=== PATIENT | female | born 1960 | race American Indian/Alaskan Native ===

== ENCOUNTER 2018-03-08 21:26 | Emergency (ER) | payer SELFPAY ==
[2018-03-08 21:36] VITALS: BP 149/98
[2018-03-08 21:48] LABS: Hemoglobin 11.9 gm/dl (10.1-14.3); Mean Corpuscular HGB Conc 35 % (30-34); Mean Corpuscular Volume 106 fl (79-97); Platelet Count 182 K/mm3 (140-440); Red Blood Count 3.22 M/mm3 (3.65-5.03); Red Cell Distribution Width 15.1 % (13.2-15.2)
[2018-03-08 22:01] LABS: Bilirubin,Urine NEG (Negative); Blood,Urine NEG (Negative); Color,Urine Straw (Yellow); Protein,Urine <15 mg/dL mg/dL (Negative); Urobilinogen,Urine < 2.0 mg/dL (<2.0); WBC,Urine < 1.0 /HPF (0.0-6.0)
[2018-03-08 22:42] LABS: Alanine Aminotransferase 67 units/L (7-56); Albumin 4.1 g/dL (3.9-5); BUN/Creatinine Ratio 11; Blood Urea Nitrogen 8 mg/dL (7-17); Calcium 9.5 mg/dL (8.4-10.2); Hemolysis Index 4
[2018-03-08 23:07] LABS: Total Cells Counted 100
[2018-03-08 23:08] LABS: Anisocytosis 1+; Basophils % (Manual) 0 % (0.0-1.8); Macrocytosis 1+; Platelet Estimate Consistent w Auto
[2018-03-09] MEDS ORDERED: K-DUR PO ONE (02:28)
--- NOTE | 2018-03-09 02:32 | Emergency Department Report ---
ED General Adult HPI - General Chief complaint: Weakness Stated complaint: HBP WEIGHTLOSS Time Seen by Provider: 03/09/18 01:38 Source: patient Mode of arrival: Ambulatory Limitations: No Limitations - History of Present Illness Initial comments: 57-year-old -[place] female presents to the ER with complaint of being out of her hypertensive medicines since October. Patient reports that she was brought here by her son because her toenails on both great toes are dark. Patient reports that she's had 10-12 pound weight loss in the last 6 months. But she does admit to decreased food consumption. Patient denies any abdominal pain. 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 Patient reports that she does not eat meats. She reports that she was on a blood pressure medication that she is not sure of the name and folic acid but has not taken it since October. She reports that she was being followed by [facility] but has not followed back up with them in the last 6 months. Patient does not ever recall having an HIV test. - Related Data Allergies Allergy/AdvReac Type Severity Reaction Status Date / Time ibuprofen [From Motrin] Allergy Unknown Verified 03/08/18 21:33 ED Review of Systems ROS: Stated complaint: HBP WEIGHTLOSS Other details as noted in HPI Comment: All other systems reviewed and negative Skin: change in hair/nails ED Past Medical Hx - Past Medical History Hx Hypertension: Yes - Surgical History Past Surgical History?: No - Social History Smoking Status: Never Smoker Substance Use Type: Alcohol ED Physical Exam - General Limitations: No Limitations General appearance: alert, in no apparent distress - Head Head exam: Present: atraumatic, normocephalic - Eye Eye exam: Present: EOMI - ENT ENT exam: Present: mucous membranes moist - Respiratory Respiratory exam: Present: normal lung sounds bilaterally. Absent: respiratory distress - Cardiovascular Cardiovascular Exam: Present: regular rate, normal rhythm. Absent: systolic murmur, diastolic murmur, rubs, gallop - GI/Abdominal GI/Abdominal exam: Present: soft, normal bowel sounds. Absent: tenderness, guarding - Neurological Exam Neurological exam: Present: alert, oriented X3 - Psychiatric Psychiatric exam: Present: normal affect, normal mood - Skin Skin exam: Present: warm, dry, intact. Absent: rash - Expanded Skin Exam Expanded Distribution of rash: other (bilateral great toe nails with dark nails, no swelling nonerythematous nontender to palpate.) ED Course Vital Signs 03/08/18 03/08/18 21:31 21:33 Temperature 98.2 F 98.2 F Pulse Rate 76 81 Respiratory 18 16 Rate Blood Pressure 149/98 149/98 O2 Sat by Pulse 97 98 Oximetry ED Medical Decision Making - Lab Data Result diagrams: 03/08/18 21:39 03/08/18 21:39 - Medical Decision Making Patient has been evaluated by this provider in fast track. Constipation that her potassium was low at 3.2 we will give patient potassium 40 mEq by mouth. Discussed the patient the importance of eating calcium which foods. Discussed the patient she has a nail fungus. Discussed patient since she has abnormal LFTs because of her alcohol drinking daily that she is not a candidate for oral antifungal medications. Discussed the patient she can try using some Vicks vapor cream rub onto the top of the nail. Discussed the patient that her blood pressure is 149/98 that she needs to follow up with [facility] for them to evaluate her for blood pressure medication since patient does not know what her blood pressure location is. Also discussed the patient that her 10-12 pound weight loss in the last 6 months could be because she has a decrease in food consumption she may be replacing calories with drinking alcohol. And also that she has not had a HIV test ever that I recommend for her to at least have that done. Patient verbalizes understanding. Critical care attestation.: If time is entered above; I have spent that time in minutes in the direct care of this critically ill patient, excluding procedure time. ED Disposition Clinical Impression: Nail fungal infection, Hypokalemia, Abnormal LFTs (liver function tests), Abnormal weight loss Hypertension Qualifiers: Hypertension type: unspecified Qualified Code(s): I10 - Essential (primary) hypertension Disposition: DC-01 TO HOME OR SELFCARE Is pt being admited?: No Does the pt Need Aspirin: No Condition: Stable Instructions: Hypertension (ED), Hypokalemia (ED), Paronychia (ED), DASH Eating Plan (ED) Additional Instructions: Please decrease your alcohol consumption increase your potassium rich foods. He can try 6 vapor rub to rub on both toenails. Also recommend to change her socks and shoes so fungus does not continue to grow and feet be exposed. It is very important for you to follow up with your primary care provider and had listed one below for your convenience also I recommend getting an HIV tests. Referrals: MANUEL LOPES MD [Primary Care Provider] - 3-5 Days [facility] [Provider Group] - 3-5 Days Forms: Work/School Release Form(ED)
== END 2018-03-09 03:02 | disposition home or self-care (01) ==
LOC: ED 21:26
DX: L03.031 Cellulitis of right toe (principal); L03.032 Cellulitis of left toe; B35.1 Tinea unguium; E87.6 Hypokalemia; R63.4 Abnormal weight loss; R94.5 Abnormal results of liver function studies; I10 Essential (primary) hypertension
CPT/HCPCS: 36415; 80053; 81001; 85007; 85025; 99283

== ENCOUNTER 2018-04-09 14:45 | Emergency (ER) | payer SELFPAY ==
--- NOTE | 2018-04-09 16:08 | Emergency Department Report ---
ED General Adult HPI - General Chief complaint: Altered Mental Status Stated complaint: AMS/ETOH Time Seen by Provider: 04/09/18 16:07 Source: EMS Mode of arrival: Stretcher Limitations: Altered Mental Status - History of Present Illness Initial comments: Patient is a 57 year old female with a history of alcohol abuse presents after she came to the ER for detox. Patient states that she drinks whiskey daily. Patient denies SI or HI. Patient denies auditory hallucinations. Patient denies any recent falls. Patient states that she came here without her family because she wanted to be treated. Patient denies any chest pain, abdominal pain or shortness of breath. - Related Data Allergies Allergy/AdvReac Type Severity Reaction Status Date / Time ibuprofen [From Motrin] Allergy Unknown Verified 03/08/18 21:33 ED Review of Systems ROS: Stated complaint: AMS/ETOH Other details as noted in HPI Constitutional: denies: chills, fever Eyes: denies: eye pain, eye discharge, vision change ENT: denies: ear pain, throat pain Respiratory: denies: cough, shortness of breath, wheezing Cardiovascular: denies: chest pain, palpitations Endocrine: no symptoms reported Gastrointestinal: denies: abdominal pain, nausea, diarrhea Genitourinary: denies: urgency, dysuria, discharge Musculoskeletal: denies: back pain, joint swelling, arthralgia Skin: denies: rash, lesions Neurological: denies: headache, weakness, paresthesias Psychiatric: denies: anxiety, depression, auditory hallucinations, visual hallucinations, suicidal thoughts Hematological/Lymphatic: denies: easy bleeding, easy bruising ED Past Medical Hx - Past Medical History Previous Medical History?: Yes Hx Hypertension: Yes (not taking meds) Additional medical history: high cholestrol, not taking meds. cyprohetpad 4mg. asprin 81. folic acid. gemfibrozil 600mg - Social History Smoking Status: Unknown if ever smoked Substance Use Type: Alcohol ED Physical Exam - General Limitations: Altered Mental Status General appearance: appears intoxicated (awake; ) - Head Head exam: Present: atraumatic, normocephalic - Eye Eye exam: Present: normal appearance - ENT ENT exam: Present: mucous membranes dry - Neck Neck exam: Present: normal inspection - Respiratory Respiratory exam: Present: normal lung sounds bilaterally. Absent: respiratory distress - Cardiovascular Cardiovascular Exam: Present: regular rate, normal rhythm. Absent: systolic murmur, diastolic murmur, rubs, gallop - GI/Abdominal GI/Abdominal exam: Present: soft, normal bowel sounds - Extremities Exam Extremities exam: Present: normal inspection - Back Exam Back exam: Present: normal inspection - Neurological Exam Neurological exam: Present: alert, oriented X3. Absent: motor sensory deficit - Psychiatric Psychiatric exam: Present: depressed. Absent: homicidal ideation, suicidal ideation - Skin Skin exam: Present: warm, dry, intact, normal color. Absent: rash ED Course Vital Signs 04/09/18 04/09/18 04/09/18 15:33 16:00 16:16 Temperature 97.6 F Pulse Rate 76 Respiratory 16 Rate Blood Pressure 143/123 142/82 Blood Pressure 110/75 [Left] O2 Sat by Pulse 94 95 95 Oximetry 04/09/18 04/09/18 04/09/18 16:30 17:46 18:00 Temperature Pulse Rate Respiratory Rate Blood Pressure 112/65 129/81 115/73 Blood Pressure [Left] O2 Sat by Pulse Oximetry 04/09/18 04/09/18 04/09/18 18:31 18:49 19:00 Temperature Pulse Rate Respiratory Rate Blood Pressure 142/96 142/96 122/85 Blood Pressure [Left] O2 Sat by Pulse Oximetry ED Medical Decision Making - Lab Data Result diagrams: 04/09/18 17:07 04/09/18 17:07 - Medical Decision Making Patient noted an alcohol level of 480. Patient currently on 10/07/2012. Patient to be reassessed by behavioral health team. Patient otherwise has no other concomitant metabolic abnormalities. - Differential Diagnosis Alcohol abuse; dehydration; anemia; Critical care attestation.: If time is entered above; I have spent that time in minutes in the direct care of this critically ill patient, excluding procedure time. ED Disposition Clinical Impression: Alcohol abuse Disposition: DC-01 TO HOME OR SELFCARE Is pt being admited?: No Condition: Stable Referrals: PRIMARY CARE, [Primary Care Provider] - 3-5 Days Time of Disposition: 20:16 Print Language: BRUNEIAN
[2018-04-09] MEDS ORDERED: NACL 0.9% 1000 ML 1,000 ML IV ONE (16:55)
[2018-04-09 17:49] LABS: Basophils # (Auto) 0.2 K/mm3 (0.0-0.1); Basophils % (Auto) 2.7 % (0.0-1.8); Eosinophils # (Auto) 0.1 K/mm3 (0.0-0.4); Hemoglobin 14.5 gm/dl (10.1-14.3); Lymphocytes # (Auto) 1.7 K/mm3 (1.2-5.4); Lymphocytes % (Auto) 29.7 % (13.4-35.0); Mean Corpuscular HGB Conc 35 % (30-34); Mean Corpuscular Volume 105 fl (79-97); Monocytes # (Auto) 0.5 K/mm3 (0.0-0.8); Monocytes % (Auto) 8.4 % (0.0-7.3); Platelet Count 316 K/mm3 (140-440); Red Blood Count 4.02 M/mm3 (3.65-5.03); Red Cell Distribution Width 15.1 % (13.2-15.2)
[2018-04-09 18:00] LABS: Alanine Aminotransferase 33 units/L (7-56); Albumin 4.7 g/dL (3.9-5); BUN/Creatinine Ratio 18; Blood Urea Nitrogen 14 mg/dL (7-17); Calcium 10.5 mg/dL (8.4-10.2); Hemolysis Index 4
[2018-04-09] MEDS ORDERED: ATIVAN IV ONE (20:39)
[2018-04-09 23:34] LABS: Amphetamine Screen,Urine PRESUMPTIVE NEGATIVE; Benzodiazepines Screen,Urine PRESUMPTIVE NEGATIVE; Cannabinoid Screen,Urine PRESUMPTIVE NEGATIVE; Cocaine Screen,Urine PRESUMPTIVE NEGATIVE; Methadone Screen,Urine PRESUMPTIVE NEGATIVE; Opiate Screen,Urine PRESUMPTIVE NEGATIVE
[2018-04-10] MEDS ORDERED: K-DUR PO ONE (00:05)
[2018-04-10] MEDS ORDERED: VITAMIN B-1 100 MG, FOLVITE 1 MG, INFUVITE 10 ML in NACL 0.9% 1000 ML 1,000 ML IV ONE (02:42)
[2018-04-10] MEDS ORDERED: NACL 0.9% 1000 ML 2,000 ML IV ONE (02:42)
[2018-04-10] MEDS ORDERED: VITAMIN B-1 PO ONE (03:00)
[2018-04-10] MEDS ORDERED: FOLVITE 1 MG, INFUVITE 10 ML in NACL 0.9% 1000 ML 1,000 ML IV ONE (03:00)
[2018-04-10 22:21] LABS: Bilirubin,Urine NEG (Negative); Blood,Urine NEG (Negative); Color,Urine Straw (Yellow); Mucus,Urine FEW /HPF; Protein,Urine <15 mg/dL mg/dL (Negative); Urobilinogen,Urine < 2.0 mg/dL (<2.0)
--- NOTE | 2018-04-11 13:55 | Consultation ---
History of Present Illness - Reason for Consult Consult date: 04/11/18 Reason for consult: Mental Health Evaluation Requesting physician: DIANNA ESCALANTE - Chief Complaint Chief complaint: "I want to stop drinking" - History of Present Psychiatric Illness 57 y.o. AA female who presented to the ER for ETOH. Today the patent is calm and cooperative during the assessment. She stated that she enjoy drinking alcohol (etoh), but is aware of the medical issues it can cause. She stated that she have been consuming alcohol (etoh) for more than 30 years. She denies attending AA or any other rehab services in the past. She stated that she is willing to a attend rehabs services once discharged. She denies being depressed or having manic episodes in the past. She denies SI/HI's and AVH's. She denies erratic sleep and a poor appetite. She denies recreational drug use. Medications and Allergies Allergies Allergy/AdvReac Type Severity Reaction Status Date / Time ibuprofen [From Motrin] Allergy Unknown Verified 03/08/18 21:33 Home Medications Medication Instructions Recorded Confirmed Last Taken Type Aspirin 81 mg PO DAILY 04/10/18 04/10/18 Unknown History Cyproheptadine [Periactin] 1 tab PO DAILY 04/10/18 04/10/18 Unknown History Folic Acid 1 tab PO DAILY 04/10/18 04/10/18 Unknown History Gemfibrozil [Lopid] 1 tab PO BID 04/10/18 04/10/18 Unknown History Past psychiatric history - Past Medical History Past Medical History: No medical history Past Surgical History: No surgical history - past Psychiatric treatment and history psychiatric treatment history: Hx of Alcohol abuse. Denies a fa, psy hx. - Social History Social history: lives with family Mental Status Exam - Vital signs Last Vital Signs Temp 98.3 F 04/11/18 08:59 Pulse 87 04/11/18 08:59 Resp 18 04/11/18 08:59 BP 149/109 04/11/18 08:59 Pulse Ox 99 04/11/18 08:59 - Exam Narrative exam: MSE: Appearance: calm, cooperative Behavior: regular eye contact Speech: regular rate and tone Mood: "okay" Affect: congruent to mood Thought Process: linear Thought Content: denies SI/HI's and AVH's Motor Activity: ambulatory Cognition: A/O x3 Insight: appropriate Judgment: appropriate Results Result Diagrams: 04/09/18 17:07 04/09/18 17:07 Abnormal lab results 04/10/18 Range/Units 21:19 Urine pH 8.0 H (5.0-7.0) Urine WBC (Auto) 23.0 H (0.0-6.0) /HPF All other labs normal. Assessment and Plan Assessment and plan: Impression: Alcohol Use DO. Today the patient is calm during the assessment. DDx: R/O Bipolar DO Recommendation/Plan: Rescind 2012. Discussed the importance to abstain from alcohol consumption (etoh). Dispo: The patient can follow up with [facility] or [facility] for outpatient rehab services. Staffed with Dr Simpson.
[2018-04-11 15:55] VITALS: BP 140/82
== END 2018-04-11 16:08 | disposition home or self-care (01) ==
LOC: ED 14:45
DX: F10.239 Alcohol dependence with withdrawal, unspecified (principal); Z72.89 Other problems related to lifestyle; Z88.6 Allergy status to analgesic agent; I10 Essential (primary) hypertension; E78.00 Pure hypercholesterolemia, unspecified
CPT/HCPCS: 36415; 80053; 80307; 81001; 82140; 82962; 85025; 96361; 96365; 96366; 96375; 99284; G0480; J2060; J3411; J7030; 80320

== ENCOUNTER 2018-04-12 17:30 | Inpatient (IN) | payer SELFPAY ==
[2018-04-12] MEDS ORDERED: NACL 0.9% 1000 ML 1,000 ML IV ONE (18:08)
--- NOTE | 2018-04-12 18:13 | Emergency Department Report ---
HPI - General Chief Complaint: Syncope Time Seen by Provider: 04/12/18 18:08 - HPI HPI: 57-year-old female presents to the emergency department via EMS after she passed out while taking a shower just prior to presentation. The patient was discharged from this emergency department yesterday after spending a few days here for alcohol withdrawal and detoxification. She says she has not had a drink in 4 days but prior to that was a daily drinker. She is currently awake and alert but just complains of a mild headache. She otherwise has a past medical history of high cholesterol and hypertension. She has not taken anything for her symptoms prior to arrival today. ED Past Medical Hx - Past Medical History Hx Hypertension: Yes (not taking meds) Additional medical history: high cholestrol, not taking meds. cyprohetpad 4mg. asprin 81. folic acid. gemfibrozil 600mg - Social History Smoking Status: Unknown if ever smoked Substance Use Type: Alcohol - Medications Home Medications: Home Medications Medication Instructions Recorded Confirmed Last Taken Type Aspirin 81 mg PO DAILY 04/10/18 04/10/18 Unknown History Cyproheptadine [Periactin] 1 tab PO DAILY 04/10/18 04/10/18 Unknown History Folic Acid 1 tab PO DAILY 04/10/18 04/10/18 Unknown History Gemfibrozil [Lopid] 1 tab PO BID 04/10/18 04/10/18 Unknown History ED Review of Systems ROS: Stated complaint: SYNCOPAL EPISODE Other details as noted in HPI Comment: All other systems reviewed and negative Constitutional: denies: chills, fever Eyes: denies: eye pain, vision change ENT: denies: ear pain, throat pain Respiratory: denies: cough, shortness of breath Cardiovascular: syncope. denies: chest pain Gastrointestinal: denies: abdominal pain, vomiting Genitourinary: denies: dysuria, discharge Musculoskeletal: denies: back pain, arthralgia Skin: denies: rash, lesions Neurological: headache. denies: confusion Physical Exam - Physical Exam Physical Exam: GENERAL: The patient is well-developed well-nourished. HEENT: Normocephalic. Atraumatic. Patient has moist mucous membranes. EYES: Extraocular motions are intact. Pupils are equal and reactive to light bilaterally. No nystagmus. NECK: Supple. Trachea is midline. CHEST/LUNGS: Clear to auscultation. There is no respiratory distress noted. HEART/CARDIOVASCULAR: Regular. There is no tachycardia. There is no obvious murmur. ABDOMEN: Abdomen is soft, nontender. Patient has normal bowel sounds. There is no abdominal distention. SKIN: Skin is warm and dry. NEURO: The patient is awake, alert, and oriented. The patient is cooperative. The patient has no focal neurologic deficits. The patient has normal speech. Cranial nerves II through XII grossly intact. The patient has a mild bilateral upper extremity distal tremor. MUSCULOSKELETAL: There is no tenderness or deformity. There is no limitation range of motion. There is no evidence of acute injury. ED Medical Decision Making - Lab Data Result diagrams: 04/12/18 19:21 04/12/18 19:21 - EKG Data -: EKG Interpreted by Me EKG shows normal: sinus rhythm, axis, intervals, QRS complexes (incomplete RBBB), ST-T waves Rate: normal - Radiology Data Radiology results: report reviewed, image reviewed interpreted by me: Chest x-ray does not show any pneumothorax, pleural effusion, pneumonia or obvious focal consolidation. PROCEDURE: CT head without contrast. TECHNIQUE: Computerized tomography of the head was performed without contrast material. HISTORY: Syncope. COMPARISON: No prior studies are available for comparison. FINDINGS: The ventricles are normal in size. The tan matter and white matter appear normal. There is calcification in the globus pallidus bilaterally. There are no mass lesions. There is no intracranial hemorrhage. The calvarium appears intact. The mastoid air cells and visualized paranasal sinuses are well aerated. IMPRESSION: Normal study. Transcribed By: [facility] Dictated By: CHAPINCITO GARCES MD Electronically Authenticated By: CHAPINCITO GARCES MD Signed Date/Time: 04/12/182119 - Medical Decision Making This patient presents to the emergency department after having a syncopal episode just prior to arrival. Patient was recently in this emergency Department for multiple days as she withdrew and had detox from alcohol abuse and dependence. CT of the head did not show any bleed, shift, mass, ischemia or any other acute process. EKG did not show any signs of ST elevation NM or dysrhythmia. Patient's labs were mostly unremarkable except for a mild urinary tract infection and significant hypomagnesemia with a level of 1.1. She was started off with 2 g of magnesium sulfate and she was given some Macrobid for the urinary tract infection. There is been no further syncopal episodes. However I have concern that the patient's episode of passing out could have been either secondary to this electrolyte abnormality, or could have been an alcohol withdrawal seizure that was unwitnessed since she was in the shower. The patient will get admitted to the hospital starting off as an observational stay for further evaluation and was accepted for admission by the hospitalist, Dr. Araujo. - Differential Diagnosis vasovagal, dysrhythmia, electrolyte abnormality, alcohol withdrawal seizure Critical Care Time: No Critical care attestation.: If time is entered above; I have spent that time in minutes in the direct care of this critically ill patient, excluding procedure time. ED Disposition Clinical Impression: Hypomagnesemia Syncope Qualifiers: Syncope type: unspecified Qualified Code(s): R55 - Syncope and collapse Disposition: 09 OP ADMIT IP TO THIS HOSP Is pt being admited?: Yes Condition: Fair Instructions: Syncope (ED) Referrals: PRIMARY CARE, [Primary Care Provider] - 3-5 Days Time of Disposition: 22:17
[2018-04-12 19:37] LABS: Basophils # (Auto) 0.1 K/mm3 (0.0-0.1); Eosinophils # (Auto) 0.1 K/mm3 (0.0-0.4); Hematocrit 37.6 % (30.3-42.9); Lymphocytes # (Auto) 0.5 K/mm3 (1.2-5.4); Mean Corpuscular HGB Conc 35 % (30-34); Mean Corpuscular Volume 103 fl (79-97); Monocytes # (Auto) 0.5 K/mm3 (0.0-0.8); Monocytes % (Auto) 6.9 % (0.0-7.3); Platelet Count 213 K/mm3 (140-440); Red Blood Count 3.63 M/mm3 (3.65-5.03); Red Cell Distribution Width 14.6 % (13.2-15.2)
--- NOTE | 2018-04-12 20:03 | XRay Report ---
FINAL REPORT PROCEDURE: Chest. TECHNIQUE: Portable AP view. HISTORY: Syncope. COMPARISON: No prior studies are available for comparison. FINDINGS: The heart and mediastinum appear normal. There is calcification in the thoracic aorta. The lungs are clear and well expanded. There are no pleural effusions. The soft tissues and regional skeleton are u nremarkable. IMPRESSION: Negative portable chest.
[2018-04-12 20:11] LABS: Bacteria,Urine 1+ /HPF (Negative); Bilirubin,Urine NEG (Negative); Blood,Urine NEG (Negative); Color,Urine Yellow (Yellow); Hyaline Casts,Urine 6 /LPF; Mucus,Urine FEW /HPF
[2018-04-12 20:18] LABS: Alanine Aminotransferase 21 units/L (7-56); Albumin 3.9 g/dL (3.9-5); BUN/Creatinine Ratio 14; Blood Urea Nitrogen 13 mg/dL (7-17); Calcium 9.5 mg/dL (8.4-10.2); Hemolysis Index 7
[2018-04-12] MEDS ORDERED: MACROBID PO ONE (20:18)
[2018-04-12] MEDS ORDERED: MAGNESIUM SULFATE 2GM/50ML 2 GM/50 ML BAG IV ONE ×2 (20:29→22:50)
--- NOTE | 2018-04-12 21:20 | Cat Scan Report ---
FINAL REPORT PROCEDURE: CT head without contrast. TECHNIQUE: Computerized tomography of the head was performed without contrast material. HISTORY: Syncope. COMPARISON: No prior studies are available for comparison. FINDINGS: The ventricles are normal in size. The tan matter and white matter appear normal. There is calcifica tion in the globus pallidus bilaterally. There are no mass lesions. There is no intracranial hemorrha ge. The calvarium appears intact. The mastoid air cells and visualized paranasal sinuses are well aer ated. IMPRESSION: Normal study.
[2018-04-12] MEDS ORDERED: ATIVAN IV PRN (22:50)
[2018-04-12] MEDS ORDERED: ZOFRAN IV PRN (22:51)
[2018-04-12] MEDS ORDERED: TYLENOL PO PRN (22:51)
[2018-04-13 02:11] LABS: Creatine Kinase MB < 1.0 ng/mL (0.0-4.0)
[2018-04-13] MEDS: NACL 0.9% 1000 ML 1,000 ML IV SCH ×2 (02:41→17:39)
--- NOTE | 2018-04-13 05:56 | History and Physical Report ---
CHIEF COMPLAINT: Syncopal attack. HISTORY OF PRESENT ILLNESS: The patient is a 57-year-old female, who was recently discharged from this hospital about 24 hours prior to presentation after being treated for alcohol withdrawal and request for the detoxification. The patient states she was in the shower and passed out and was rescued by her son, who had when she fell and there was a history of dizziness before the syncopal attack and there was no history of chest pain, shortness of breath, fever, nausea or vomiting prior to the syncopal attack and the patient states she has not had any drink in 4 days, was noted that she used to drink on a daily basis. There is history of headache currently, but no history of fever or chills. PAST MEDICAL HISTORY: The patient's past medical history is pertinent for hypertension, high cholesterol. PAST SURGICAL HISTORY: Unremarkable. FAMILY HISTORY: Family history is noncontributory. SOCIAL HISTORY: The patient drinks alcohol regularly, and does not smoke cigarette, does not use illicit drugs. MEDICATIONS: The patient is on aspirin 81 mg by mouth daily, cyproheptadine 1 tablet by mouth daily, folic acid 1 tablet by mouth daily, gemfibrozil 1 tablet by mouth twice daily. ALLERGIES: THE PATIENT IS ALLERGIC TO IBUPROFEN. REVIEW OF SYSTEMS: CONSTITUTIONAL: There is no fever, no chills, no diaphoresis. HEENT: There is headache, but no sore throat. CARDIOVASCULAR SYSTEM: There is no chest pain or orthopnea. RESPIRATORY SYSTEM: There is no shortness of breath or cough. GASTROINTESTINAL SYSTEM: There is no nausea, no vomiting, no abdominal pain, diarrhea or constipation. NEUROLOGICAL SYSTEM: Dizziness is present, syncopal attack is present. No altered mental status. MUSCULOSKELETAL SYSTEM: There is no joint pain or swelling. DERMATOLOGICAL SYSTEM: There is no skin rash or itching. GENITOURINARY SYSTEM: There is no dysuria, hematuria or flank pain. Rest of system review is normal. PHYSICAL EXAMINATION: GENERAL: At the time of exam, the patient was found to be alert, oriented x 3 and not in acute distress. VITAL SIGNS: Shows a temperature of 98.1 degrees Fahrenheit, pulse of 81, respirations 18, blood pressure 124/81, O2 sat of 100% on room air. HEENT: Showed pupils to be equal, round, reactive to light and accommodation. Extraocular muscles are intact. NECK: Supple with no JVD or carotid bruit. CARDIOVASCULAR SYSTEM: Showed normal first and second heart sounds with no gallops or murmurs. RESPIRATORY SYSTEM: Show good air entry on both sides of the lungs with no abnormal breath sounds. GASTROINTESTINAL SYSTEM: Show abdomen to be full, soft, nontender with no organomegaly or rigidity. NEUROLOGIC: Shows no nonfocal deficit. MUSCULOSKELETAL SYSTEM: Show no joint swelling or tenderness. DERMATOLOGICAL SYSTEM: Show no skin rash. GENITOURINARY SYSTEM: Showing no costovertebral angle tenderness. PERTINENT LABORATORY AND IMAGING STUDIES: The patient had chest x-ray done that was unremarkable. Head CT without contrast was normal. The patient's lab results show CBC with normal white count, normal hemoglobin and normal hematocrit with CBC differential showing elevated segmented neutrophil count of 84.1. The patient's D-dimer level was unremarkable. Chemistry shows slightly decreased sodium level of 136 and low magnesium level of 1.1 with liver transaminases showing elevated AST of 57 with normal ALT of 21, consistent with alcohol abuse. The patient's urinalysis show elevated urine wbc's of 15 with moderate urine leukocyte esterase, but negative urine nitrite and 1+ bacteria. DIAGNOSES: 1. Syncopal attack. 2. Alcohol withdrawal. 3. Low magnesium levels. 4. Urinary tract infection. PLAN OF CARE: 1. The patient will be admitted to telemetry. 2. The patient will have 2D echo done this morning as well as bilateral carotid Doppler. 3. The patient will have IV ceftriaxone 1 gram daily for treatment of UTI. 4. The patient will have 2 grams of magnesium sulfate in 50 mL of normal saline given an additional to the 2 gram given in the Emergency Room already. 5. The patient will be on IV Ativan 1 mg every 4 hours as needed for anxiety and shakes of alcohol withdrawal. 6. The patient will have cardiac enzymes involving troponin, total CK and CK-MB checked serially every 6 hours x 2 more levels. 7. The patient will be on IV normal saline running at 100 mL an hour. 8. The patient's home medication will be started as shown in the medication reconciliation section. JOB# [id number] OCN/NTS
[2018-04-13 08:40] LABS: Creatine Kinase MB < 1.0 ng/mL (0.0-4.0)
--- NOTE | 2018-04-13 10:44 | Vascular Lab Report ---
FINAL REPORT EXAM: VL CAROTID DUPLEX BILAT HISTORY: SYNCOPE TECHNIQUE: Carotid ultrasound. Degree of carotid stenosis calculated by indirect methods via the pea k systolic velocities of the ICA and CCA and reference with the society of Radiologist and Ul[employer] consensus conference radiology 2003. PRIORS: None currently available. FINDINGS: RIGHT CCA, ICA, and ECA (cm/s): 97, 88, and 39. Ratio = 0.91. LEFT CCA, ICA, and ECA (cm/s): 74, 93, and 39. Ratio = 1.25. There is plaque in both carotids. Both vertebral arteries demonstrate antegrade flow. Normal spectral rhythm is identified. IMPRESSION: No hemodynamically significant (> 50%) stenosis noted based on the ratios, velocities, and color D oppler images.
[2018-04-13] MEDS: ROCEPHIN/NS 1 GM/50 ML 1 GM/50 ML BAG IV SCH (10:56)
[2018-04-13] MEDS: FOLVITE PO SCH (10:59)
[2018-04-13] MEDS: HCTZ PO SCH (10:59)
[2018-04-13] MEDS: PERIACTIN PO SCH (11:00)
[2018-04-13] MEDS: LOPID PO SCH ×2 (11:00→22:44)
[2018-04-13] MEDS: ZESTRIL PO SCH (13:09)
--- NOTE | 2018-04-13 13:18 | Progress Note ---
Assessment and Plan Assessment and plan: Syncope -Carotid Doppler US negative for significant stenosis -Echocardiogram showed EF of 55-60%, normal diastolic dysfunction Acute alcohol withdrawal -Stable on protocol -Patient requested for help for alcohol abuse, family service caseworker consulted Uncontrolled hypertension -Home meds resumed, add additional antihypertensive if needed UTI -On IV antibiotic -Urine culture pending Hypomagnesemia -Repleted, will monitor Hypercholesterolemia -cont Lopid Disposition: For discharge in a.m. if clinically stable History Interval history: Patient has no new complaints. She reports feeling better today. No agitation reported. Hospitalist Physical - Constitutional Vitals: Temp Pulse Resp BP Pulse Ox 97.8 F 66 18 160/80 100 04/13/18 05:36 04/13/18 05:36 04/13/18 05:36 04/13/18 13:09 04/13/18 05:36 General appearance: Present: no acute distress - EENT Eyes: Present: PERRL, EOM intact ENT: hearing intact, clear oral mucosa - Neck Neck: Present: supple - Respiratory Respiratory: bilateral: CTA - Cardiovascular Rhythm: regular Heart Sounds: Present: S1 & S2 - Extremities Extremities: No edema - Abdominal General gastrointestinal: soft, non-tender, non-distended, normal bowel sounds - Neurologic Neurologic: CNII-XII intact Results - Labs CBC & Chem 7: 04/12/18 19:21 04/12/18 19:21 Labs: Laboratory Last Values WBC 6.7 K/mm3 (4.5-11.0) 04/12/18 19:21 RBC 3.63 M/mm3 (3.65-5.03) L 04/12/18 19:21 Hgb 13.0 gm/dl (10.1-14.3) 04/12/18 19:21 Hct 37.6 % (30.3-42.9) 04/12/18 19:21 MCV 103 fl (79-97) H 04/12/18 19:21 MCH 36 pg (28-32) H 04/12/18 19:21 MCHC 35 % (30-34) H 04/12/18 19:21 RDW 14.6 % (13.2-15.2) 04/12/18 19:21 Plt Count 213 K/mm3 (140-440) 04/12/18 19:21 Lymph % (Auto) 7.0 % (13.4-35.0) L 04/12/18 19:21 Grainger % (Auto) 6.9 % (0.0-7.3) 04/12/18 19:21 Eos % (Auto) 1.0 % (0.0-4.3) 04/12/18 19:21 Baso % (Auto) 1.0 % (0.0-1.8) 04/12/18 19:21 Lymph # 0.5 K/mm3 (1.2-5.4) L 04/12/18 19:21 Grainger # 0.5 K/mm3 (0.0-0.8) 04/12/18 19:21 Eos # 0.1 K/mm3 (0.0-0.4) 04/12/18 19:21 Baso # 0.1 K/mm3 (0.0-0.1) 04/12/18 19:21 Seg Neutrophils % 84.1 % (40.0-70.0) H 04/12/18 19:21 Seg Neutrophils # 5.6 K/mm3 (1.8-7.7) 04/12/18 19:21 D-Dimer 228.36 ng/mlDDU (0-234) 04/12/18 19:21 Sodium 136 mmol/L (137-145) L 04/12/18 19:21 Potassium 3.7 mmol/L (3.6-5.0) 04/12/18 19:21 Chloride 95.2 mmol/L (98-107) L 04/12/18 19:21 Carbon Dioxide 28 mmol/L (22-30) 04/12/18 19:21 Anion Gap 17 mmol/L 04/12/18 19:21 BUN 13 mg/dL (7-17) 04/12/18 19:21 Creatinine 0.9 mg/dL (0.7-1.2) 04/12/18 19:21 Estimated GFR > 60 ml/min 04/12/18 19:21 BUN/Creatinine Ratio 14 % 04/12/18 19:21 Glucose 95 mg/dL (65-100) 04/12/18 19:21 Calcium 9.5 mg/dL (8.4-10.2) 04/12/18 19:21 Magnesium 3.00 mg/dL (1.7-2.3) H 04/13/18 07:11 Total Bilirubin < 0.20 mg/dL (0.1-1.2) 04/12/18 19:21 AST 57 units/L (5-40) H 04/12/18 19:21 ALT 21 units/L (7-56) 04/12/18 19:21 Alkaline Phosphatase 76 units/L (35-129) 04/12/18 19:21 Total Creatine Kinase 65 units/L (30-135) 04/13/18 07:11 CK-MB (CK-2) < 1.0 ng/mL (0.0-4.0) 04/13/18 07:11 CK-MB (CK-2) Rel Index 1.5 (0-4) 04/13/18 07:11 Troponin T < 0.010 ng/mL (0.00-0.029) 04/13/18 07:11 Total Protein 7.2 g/dL (6.3-8.2) 04/12/18 19:21 Albumin 3.9 g/dL (3.9-5) 04/12/18 19:21 Albumin/Globulin Ratio 1.2 % 04/12/18 19:21 Urine Color Yellow (Yellow) 04/12/18 19:55 Urine Turbidity Clear (Clear) 04/12/18 19:55 Urine pH 6.0 (5.0-7.0) 04/12/18 19:55 Ur Specific [place] 1.018 (1.003-1.030) 04/12/18 19:55 Urine Protein 30 mg/dl mg/dL (Negative) 04/12/18 19:55 Urine Glucose (UA) Neg mg/dL (Negative) 04/12/18 19:55 Urine Ketones Neg mg/dL (Negative) 04/12/18 19:55 Urine Blood Neg (Negative) 04/12/18 19:55 Urine Nitrite Neg (Negative) 04/12/18 19:55 Urine Bilirubin Neg (Negative) 04/12/18 19:55 Urine Urobilinogen 2.0 mg/dL (<2.0) 04/12/18 19:55 Ur Leukocyte Esterase Mod (Negative) 04/12/18 19:55 Urine WBC (Auto) 15.0 /HPF (0.0-6.0) H 04/12/18 19:55 Urine RBC (Auto) 3.0 /HPF (0.0-6.0) 04/12/18 19:55 U Epithel Cells (Auto) 1.0 /HPF (0-13.0) 04/12/18 19:55 Urine Bacteria (Auto) 1+ /HPF (Negative) 04/12/18 19:55 Hyaline Casts 6 /LPF 04/12/18 19:55 Urine Mucus Few /HPF 04/12/18 19:55 Plasma/Serum Alcohol < 0.01 % (0-0.07) 04/12/18 19:21
[2018-04-13] MEDS ORDERED: LIBRIUM PO SCH (14:00)
[2018-04-14] MEDS: NACL 0.9% 1000 ML 1,000 ML IV SCH (03:16)
[2018-04-14 07:33] LABS: BUN/Creatinine Ratio 17; Blood Urea Nitrogen 12 mg/dL (7-17); Calcium 9.7 mg/dL (8.4-10.2); Hemolysis Index 66
[2018-04-14] MEDS: PERIACTIN PO SCH (08:50)
[2018-04-14] MEDS: LOPID PO SCH (09:00)
[2018-04-14] MEDS: HCTZ PO SCH (09:00)
[2018-04-14] MEDS: FOLVITE PO SCH (09:00)
[2018-04-14] MEDS: ZESTRIL PO SCH (09:00)
[2018-04-14] MEDS: ROCEPHIN/NS 1 GM/50 ML 1 GM/50 ML BAG IV SCH (12:00)
--- NOTE | 2018-04-14 12:05 | Discharge Summary ---
Providers - Providers Date of Admission: 04/14/18 10:48 Date of discharge: 04/14/18 Attending physician: AYAZ GARICA 04/13/18 13:24 Consult to Case Management [CONS] Routine Services Needed at Discharge: Other Notified:: [email or web address] Additional Physician Instructions: alcohol use cessation Primary care physician: LENS CLEANER Hospitalization Condition: Fair Pertinent studies: Echocardiogram-normal LV function CT head-normal no lesions Carotid Doppler-than 50% stenosis Hospital course: 57-year-old female with history of hypertension and alcohol abuse admitted for Syncope. Workup so far negative. Patient is medically stable for discharge and follow-up with her primary care physician Syncope ?? Likely Vasovagal -Carotid Doppler US negative for significant stenosis -Echocardiogram showed EF of 55-60%, normal diastolic dysfunction Alcohol abuse Patient was not ordered CIWA protocol However patient is not having any withdrawal symptoms Resources for alcohol anonymous groups was provided by casework supervisor I personally discussed with casework supervisor hypertension -Home meds resumed, BP fair UTI -UA results reviewed - ? Pyuria Patient is asymptomatic -Urine culture no growth We will prescribe 3 day course of Cipro Hypomagnesemia -Repleted, will monitor Hypercholesterolemia -cont Lopid Disposition: DC-01 TO HOME OR SELFCARE Time spent for discharge: 38 min - Discharge Diagnoses (1) HTN (hypertension) Status: Acute Qualifiers: Hypertension type: essential hypertension Qualified Code(s): I10 - Essential (primary) hypertension Comment: Continue home medication (2) Hyperlipidemia Status: Chronic Qualifiers: Hyperlipidemia type: mixed hyperlipidemia Qualified Code(s): E78.2 - Mixed hyperlipidemia (3) UTI (urinary tract infection) Status: Acute Qualifiers: Urinary tract infection type: acute cystitis Hematuria presence: without hematuria Qualified Code(s): N30.00 - Acute cystitis without hematuria (4) Hypomagnesemia Status: Acute (5) Syncope Status: Acute Qualifiers: Syncope type: unspecified Qualified Code(s): R55 - Syncope and collapse Core Measure Documentation - Palliative Care Palliative Care/ Comfort Measures: Not Applicable - Core Measures Any of the following diagnoses?: none Exam - Constitutional Vitals: Temp Pulse Resp BP Pulse Ox 98.2 F 59 L 18 162/87 100 04/14/18 05:41 04/14/18 09:00 04/14/18 05:41 04/14/18 09:00 04/14/18 05:41 General appearance: Present: no acute distress - EENT Eyes: Present: PERRL, EOM intact ENT: hearing intact, clear oral mucosa - Neck Neck: Present: supple, normal ROM - Respiratory Respiratory effort: normal Respiratory: bilateral: CTA - Cardiovascular Rhythm: regular Heart Sounds: Present: S1 & S2 - Extremities Extremities: No edema Peripheral Pulses: within normal limits - Abdominal General gastrointestinal: Present: soft, non-tender. Absent: hepatomegaly, splenomegaly - Rectal Rectal Exam: deferred - Integumentary Integumentary: Present: clear - Musculoskeletal Musculoskeletal: strength equal bilaterally - Psychiatric Psychiatric: appropriate mood/affect - Neurologic Neurologic: no focal deficits Plan Activity: advance as tolerated Weight Bearing Status: Weight Bear as Tolerated Diet: regular, low fat, low salt Follow up with: PRIMARY CARE, [Primary Care Provider] - 3-5 Days Prescriptions: Ciprofloxacin HCl [Cipro] 500 mg PO BID #6 tablet Folic Acid 1 tab PO DAILY #30
[2018-04-14 12:15] VITALS: BP 126/76
== END 2018-04-14 19:00 | disposition home or self-care (01) | DRG 312 ==
LOC: ED 17:30 → INTOOBSV 21:54 → 3A 21:54 → OBSVTOIN 04-14 10:48
PROVIDERS: ADMIT Internal Medicine; ATTEND Internal Medicine
DX: R55 Syncope and collapse (principal); N30.00 Acute cystitis without hematuria; F10.239 Alcohol dependence with withdrawal, unspecified; E83.42 Hypomagnesemia; I10 Essential (primary) hypertension; E78.00 Pure hypercholesterolemia, unspecified; E78.2 Mixed hyperlipidemia; Z79.82 Long term (current) use of aspirin; Z79.899 Other long term (current) drug therapy
CPT/HCPCS: 36415; 70450; 71045; 80048; 80053; 80320; 81001; 82550; 82553; 83735; 84484; 85025; 85379; 87086; 93005; 93010; 93306; 93880; 96361; 96365; G0378; G0480; J0696; J3475; J7030

== ENCOUNTER 2018-06-10 18:53 | Emergency (ER) | payer OTHER ==
[2018-06-10 19:02] VITALS: BP 142/77
--- NOTE | 2018-06-10 19:02 | Emergency Department Report ---
Chief Complaint: Extremity Injury, Lower Stated Complaint: LEFT FOOT INJURY Time Seen by Provider: 06/10/18 18:58 - HPI History of Present Illness: no trauma no fall no hx gout can not explain the lateral foot pain ambulatory n/v intact MSE screening note: Focused history and physical exam performed. Due to findings the following was ordered: ED Disposition for MSE Condition: Stable
[2018-06-10] MEDS ORDERED: IBUPROFEN PO ONE (20:28)
--- NOTE | 2018-06-10 20:31 | XRay Report ---
PROCEDURE: XR FOOT 3+V LT TECHNIQUE: Left foot, 3 views HISTORY: l foot pain COMPARISONS: None FINDINGS: There is a fracture of the distal fourth metatarsal, without significant displacement. No joint dislo cation. No radiopaque foreign body. IMPRESSION: Fracture of the distal fourth metatarsal. This document is electronically signed by Jayne Crow MD., June 10 2018 08:29:54 PM ET
[2018-06-10] MEDS ORDERED: TYLENOL #3 PO ONE (20:45)
--- NOTE | 2018-06-10 20:46 | Emergency Department Report ---
ED Lower Extremity HPI - General Chief Complaint: Extremity Injury, Lower Stated Complaint: LEFT FOOT INJURY Time Seen by Provider: 06/10/18 18:58 Source: patient Mode of arrival: Ambulatory Limitations: No Limitations - History of Present Illness Initial Comments: PT COMES TO ER WITH LEFT FOOT PAIN. NO TRAUMA. DIFFICULTY WALKING N/V INTACT - Related Data Home Medications Medication Instructions Recorded Confirmed Last Taken Gemfibrozil [Lopid] 1 tab PO BID 04/10/18 04/12/18 04/12/18 hydroCHLOROthiazide 25 mg PO DAILY 04/12/18 04/12/18 04/12/18 [Hydrochlorothiazide] Previous Rx's Medication Instructions Recorded Last Taken Type Folic Acid 1 tab PO DAILY #30 04/14/18 Unknown Rx Lisinopril [Zestril TAB] 40 mg PO QDAY tablet 04/14/18 Unknown Rx Baclofen [Lioresal] 10 mg PO Q8H PRN #21 tab 06/25/18 Unknown Rx HYDROcodone/ACETAMINOPHEN [[place] 1 each PO Q6H PRN #10 tablet 06/28/18 Unknown Rx 5-325 Tablet] Acetaminophen [Tylenol] 500 mg PO Q6HR #30 tablet 06/30/18 Unknown Rx Amoxicillin [Amoxicillin TAB] 875 mg PO BID #14 tablet 06/30/18 Unknown Rx Nystas/Diphen/Xyl Visc/Mylanta 30 ml MM Q4H PRN #120 ml 06/30/18 Unknown Rx [Magic Mouthwash] guaiFENesin [Robitussin] 200 mg PO TID #80 ml 06/30/18 Unknown Rx Acetaminophen [Acetaminophen TAB] 1,000 mg PO Q6HR #30 tablet 07/01/18 Unknown Rx Allergies Allergy/AdvReac Type Severity Reaction Status Date / Time coconut Allergy Swelling Verified 06/30/18 22:29 ibuprofen [From Motrin] Allergy Unknown Verified 06/25/18 16:49 ED Review of Systems ROS: Stated complaint: LEFT FOOT INJURY Other details as noted in HPI Comment: All other systems reviewed and negative ED Past Medical Hx - Past Medical History Previous Medical History?: Yes Hx Hypertension: Yes Hx Congestive Heart Failure: No Hx Diabetes: No Hx Asthma: No Hx COPD: No Additional medical history: high cholestrol, not taking meds. cyprohetpad 4mg. asprin 81. folic acid. gemfibrozil 600mg - Surgical History Past Surgical History?: No - Social History Smoking Status: Never Smoker - Medications Home Medications: Home Medications Medication Instructions Recorded Confirmed Last Taken Type Gemfibrozil [Lopid] 1 tab PO BID 04/10/18 04/12/18 04/12/18 History hydroCHLOROthiazide 25 mg PO DAILY 04/12/18 04/12/18 04/12/18 History [Hydrochlorothiazide] Folic Acid 1 tab PO DAILY #30 04/14/18 Unknown Rx Lisinopril [Zestril TAB] 40 mg PO QDAY tablet 04/14/18 Unknown Rx Baclofen [Lioresal] 10 mg PO Q8H PRN #21 tab 06/25/18 Unknown Rx HYDROcodone/ACETAMINOPHEN [[place] 1 each PO Q6H PRN #10 tablet 06/28/18 Unknown Rx 5-325 Tablet] Acetaminophen [Tylenol] 500 mg PO Q6HR #30 tablet 06/30/18 Unknown Rx Amoxicillin [Amoxicillin TAB] 875 mg PO BID #14 tablet 06/30/18 Unknown Rx Nystas/Diphen/Xyl Visc/Mylanta 30 ml MM Q4H PRN #120 ml 06/30/18 Unknown Rx [Magic Mouthwash] guaiFENesin [Robitussin] 200 mg PO TID #80 ml 06/30/18 Unknown Rx Acetaminophen [Acetaminophen TAB] 1,000 mg PO Q6HR #30 tablet 07/01/18 Unknown Rx ED Physical Exam - General Limitations: No Limitations General appearance: alert - Head Head exam: Present: atraumatic, normocephalic - Eye Eye exam: Present: normal appearance, PERRL, EOMI Pupils: Present: normal accommodation - ENT ENT exam: Present: mucous membranes moist - Neck Neck exam: Present: normal inspection - Respiratory Respiratory exam: Present: normal lung sounds bilaterally - Cardiovascular Cardiovascular Exam: Present: regular rate - GI/Abdominal GI/Abdominal exam: Present: soft, normal bowel sounds - Extremities Exam Extremities exam: Present: normal inspection, full ROM - Expanded Lower Extremity Exam Left Lower Leg exam: Present: normal inspection Ankle exam: Present: normal inspection Foot/Toe exam: Present: tenderness. Absent: ecchymosis, dislocation, erythema, amputation, puncture wound, foreign body, calcaneal tenderness, tenderness at base of 5th metatarsal, nail avulsion Neuro vascular tendon exam: Present: no vascular compromise Gait: Positive: observed and limited by pain - Back Exam Back exam: Present: normal inspection - Neurological Exam Neurological exam: Present: alert, oriented X3, CN II-XII intact - Psychiatric Psychiatric exam: Present: normal affect, normal mood - Skin Skin exam: Present: warm, dry, intact ED Course Vital Signs 06/10/18 06/10/18 19:01 20:53 Temperature 98.3 F Pulse Rate 102 H Respiratory 18 15 Rate Blood Pressure 142/77 O2 Sat by Pulse 98 Oximetry ED Lower Extremity MDM - Radiology Data Radiology results: report reviewed, image reviewed - Medical Decision Making XRAY NOTED SPLINT DC HOME WITH DC PLAN OF CARE AND FOLLOW UP Vital Signs 06/10/18 06/10/18 19:01 20:53 Temperature 98.3 F Pulse Rate 102 H Respiratory 18 15 Rate Blood Pressure 142/77 O2 Sat by Pulse 98 Oximetry Critical care attestation.: If time is entered above; I have spent that time in minutes in the direct care of this critically ill patient, excluding procedure time. ED Disposition Clinical Impression: Fracture of metatarsal Disposition: DC-01 TO HOME OR SELFCARE Is pt being admited?: No Does the pt Need Aspirin: No Condition: Stable Instructions: Foot Fracture in Adults (ED) Additional Instructions: ice rest elevate motrin or tylenol for pain ortho shoe and crutches follow up this week with Dr Coronado referral below Referrals: LOGAN CORONADO MD [Staff Physician] - 3-5 Days Time of Disposition: 20:45
== END 2018-06-10 20:53 | disposition home or self-care (01) ==
LOC: ED 18:53
DX: S92.345A Nondisplaced fracture of fourth metatarsal bone, left foot, initial encounter for closed fracture (principal); I10 Essential (primary) hypertension; E78.00 Pure hypercholesterolemia, unspecified; Z88.6 Allergy status to analgesic agent; X58.XXXA Exposure to other specified factors, initial encounter; Y93.89 Activity, other specified; Y92.89 Other specified places as the place of occurrence of the external cause; Y99.8 Other external cause status
CPT/HCPCS: 99283; 99284

== ENCOUNTER 2018-06-25 16:45 | Emergency (ER) | payer OTHER ==
[2018-06-25 17:26] VITALS: BP 119/86
--- NOTE | 2018-06-25 17:29 | Emergency Department Report ---
Blank Doc - Documentation Documentation: 57 y o female presents with left foot and ankle pain that was injured 06/10/18 was seen here already states pain is worsen, thinks she may have re injured it did not f/u with ortho/ no insurance [facility] evaluate
[2018-06-25] MEDS ORDERED: FLEXERIL PO ONE (20:43)
[2018-06-25] MEDS ORDERED: TYLENOL PO ONE (20:43)
--- NOTE | 2018-06-25 21:57 | Emergency Department Report ---
ED Fall HPI - General Chief Complaint: Extremity Injury, Lower Stated Complaint: L FOOT PAIN Time Seen by Provider: 06/25/18 17:25 Source: patient Mode of arrival: Wheelchair Limitations: No Limitations - History of Present Illness Initial Comments: Patient is a 57-year-old -Italian female with a history of hypertension who presents to ED with complaint of severe left foot pain after she twisted the left foot and fell down while playing with her grandchild 2 days ago. Patient states that she had a fracture of the same foot on her toes and foot 3 weeks are in the process of healing well when this incident occurred 2 days ago. Patient states that she has not followed up with any orthopedic surgeon for the recent foot fracture that she had 3 weeks ago. Patient states that the pain is worse with any formal ambulation or activity range of motion of the left foot. Patient denies head or neck injury, back pain, hip pain, loss of consciousness, syncope, seizure or numbness and tingling of the left foot. MD Complaint: fall -: Sudden, days(s) (2) Fall From: standing, other (playing with grand child at a [place]) When Fall Occurred: # days SIDEHAND (2) Fall Witnessed: yes, by family, yes, by bystander Place Fall Occurred: other (Park) Loss of Consciousness: none Prolonged Down Time?: no Symptoms Prior to Fall: none Location: other (left foot) Location - Extremities: Left: Foot (pain) Severity: severe Severity scale (0 -10): 7 Quality: sharp, aching Context: tripped/slipped Associated Symptoms: denies: headache, neck pain, numbness, weakness, chest paint, shortness of breath, abdominal pain, hematuria, unable to walk, lightheaded, vertigo, confusion - Related Data Home Medications Medication Instructions Recorded Confirmed Last Taken Gemfibrozil [Lopid] 1 tab PO BID 04/10/18 04/12/18 04/12/18 hydroCHLOROthiazide 25 mg PO DAILY 04/12/18 04/12/18 04/12/18 [Hydrochlorothiazide] Previous Rx's Medication Instructions Recorded Last Taken Type Folic Acid 1 tab PO DAILY #30 04/14/18 Unknown Rx Lisinopril [Zestril TAB] 40 mg PO QDAY tablet 04/14/18 Unknown Rx Baclofen [Lioresal] 10 mg PO Q8H PRN #21 tab 06/25/18 Unknown Rx HYDROcodone/ACETAMINOPHEN [[place] 1 each PO Q6H PRN #12 tablet 06/25/18 Unknown Rx 5-325 Tablet] Allergies Allergy/AdvReac Type Severity Reaction Status Date / Time ibuprofen [From Motrin] Allergy Unknown Verified 06/25/18 16:49 ED Review of Systems ROS: Stated complaint: L FOOT PAIN Other details as noted in HPI Comment: All other systems reviewed and negative Constitutional: no symptoms reported, see HPI. denies: diaphoresis, fever, malaise, weakness, other Eyes: as per HPI. denies: eye pain, eye discharge, vision change ENT: as per HPI. denies: ear pain, throat pain, dental pain, hearing loss, congestion Respiratory: no symptoms reported, see HPI. denies: shortness of breath, SOB with exertion, wheezing Cardiovascular: as per HPI. denies: chest pain, palpitations, dyspnea on exertion, syncope, paroxysmal nocturnal dyspnea Endocrine: no symptoms reported, see HPI. denies: excessive sweating, flushing, intolerance to cold, intolerance to heat, increased hunger, increased thirst, increased urine, unexplained weight gain Gastrointestinal: as per HPI. denies: abdominal pain, nausea, vomiting, diarrhea, constipation, hematemesis, hematochezia Genitourinary: as per HPI. denies: urgency, dysuria, frequency, hematuria, abnormal menses, dyspareunia Musculoskeletal: as per HPI, joint swelling (left foot), arthralgia (left foot). denies: back pain Skin: as per HPI. denies: rash, lesions, change in color, change in hair/nails Neurological: as per HPI. denies: headache, weakness, paresthesias, confusion Psychiatric: as per HPI. denies: anxiety, auditory hallucinations, visual hallucinations Hematological/Lymphatic: as per HPI ED Past Medical Hx - Past Medical History Hx Hypertension: Yes Hx Congestive Heart Failure: No Hx Diabetes: No Hx Asthma: No Hx COPD: No Additional medical history: high cholestrol - Surgical History Past Surgical History?: No - Social History Smoking Status: Never Smoker Substance Use Type: None - Medications Home Medications: Home Medications Medication Instructions Recorded Confirmed Last Taken Type Gemfibrozil [Lopid] 1 tab PO BID 02/21/19 02/23/19 02/23/19 History hydroCHLOROthiazide 25 mg PO DAILY 04/12/18 04/12/18 04/12/18 History [Hydrochlorothiazide] Folic Acid 1 tab PO DAILY #30 04/14/18 Unknown Rx Lisinopril [Zestril TAB] 40 mg PO QDAY tablet 04/14/18 Unknown Rx Baclofen [Lioresal] 10 mg PO Q8H PRN #21 tab 06/25/18 Unknown Rx HYDROcodone/ACETAMINOPHEN [[place] 1 each PO Q6H PRN #12 tablet 06/25/18 Unknown Rx 5-325 Tablet] ED Physical Exam - General Limitations: No Limitations General appearance: alert, in no apparent distress - Head Head exam: Present: atraumatic, normocephalic, normal inspection - Eye Eye exam: Present: normal appearance, PERRL, EOMI. Absent: scleral icterus, conjunctival injection, nystagmus, periorbital swelling, periorbital tenderness - ENT ENT exam: Present: normal exam, normal orophraynx, mucous membranes moist, TM's normal bilaterally, normal external ear exam - Neck Neck exam: Present: normal inspection, full ROM. Absent: tenderness, lymphadenopathy - Respiratory Respiratory exam: Present: normal lung sounds bilaterally. Absent: respiratory distress, wheezes, rales, rhonchi, chest wall tenderness, accessory muscle use, decreased breath sounds - Cardiovascular Cardiovascular Exam: Present: regular rate, normal rhythm, normal heart sounds - GI/Abdominal GI/Abdominal exam: Present: soft, normal bowel sounds. Absent: distended, tenderness, guarding, hyperactive bowel sounds, hypoactive bowel sounds, organomegaly - Rectal Rectal exam: Present: deferred - Extremities Exam Extremities exam: Present: tenderness (left foot), normal capillary refill, join t swelling (left foot). Absent: full ROM (due to pain), pedal edema, calf tenderness - Back Exam Back exam: Present: normal inspection, full ROM. Absent: tenderness, CVA tenderness (R), CVA tenderness (L), muscle spasm, paraspinal tenderness, vertebral tenderness - Neurological Exam Neurological exam: Present: alert, oriented X3, CN II-XII intact, normal gait, reflexes normal - Psychiatric Psychiatric exam: Present: normal affect - Skin Skin exam: Present: warm, dry, intact, normal color ED Course Vital Signs 06/25/18 17:25 Temperature 97.8 F Pulse Rate 92 H Respiratory 16 Rate Blood Pressure 119/86 O2 Sat by Pulse 99 Oximetry - Reevaluation(s) Reevaluation #1: 06/25/18 21:58 Patient is alert and oriented 3 and is not in distress. Patient was treated for pain in the ED with Tylenol and Flexeril, and left foot x-ray also ordered. Patient advised to return to the ED immediately if symptoms get worse. 06/25/18 23:11 ED Medical Decision Making - Radiology Data Radiology results: report reviewed, image reviewed Left foot x-ray shows nondisplaced fractures of the necks of the 3rd and 4th metatarsals; also comminuted mildly displaced fractures of the base of the proximal 5th metatarsal. - Medical Decision Making Patient is alert and oriented 3 and is not in distress. Patient was treated for pain in the ED with Tylenol and Flexeril, and left foot x-ray shows nondisplaced fractures of the necks of the 3rd and 4th metatarsals; also comminuted mildly displaced fractures of the base of the proximal 5th metatarsal. Patient already had a postop shoe from the previous injury to the same foot, and/or heat to the ED. Patient's left foot was splinted with posterior short leg splint and patient discharged home on pain medications, and referred to the Orthopedic Surgeon radio station engineer, Dr. Coronado for follow-up. Patient advised to return to the ED immediately if symptoms get worse. - Differential Diagnosis Sprained left foot; muscle strain of left foot, contusion of left foot Critical care attestation.: If time is entered above; I have spent that time in minutes in the direct care of this critically ill patient, excluding procedure time. ED Disposition Clinical Impression: Sprain of left foot Qualifiers: Encounter type: subsequent encounter Qualified Code(s): S93.602D - Unspecified sprain of left foot, subsequent encounter Muscle strain of left foot Qualifiers: Encounter type: subsequent encounter Qualified Code(s): S96.912D - Strain of unspecified muscle and tendon at ankle and foot level, left foot, subsequent encounter Nondisplaced fracture of metatarsal bone of left foot Qualifiers: Encounter type: initial encounter Metatarsal bone: unspecified metatarsal Fracture type: closed Qualified Code(s): S92.302A - Fracture of unspecified metatarsal bone(s), left foot, initial encounter for closed fracture Disposition: TO HOME OR SELFCARE Is pt being admited?: No Does the pt Need Aspirin: No Condition: Stable Instructions: Muscle Strain (ED), Foot Sprain (ED), Musculoskeletal Pain (ED) Additional Instructions: Take medications with food, drink plenty of fluids and follow-up with their orthopedic surgeon radio station engineer Dr. Coronaod as advised if symptoms get worse. Return to the ED immediately if symptoms get worse Prescriptions: Baclofen [Lioresal] 10 mg PO Q8H PRN #21 tab PRN Reason: Spasms HYDROcodone/ACETAMINOPHEN [[place] 5-325 Tablet] 1 each PO Q6H PRN #12 tablet PRN Reason: Pain , Severe (7-10) Referrals: LOGAN CORONADO MD [Staff Physician] - 3-5 Days Time of Disposition: 22:02 Print Language: MALAY
--- NOTE | 2018-06-25 22:39 | XRay Report ---
PROCEDURE: XR FOOT 3+V LT TECHNIQUE: Left foot radiographs, AP, lateral, and oblique views. HISTORY: fall COMPARISONS: None . FINDINGS: Fracture (s) and/or Dislocation(s): Acute nondisplaced fracture is noted involving the necks of thir d and fourth metatarsals. . A comminuted mildly displaced fracture is noted involving the base of fif th proximal phalanx. Joint Alignment: Normal . Joint space(s): Normal . Soft tissues: Normal . Bone mineralization: Normal . Foreign bodies: None . Calcaneal spurring: None . IMPRESSION: Acute fractures involving distal ends of third and fourth metatarsals and base of fifth p roximal phalanx.. This document is electronically signed by Oswaldo Dowling MD., Jun 25 2018 10:37:28 PM ET
== END 2018-06-25 23:30 | disposition home or self-care (01) ==
LOC: ED 16:45
DX: S92.302A Fracture of unspecified metatarsal bone(s), left foot, initial encounter for closed fracture (principal); I10 Essential (primary) hypertension; E78.00 Pure hypercholesterolemia, unspecified; Z88.6 Allergy status to analgesic agent; W01.0XXA Fall on same level from slipping, tripping and stumbling without subsequent striking against object, initial encounter; Y93.89 Activity, other specified; Y92.830 Public park as the place of occurrence of the external cause; Y99.8 Other external cause status

== ENCOUNTER 2018-06-30 02:52 | Emergency (ER) | payer SELFPAY ==
[2018-06-30] MEDS ORDERED: ROBITUSSIN PO ONE (07:57)
[2018-06-30] MEDS ORDERED: DELTASONE PO ONE (07:57)
--- NOTE | 2018-06-30 08:10 | Emergency Department Report ---
ED ENT HPI - General Chief complaint: Sore Throat Stated complaint: THROAT PAIN Time Seen by Provider: 06/30/18 07:41 Source: patient Mode of arrival: Ambulatory Limitations: No Limitations - History of Present Illness Initial comments: [age]-year-old female who presents to ED complaining of sore throat and coughing for the past couple of days. Patient presents with a dry nonproductive cough. Patient also states that she isn't having pain with swallowing speaks food and liquids. Patient denies any difficulty swallowing or inability to swallow. she denies fever/chills/nausea vomiting abdominal pain MD complaint: sore throat - Related Data Home Medications Medication Instructions Recorded Confirmed Last Taken Gemfibrozil [Lopid] 1 tab PO BID 04/10/18 04/12/18 04/12/18 hydroCHLOROthiazide 25 mg PO DAILY 04/12/18 04/12/18 04/12/18 [Hydrochlorothiazide] Previous Rx's Medication Instructions Recorded Last Taken Type Folic Acid 1 tab PO DAILY #30 04/14/18 Unknown Rx Lisinopril [Zestril TAB] 40 mg PO QDAY tablet 04/14/18 Unknown Rx Baclofen [Lioresal] 10 mg PO Q8H PRN #21 tab 06/25/18 Unknown Rx HYDROcodone/ACETAMINOPHEN [[place] 1 each PO Q6H PRN #10 tablet 06/28/18 Unknown Rx 5-325 Tablet] Acetaminophen [Tylenol] 500 mg PO Q6HR #30 tablet 06/30/18 Unknown Rx Amoxicillin [Amoxicillin TAB] 875 mg PO BID #14 tablet 06/30/18 Unknown Rx Nystas/Diphen/Xyl Visc/Mylanta 30 ml MM Q4H PRN #120 ml 06/30/18 Unknown Rx [Magic Mouthwash] guaiFENesin [Robitussin] 200 mg PO TID #80 ml 06/30/18 Unknown Rx Allergies Allergy/AdvReac Type Severity Reaction Status Date / Time ibuprofen [From Motrin] Allergy Unknown Verified 06/25/18 16:49 ED Dental HPI - General Chief complaint: Sore Throat Stated complaint: THROAT PAIN Time Seen by Provider: 06/30/18 07:41 Source: patient Mode of arrival: Ambulatory Limitations: No Limitations - Related Data Home Medications Medication Instructions Recorded Confirmed Last Taken Gemfibrozil [Lopid] 1 tab PO BID 04/10/18 04/12/18 04/12/18 hydroCHLOROthiazide 25 mg PO DAILY 04/12/18 04/12/18 04/12/18 [Hydrochlorothiazide] Previous Rx's Medication Instructions Recorded Last Taken Type Folic Acid 1 tab PO DAILY #30 04/14/18 Unknown Rx Lisinopril [Zestril TAB] 40 mg PO QDAY tablet 04/14/18 Unknown Rx Baclofen [Lioresal] 10 mg PO Q8H PRN #21 tab 06/25/18 Unknown Rx HYDROcodone/ACETAMINOPHEN [[place] 1 each PO Q6H PRN #10 tablet 06/28/18 Unknown Rx 5-325 Tablet] Acetaminophen [Tylenol] 500 mg PO Q6HR #30 tablet 06/30/18 Unknown Rx Amoxicillin [Amoxicillin TAB] 875 mg PO BID #14 tablet 06/30/18 Unknown Rx Nystas/Diphen/Xyl Visc/Mylanta 30 ml MM Q4H PRN #120 ml 06/30/18 Unknown Rx [Magic Mouthwash] guaiFENesin [Robitussin] 200 mg PO TID #80 ml 06/30/18 Unknown Rx Allergies Allergy/AdvReac Type Severity Reaction Status Date / Time ibuprofen [From Motrin] Allergy Unknown Verified 06/25/18 16:49 ED Review of Systems ROS: Stated complaint: THROAT PAIN Other details as noted in HPI Comment: All other systems reviewed and negative ED Past Medical Hx - Past Medical History Previous Medical History?: Yes Hx Hypertension: Yes Hx Congestive Heart Failure: No Hx Diabetes: No Hx Asthma: No Hx COPD: No Additional medical history: high cholestrol - Surgical History Past Surgical History?: No - Social History Smoking Status: Never Smoker Substance Use Type: Alcohol - Medications Home Medications: Home Medications Medication Instructions Recorded Confirmed Last Taken Type Gemfibrozil [Lopid] 1 tab PO BID 04/10/18 04/12/18 04/12/18 History hydroCHLOROthiazide 25 mg PO DAILY 04/12/18 04/12/18 04/12/18 History [Hydrochlorothiazide] Folic Acid 1 tab PO DAILY #30 04/14/18 Unknown Rx Lisinopril [Zestril TAB] 40 mg PO QDAY tablet 04/14/18 Unknown Rx Baclofen [Lioresal] 10 mg PO Q8H PRN #21 tab 06/25/18 Unknown Rx HYDROcodone/ACETAMINOPHEN [[place] 1 each PO Q6H PRN #10 tablet 06/28/18 Unknown Rx 5-325 Tablet] Acetaminophen [Tylenol] 500 mg PO Q6HR #30 tablet 06/30/18 Unknown Rx Amoxicillin [Amoxicillin TAB] 875 mg PO BID #14 tablet 06/30/18 Unknown Rx Nystas/Diphen/Xyl Visc/Mylanta 30 ml MM Q4H PRN #120 ml 06/30/18 Unknown Rx [Magic Mouthwash] guaiFENesin [Robitussin] 200 mg PO TID #80 ml 06/30/18 Unknown Rx ED Physical Exam - General Limitations: No Limitations General appearance: alert, in no apparent distress - Head Head exam: Present: atraumatic, normocephalic - Eye Eye exam: Present: normal appearance - ENT ENT exam: Present: mucous membranes moist - Neck Neck exam: Present: normal inspection - Respiratory Respiratory exam: Present: normal lung sounds bilaterally. Absent: respiratory distress - Cardiovascular Cardiovascular Exam: Present: regular rate, normal rhythm. Absent: systolic murmur, diastolic murmur, rubs, gallop - GI/Abdominal GI/Abdominal exam: Present: soft, normal bowel sounds - Extremities Exam Extremities exam: Present: normal inspection - Back Exam Back exam: Present: normal inspection - Neurological Exam Neurological exam: Present: alert, oriented X3 - Psychiatric Psychiatric exam: Present: normal affect, normal mood - Skin Skin exam: Present: warm, dry, intact, normal color. Absent: rash ED Course Vital Signs 06/30/18 06/30/18 06/30/18 02:53 02:56 09:08 Temperature 98 F 98.0 F Pulse Rate 106 H 104 H 94 H Respiratory 18 18 20 Rate Blood Pressure 163/103 163/103 Blood Pressure 150/96 [Right] O2 Sat by Pulse 100 100 98 Oximetry ED Medical Decision Making - Medical Decision Making 57-year-old female presented upper respiratory infection. Vital signs are normal patient is in no acute distress. She is brought pressure was mildly elevated in the ED patient does have a chronic history of hypertension and takes medications. Patient states she has not taken her medication today which explains her elevated blood pressure. Patient is asymptomatic in the ED and will follow-up with her primary care doctor. Conversation to take her medication upon returning home. Patient understands this instructions and states she'll follow-up. Critical care attestation.: If time is entered above; I have spent that time in minutes in the direct care of this critically ill patient, excluding procedure time. ED Disposition Clinical Impression: Pharyngitis, Upper respiratory infection Disposition: - TO HOME OR SELFCARE Is pt being admited?: No Does the pt Need Aspirin: No Condition: Stable Instructions: Pharyngitis (ED), Upper Respiratory Infection (ED) Additional Instructions: Make sure to follow up with the primary care physician as discussed. Take all your medications as you've been prescribed. If you have any worsening symptoms or develop new symptoms please return to ED immediately. Prescriptions: Acetaminophen [Tylenol] 500 mg PO Q6HR #30 tablet Amoxicillin [Amoxicillin TAB] 875 mg PO BID #14 tablet Nystas/Diphen/Xyl Visc/Mylanta [Magic Mouthwash] 30 ml MM Q4H PRN #120 ml PRN Reason: Sore Throat guaiFENesin [Robitussin] 200 mg PO TID #80 ml Referrals: BUCKY MENDEZ MD [Primary Care Provider] - 3-5 Days Forms: Work/School Release Form(ED) Time of Disposition: 08:15
[2018-06-30 09:10] VITALS: BP 150/96
== END 2018-06-30 09:08 | disposition home or self-care (01) ==
LOC: ED 02:52
DX: J02.9 Acute pharyngitis, unspecified (principal); I10 Essential (primary) hypertension; E78.00 Pure hypercholesterolemia, unspecified; Z91.018 Allergy to other foods; Z88.6 Allergy status to analgesic agent
CPT/HCPCS: 99282; J7512

== ENCOUNTER 2018-06-30 22:20 | Emergency (ER) | payer OTHER ==
[2018-07-01] MEDS ORDERED: ULTRAM PO ONE (03:34)
--- NOTE | 2018-07-01 04:08 | Emergency Department Report ---
ED Lower Extremity HPI - General Chief Complaint: Extremity Injury, Lower Stated Complaint: LEFT FOOT PAIN Time Seen by Provider: 07/01/18 03:34 Source: patient Mode of arrival: Wheelchair Limitations: No Limitations - History of Present Illness Initial Comments: Ms. Duncan is a 57-year-old female who presents for left ankle pain, treated on 10 of June for foot fracture, posterior splint intact, patient is unable to see orthopedic surgery she has no funds, there has been no new fall injury or trauma, pt is ambulatory via crutches, pt pain is 4/10 aching constant, symptoms relieved by rest , symptoms exacerbated by prolong bearing and standing. MD Complaint: ankle injury (left side is) Onset/Timin -: week(s) Injury: Ankle: Right, Foot: Right Type of Injury: other (aching ) Place: home Severity: moderate Severity scale (0 -10): 5 Improves With: nothing Worsens With: nothing Context: fall, direct blow, running Associated Symptoms: swelling (the), ambulatory. denies: numbness, tingling - Related Data Home Medications Medication Instructions Recorded Confirmed Last Taken Gemfibrozil [Lopid] 1 tab PO BID 04/10/18 04/12/18 04/12/18 hydroCHLOROthiazide 25 mg PO DAILY 04/12/18 04/12/18 04/12/18 [Hydrochlorothiazide] Previous Rx's Medication Instructions Recorded Last Taken Type Folic Acid 1 tab PO DAILY #30 04/14/18 Unknown Rx Lisinopril [Zestril TAB] 40 mg PO QDAY tablet 04/14/18 Unknown Rx Baclofen [Lioresal] 10 mg PO Q8H PRN #21 tab 06/25/18 Unknown Rx HYDROcodone/ACETAMINOPHEN [[place] 1 each PO Q6H PRN #10 tablet 06/28/18 Unknown Rx 5-325 Tablet] Acetaminophen [Tylenol] 500 mg PO Q6HR #30 tablet 06/30/18 Unknown Rx Amoxicillin [Amoxicillin TAB] 875 mg PO BID #14 tablet 06/30/18 Unknown Rx Nystas/Diphen/Xyl Visc/Mylanta 30 ml MM Q4H PRN #120 ml 06/30/18 Unknown Rx [Magic Mouthwash] guaiFENesin [Robitussin] 200 mg PO TID #80 ml 06/30/18 Unknown Rx Acetaminophen [Acetaminophen TAB] 1,000 mg PO Q6HR #30 tablet 07/01/18 Unknown Rx Allergies Allergy/AdvReac Type Severity Reaction Status Date / Time coconut Allergy Swelling Verified 06/30/18 22:29 ibuprofen [From Motrin] Allergy Unknown Verified 06/25/18 16:49 ED Review of Systems ROS: Stated complaint: LEFT FOOT PAIN Other details as noted in HPI Constitutional: denies: chills, fever Eyes: denies: eye pain, eye discharge, vision change ENT: denies: ear pain, throat pain Respiratory: denies: cough, shortness of breath, wheezing Cardiovascular: denies: chest pain, palpitations Endocrine: no symptoms reported Gastrointestinal: denies: abdominal pain, nausea, diarrhea Genitourinary: denies: urgency, dysuria, discharge Musculoskeletal: arthralgia, myalgia, other (left foot akle pain ) Skin: denies: rash, lesions Neurological: denies: headache, weakness, numbness, paresthesias, confusion, vertigo Psychiatric: denies: as per HPI, anxiety, depression ED Past Medical Hx - Past Medical History Previous Medical History?: Yes Hx Hypertension: Yes Hx Congestive Heart Failure: No Hx Diabetes: No Hx Asthma: No Hx COPD: No Additional medical history: high cholestrol. anemia - Surgical History Past Surgical History?: No - Social History Smoking Status: Never Smoker Substance Use Type: None - Medications Home Medications: Home Medications Medication Instructions Recorded Confirmed Last Taken Type Gemfibrozil [Lopid] 1 tab PO BID 04/10/18 04/12/18 04/12/18 History hydroCHLOROthiazide 25 mg PO DAILY 04/12/18 04/12/18 04/12/18 History [Hydrochlorothiazide] Folic Acid 1 tab PO DAILY #30 04/14/18 Unknown Rx Lisinopril [Zestril TAB] 40 mg PO QDAY tablet 04/14/18 Unknown Rx Baclofen [Lioresal] 10 mg PO Q8H PRN #21 tab 06/25/18 Unknown Rx HYDROcodone/ACETAMINOPHEN [[place] 1 each PO Q6H PRN #10 tablet 06/28/18 Unknown Rx 5-325 Tablet] Acetaminophen [Tylenol] 500 mg PO Q6HR #30 tablet 06/30/18 Unknown Rx Amoxicillin [Amoxicillin TAB] 875 mg PO BID #14 tablet 06/30/18 Unknown Rx Nystas/Diphen/Xyl Visc/Mylanta 30 ml MM Q4H PRN #120 ml 06/30/18 Unknown Rx [Magic Mouthwash] guaiFENesin [Robitussin] 200 mg PO TID #80 ml 06/30/18 Unknown Rx Acetaminophen [Acetaminophen TAB] 1,000 mg PO Q6HR #30 tablet 07/01/18 Unknown Rx ED Physical Exam - General Limitations: No Limitations General appearance: alert, in no apparent distress - Head Head exam: Present: atraumatic, normocephalic - Eye Eye exam: Present: normal appearance, PERRL, EOMI Pupils: Present: normal accommodation - ENT ENT exam: Present: mucous membranes moist - Neck Neck exam: Present: normal inspection, full ROM. Absent: tenderness - Respiratory Respiratory exam: Present: normal lung sounds bilaterally, chest wall tenderness. Absent: respiratory distress, wheezes, stridor - Cardiovascular Cardiovascular Exam: Present: regular rate, normal rhythm, normal heart sounds. Absent: systolic murmur, diastolic murmur, rubs, gallop - GI/Abdominal GI/Abdominal exam: Present: soft, normal bowel sounds. Absent: distended, tenderness, bruit, hernia - Rectal Rectal exam: Present: deferred - Extremities Exam Extremities exam: Present: normal inspection, full ROM, tenderness (left dorsal foot tenderenss no deformity no ecchymosis no rom restricted by pain distal pulses intact access spec < 3 sec bilat ), normal capillary refill, joint swelling. Absent: pedal edema, calf tenderness - Expanded Lower Extremity Exam Left Foot/Toe exam: Present: full ROM, tenderness, swelling. Absent: abrasion, laceration, ecchymosis, deformity, crepidus, dislocation, erythema, amputation, puncture wound, calcaneal tenderness, tenderness at base of 5th metatarsal, nail avulsion, subungual hematoma Neuro vascular tendon exam: Absent: pulse deficit, motor deficit, sensory deficit, tendon deficit Gait: Positive: observed and limited by pain - Back Exam Back exam: Present: normal inspection, full ROM. Absent: tenderness, CVA tenderness (R), CVA tenderness (L), muscle spasm, paraspinal tenderness, vertebral tenderness, rash noted - Neurological Exam Neurological exam: Present: alert, oriented X3, CN II-XII intact, reflexes normal. Absent: motor sensory deficit - Psychiatric Psychiatric exam: Present: normal affect, normal mood - Skin Skin exam: Present: warm, dry, intact, normal color. Absent: rash ED Course Vital Signs 06/30/18 06/30/18 07/01/18 22:27 22:30 04:02 Temperature 97.9 F 97.9 F Pulse Rate 109 H 111 H Respiratory 18 18 15 Rate Blood Pressure 189/104 189/104 O2 Sat by Pulse 99 100 Oximetry ED Lower Extremity MDM - Medical Decision Making pt will follow up with ortho as directed , use crutches as directed, return to ed if symptoms worsen. splint check completed , spacing is appropriate via two finger insertion, distal pulses intact. pain is reduced to 2/10 at this time pt for dc to home. Critical care attestation.: If time is entered above; I have spent that time in minutes in the direct care of this critically ill patient, excluding procedure time. ED Disposition Clinical Impression: Foot pain, left Disposition: DC-01 TO HOME OR SELFCARE Is pt being admited?: No Does the pt Need Aspirin: No Condition: Stable Prescriptions: Acetaminophen [Acetaminophen TAB] 1,000 mg PO Q6HR #30 tablet Referrals: LOGAN GUSTAFSON MD [Staff Physician] - 3-5 Days [facility] [Outside] - 3-5 Days Forms: Work/School Release Form(ED) Time of Disposition: 04:47
[2018-07-01 05:44] VITALS: BP 159/92
== END 2018-07-01 05:05 | disposition home or self-care (01) ==
LOC: ED 22:20
DX: M25.572 Pain in left ankle and joints of left foot (principal); I10 Essential (primary) hypertension; E78.00 Pure hypercholesterolemia, unspecified; D64.9 Anemia, unspecified; Z91.018 Allergy to other foods; Z88.6 Allergy status to analgesic agent

== ENCOUNTER 2018-07-02 18:36 | Emergency (ER) | payer SELFPAY ==
[2018-07-02 18:39] VITALS: BP 113/75
--- NOTE | 2018-07-02 18:40 | Emergency Department Report ---
Blank Doc - Documentation Documentation: This is a 57-year-old female that presents with left ankle pain. Patient has history of fracture with splint placed. Denies f/u with orthopedic. This initial assessment/diagnostic orders/clinical plan/treatment(s) is/are subject to change based on patient's health status, clinical progression and re- assessment by fellow clinical providers in the ED. Further treatment and workup at subsequent clinical providers discretion. Patient/guardians urged not to elope from the ED as their condition may be serious if not clinically assessed and managed. Initial orders include: 1- Patient sent to [facility] for further evaluation and treatment
--- NOTE | 2018-07-02 22:37 | Emergency Department Report ---
ED General Adult HPI - General Chief complaint: Extremity Injury, Lower Stated complaint: L FOOT PAIN Time Seen by Provider: 07/02/18 18:38 Source: patient Mode of arrival: Ambulatory Limitations: No Limitations - History of Present Illness -: Gradual Location: lower extremity Radiation: non-radiation Quality: dull Consistency: constant Improves with: none Worsens with: none Associated Symptoms: denies: confusion, chest pain, cough, diaphoresis, fever/chills, headaches, loss of appetite, malaise, nausea/vomiting, rash, shortness of breath, syncope, weakness Treatments Prior to Arrival: none - Related Data Home Medications Medication Instructions Recorded Confirmed Last Taken Gemfibrozil [Lopid] 1 tab PO BID 04/10/18 04/12/18 04/12/18 hydroCHLOROthiazide 25 mg PO DAILY 04/12/18 04/12/18 04/12/18 [Hydrochlorothiazide] Previous Rx's Medication Instructions Recorded Last Taken Type Folic Acid 1 tab PO DAILY #30 04/14/18 Unknown Rx Lisinopril [Zestril TAB] 40 mg PO QDAY tablet 04/14/18 Unknown Rx Baclofen [Lioresal] 10 mg PO Q8H PRN #21 tab 06/25/18 Unknown Rx HYDROcodone/ACETAMINOPHEN [[place] 1 each PO Q6H PRN #10 tablet 06/28/18 Unknown Rx 5-325 Tablet] Acetaminophen [Tylenol] 500 mg PO Q6HR #30 tablet 06/30/18 Unknown Rx Amoxicillin [Amoxicillin TAB] 875 mg PO BID #14 tablet 06/30/18 Unknown Rx Nystas/Diphen/Xyl Visc/Mylanta 30 ml MM Q4H PRN #120 ml 06/30/18 Unknown Rx [Magic Mouthwash] guaiFENesin [Robitussin] 200 mg PO TID #80 ml 06/30/18 Unknown Rx Acetaminophen [Acetaminophen TAB] 1,000 mg PO Q6HR #30 tablet 07/01/18 Unknown Rx Allergies Allergy/AdvReac Type Severity Reaction Status Date / Time coconut Allergy Swelling Verified 06/30/18 22:29 ibuprofen [From Motrin] Allergy Unknown Verified 06/25/18 16:49 ED Review of Systems ROS: Stated complaint: L FOOT PAIN Other details as noted in HPI Constitutional: denies: chills, fever Eyes: denies: eye pain, eye discharge, vision change ENT: denies: ear pain, throat pain Respiratory: denies: cough, shortness of breath, wheezing Cardiovascular: denies: chest pain, palpitations Endocrine: no symptoms reported Gastrointestinal: denies: abdominal pain, nausea, diarrhea Genitourinary: denies: urgency, dysuria, discharge Musculoskeletal: arthralgia. denies: back pain, joint swelling Skin: denies: rash, lesions Neurological: denies: headache, weakness, paresthesias Psychiatric: denies: anxiety, depression Hematological/Lymphatic: denies: easy bleeding, easy bruising ED Past Medical Hx - Past Medical History Previous Medical History?: Yes Hx Hypertension: Yes Hx Congestive Heart Failure: No Hx Diabetes: No Hx Asthma: No Hx COPD: No Additional medical history: high cholestrol. anemia - Social History Smoking Status: Never Smoker Substance Use Type: None - Medications Home Medications: Home Medications Medication Instructions Recorded Confirmed Last Taken Type Gemfibrozil [Lopid] 1 tab PO BID 04/10/18 04/12/18 04/12/18 History hydroCHLOROthiazide 25 mg PO DAILY 04/12/18 04/12/18 04/12/18 History [Hydrochlorothiazide] Folic Acid 1 tab PO DAILY #30 04/14/18 Unknown Rx Lisinopril [Zestril TAB] 40 mg PO QDAY tablet 04/14/18 Unknown Rx Baclofen [Lioresal] 10 mg PO Q8H PRN #21 tab 06/25/18 Unknown Rx HYDROcodone/ACETAMINOPHEN [[place] 1 each PO Q6H PRN #10 tablet 06/28/18 Unknown Rx 5-325 Tablet] Acetaminophen [Tylenol] 500 mg PO Q6HR #30 tablet 06/30/18 Unknown Rx Amoxicillin [Amoxicillin TAB] 875 mg PO BID #14 tablet 06/30/18 Unknown Rx Nystas/Diphen/Xyl Visc/Mylanta 30 ml MM Q4H PRN #120 ml 06/30/18 Unknown Rx [Magic Mouthwash] guaiFENesin [Robitussin] 200 mg PO TID #80 ml 06/30/18 Unknown Rx Acetaminophen [Acetaminophen TAB] 1,000 mg PO Q6HR #30 tablet 07/01/18 Unknown Rx ED Physical Exam - General Limitations: No Limitations General appearance: alert, in no apparent distress - Head Head exam: Present: atraumatic, normocephalic - Eye Eye exam: Present: normal appearance - ENT ENT exam: Present: mucous membranes moist - Neck Neck exam: Present: normal inspection - Respiratory Respiratory exam: Present: normal lung sounds bilaterally. Absent: respiratory distress - Cardiovascular Cardiovascular Exam: Present: regular rate, normal rhythm. Absent: systolic murmur, diastolic murmur, rubs, gallop - GI/Abdominal GI/Abdominal exam: Present: soft, normal bowel sounds - Extremities Exam Extremities exam: Present: normal inspection, other (splint in place of the left ankle. Capillary refills are brisk, warm, no pallor, no tenting. No cyanosis noted. Splint was on the posterior fashion to the left ankle.) - Back Exam Back exam: Present: normal inspection - Neurological Exam Neurological exam: Present: alert, oriented X3 - Psychiatric Psychiatric exam: Present: normal affect, normal mood - Skin Skin exam: Present: warm, dry, intact, normal color. Absent: rash ED Course Vital Signs 07/02/18 18:38 Temperature 97.5 F L Pulse Rate 102 H Respiratory 20 Rate Blood Pressure 113/75 O2 Sat by Pulse 100 Oximetry ED Medical Decision Making - Medical Decision Making Assessment complaining about a filling on the left ankle. Plan is to remove the splint if she is also been walking on this plan and it has lost some of its support. We'll placed a new a new posterior short-leg splint on to that region. Discussed with her diabetes she'll need to follow-up with orthopedic doctor for definitive management. Critical care attestation.: If time is entered above; I have spent that time in minutes in the direct care of this critically ill patient, excluding procedure time. ED Disposition Clinical Impression: Ankle fracture, Chronic ankle pain, Non-compliance with treatment Disposition: DC-01 TO HOME OR SELFCARE Is pt being admited?: No Does the pt Need Aspirin: No Condition: Stable Instructions: Ankle Fracture (ED), Crutch Instructions (ED), Splint Care (ED) Additional Instructions: With orthopedic or [facility] for definitive management of your ankle fracture. Please, do not attempt to walk on the splint. Splint is not to be utilized for prolonged immobilization. He needed to be evaluated for a cast only walking boot with orthopedic as we discussed in great detail today Referrals: [facility] [Provider Group] - 3-5 Days [facility] [Provider Group] - 3-5 Days LOGAN GUSTAFSON MD [Staff Physician] - 3-5 Days MANSFIELD BUCKY LO MD [Primary Care Provider] - 3-5 Days
== END 2018-07-02 23:10 | disposition home or self-care (01) ==
LOC: ED 18:36
DX: S82.892A Other fracture of left lower leg, initial encounter for closed fracture (principal); G89.29 Other chronic pain; I10 Essential (primary) hypertension; E78.00 Pure hypercholesterolemia, unspecified; D64.9 Anemia, unspecified; Z91.19 Patient's noncompliance with other medical treatment and regimen; Z91.018 Allergy to other foods; Z88.6 Allergy status to analgesic agent; X58.XXXA Exposure to other specified factors, initial encounter; Y93.89 Activity, other specified; Y92.89 Other specified places as the place of occurrence of the external cause; Y99.8 Other external cause status

== ENCOUNTER 2018-07-03 17:45 | Inpatient (IN) | payer SELFPAY ==
--- NOTE | 2018-07-03 18:07 | Emergency Department Report ---
Chief Complaint: Chest Pain Stated Complaint: HEAD/CHEST/NECK PAIN Time Seen by Provider: 07/03/18 18:06 - HPI History of Present Illness: cp while walking daily now headache and neck pain pmh htn hpld no mi/ no mi psh none pcp none etoh no cig/ drugs vss mom dec ca dad dec ckd mse completed - Exam Vital Signs: Vital Signs 07/03/18 17:56 Temperature 97.9 F Pulse Rate 109 H Respiratory 20 Rate Blood Pressure 100/66 O2 Sat by Pulse 99 Oximetry MSE screening note: Focused history and physical exam performed. Due to findings the following was ordered: ED Disposition for MSE Condition: Stable
[2018-07-03 18:49] LABS: Basophils # (Auto) 0.1 K/mm3 (0.0-0.1); Eosinophils # (Auto) 0.1 K/mm3 (0.0-0.4); Eosinophils % (Auto) 1.5 % (0.0-4.3); Hematocrit 34.4 % (30.3-42.9); Hemoglobin 11.8 gm/dl (10.1-14.3); Lymphocytes # (Auto) 1.7 K/mm3 (1.2-5.4); Mean Corpuscular HGB Conc 34 % (30-34); Mean Corpuscular Volume 98 fl (79-97); Monocytes # (Auto) 0.5 K/mm3 (0.0-0.8); Monocytes % (Auto) 6.5 % (0.0-7.3); Platelet Count 241 K/mm3 (140-440); Red Blood Count 3.51 M/mm3 (3.65-5.03); Red Cell Distribution Width 13.6 % (13.2-15.2)
[2018-07-03 19:06] LABS: Alanine Aminotransferase 11 units/L (7-56); Albumin 3.9 g/dL (3.9-5); BUN/Creatinine Ratio 18; Blood Urea Nitrogen 21 mg/dL (7-17); Calcium 9.6 mg/dL (8.4-10.2); Hemolysis Index 10
[2018-07-03] MEDS ORDERED: MORPHINE IV ONE (19:22)
[2018-07-03] MEDS ORDERED: ASPIRIN PO ONE (19:22)
[2018-07-03] MEDS ORDERED: NACL 0.9% 1000 ML 1,000 ML IV ONE (19:23)
--- NOTE | 2018-07-03 19:24 | Emergency Department Report ---
ED Chest Pain HPI - General Chief Complaint: Chest Pain Stated Complaint: HEAD/CHEST/NECK PAIN Time Seen by Provider: 07/03/18 18:06 Source: patient Mode of arrival: Ambulatory Limitations: No Limitations - History of Present Illness Initial Comments: Patient is a 57-year-old female that presents emergency room with complaints of chest pain. Patient states her chest pain started at 3:30 PM. Patient states her chest pain is in the center of her chest and radiates to her left neck and head. Patient states the chest pain as a 9 out of 10. Patient states the chest pain is worsening. Patient states the pain is better with rest and worse with exertion. Patient states she had shortness of breath initially but it has resolved. She denies fever chills. Patient denies diaphoresis. Patient takes a daily aspirin. MD Complaint: chest pain -: Sudden Onset: during rest Pain Location: substernal, left chest Pain Radiation: neck Severity: severe Severity scale (0 -10): 9 Quality: sharp Consistency: constant Improves With: rest Worsens With: exertion re: dyspnea. denies: nausea, vomting, diaphoresis, sense of impending doom Other Symptoms: denies: cough, fever, syncope, rash, acid taste in mouth, leg swelling, palpitations, burping Treatments Prior to Arrival: none Aspirin use within the Past 7 Days: (1) Yes - Related Data On Oral Contraceptives: No Home Medications Medication Instructions Recorded Confirmed Last Taken Gemfibrozil [Lopid] 1 tab PO BID 04/10/18 04/12/18 04/12/18 hydroCHLOROthiazide 25 mg PO DAILY 04/12/18 04/12/18 04/12/18 [Hydrochlorothiazide] Previous Rx's Medication Instructions Recorded Last Taken Type Folic Acid 1 tab PO DAILY #30 04/14/18 Unknown Rx Lisinopril [Zestril TAB] 40 mg PO QDAY tablet 04/14/18 Unknown Rx Baclofen [Lioresal] 10 mg PO Q8H PRN #21 tab 06/25/18 Unknown Rx HYDROcodone/ACETAMINOPHEN [[place] 1 each PO Q6H PRN #10 tablet 06/28/18 Unknown Rx 5-325 Tablet] Acetaminophen [Tylenol] 500 mg PO Q6HR #30 tablet 06/30/18 Unknown Rx Amoxicillin [Amoxicillin TAB] 875 mg PO BID #14 tablet 06/30/18 Unknown Rx Nystas/Diphen/Xyl Visc/Mylanta 30 ml MM Q4H PRN #120 ml 06/30/18 Unknown Rx [Magic Mouthwash] guaiFENesin [Robitussin] 200 mg PO TID #80 ml 06/30/18 Unknown Rx Acetaminophen [Acetaminophen TAB] 1,000 mg PO Q6HR #30 tablet 07/01/18 Unknown Rx Allergies Allergy/AdvReac Type Severity Reaction Status Date / Time coconut Allergy Swelling Verified 07/03/18 17:50 ibuprofen [From Motrin] Allergy Unknown Verified 07/03/18 19:40 Heart Score - HEART Score History: Slightly suspicious EKG: Normal Age: 45-65 Risk factors: No known risk factors Troponin: < normal limit HEART Score: 1 ED Review of Systems ROS: Stated complaint: HEAD/CHEST/NECK PAIN Other details as noted in HPI Constitutional: denies: chills, fever Eyes: denies: eye pain, eye discharge, vision change ENT: denies: ear pain, throat pain Respiratory: shortness of breath. denies: cough, wheezing Cardiovascular: chest pain. denies: palpitations Endocrine: no symptoms reported Gastrointestinal: denies: abdominal pain, nausea, diarrhea Genitourinary: denies: urgency, dysuria, discharge Musculoskeletal: denies: back pain, joint swelling, arthralgia Skin: denies: rash, lesions Neurological: denies: headache, weakness, paresthesias Psychiatric: denies: anxiety, depression Hematological/Lymphatic: denies: easy bleeding, easy bruising ED Past Medical Hx - Past Medical History Previous Medical History?: Yes Hx Hypertension: Yes Hx Congestive Heart Failure: No Hx Diabetes: No Hx Asthma: No Hx COPD: No Additional medical history: high cholestrol. anemia - Surgical History Past Surgical History?: No - Family History Family history: hypertension - Social History Smoking Status: Never Smoker Substance Use Type: None - Medications Home Medications: Home Medications Medication Instructions Recorded Confirmed Last Taken Type Gemfibrozil [Lopid] 1 tab PO BID 04/10/18 04/12/18 04/12/18 History hydroCHLOROthiazide 25 mg PO DAILY 04/12/18 04/12/18 04/12/18 History [Hydrochlorothiazide] Folic Acid 1 tab PO DAILY #30 04/14/18 Unknown Rx Lisinopril [Zestril TAB] 40 mg PO QDAY tablet 04/14/18 Unknown Rx Baclofen [Lioresal] 10 mg PO Q8H PRN #21 tab 06/25/18 Unknown Rx HYDROcodone/ACETAMINOPHEN [[place] 1 each PO Q6H PRN #10 tablet 06/28/18 Unknown Rx 5-325 Tablet] Acetaminophen [Tylenol] 500 mg PO Q6HR #30 tablet 06/30/18 Unknown Rx Amoxicillin [Amoxicillin TAB] 875 mg PO BID #14 tablet 06/30/18 Unknown Rx Nystas/Diphen/Xyl Visc/Mylanta 30 ml MM Q4H PRN #120 ml 06/30/18 Unknown Rx [Magic Mouthwash] guaiFENesin [Robitussin] 200 mg PO TID #80 ml 06/30/18 Unknown Rx Acetaminophen [Acetaminophen TAB] 1,000 mg PO Q6HR #30 tablet 07/01/18 Unknown Rx ED Physical Exam - General Limitations: No Limitations General appearance: alert, in no apparent distress - Head Head exam: Present: atraumatic, normocephalic - Eye Eye exam: Present: normal appearance - ENT ENT exam: Present: mucous membranes moist - Neck Neck exam: Present: normal inspection - Respiratory Respiratory exam: Present: normal lung sounds bilaterally. Absent: respiratory distress, chest wall tenderness - Cardiovascular Cardiovascular Exam: Present: regular rate, normal rhythm. Absent: systolic murmur, diastolic murmur, rubs, gallop - GI/Abdominal GI/Abdominal exam: Present: soft, normal bowel sounds - Extremities Exam Extremities exam: Present: normal inspection - Back Exam Back exam: Present: normal inspection - Neurological Exam Neurological exam: Present: alert, oriented X3 - Psychiatric Psychiatric exam: Present: normal affect, normal mood - Skin Skin exam: Present: warm, dry, intact, normal color. Absent: rash ED Course Vital Signs 07/03/18 07/03/18 07/03/18 17:56 19:20 19:23 Temperature 97.9 F Pulse Rate 109 H 90 98 H Respiratory 20 19 Rate Respiratory Rate [Chest] Blood Pressure 100/66 Blood Pressure 103/66 [Left] O2 Sat by Pulse 99 96 Oximetry 07/03/18 07/03/18 07/04/18 19:38 20:13 00:01 Temperature 98.0 F Pulse Rate 98 H 90 Respiratory 19 21 18 Rate Respiratory Rate [Chest] Blood Pressure 144/120 Blood Pressure 126/79 [Left] O2 Sat by Pulse 96 98 100 Oximetry 07/04/18 07/04/18 07/04/18 00:03 00:18 00:22 Temperature 98 F Pulse Rate 68 Respiratory 20 Rate Respiratory 18 Rate [Chest] Blood Pressure Blood Pressure 144/89 [Left] O2 Sat by Pulse Oximetry - Reevaluation(s) Reevaluation #1: Discussed all results with patient. Patient still having chest pain. Patient was given aspirin and morphine. Patient will be admitted to the hospitalist service. Patient agrees to plan of care. 07/03/18 19:24 \ 07/03/18 21:28 - Consultations Consultation #1: Hospitalist consultation for admission. Hospitalist to admit patient. Hospitalist to assume care patient. 07/03/18 21:41 QUANG score - Quang Score Age > 65: (0) No Aspirin use within the Past 7 Days: (1) Yes 3 or more CAD Risk Factors: (0) No 2 or more Angina events in past 24 hrs: (0) No Known CAD with more than 50% Stenosis: (0) No Elevated Cardiac Markers: (0) No ST Deviation Greater than 0.5mm: (0) No QUANG Score: 1 ED Medical Decision Making - Lab Data Result diagrams: 07/03/18 18:34 07/03/18 18:34 - EKG Data -: EKG Interpreted by Me EKG shows normal: sinus rhythm, axis, intervals, ST-T waves Rate: normal - EKG Data When compared to previous EKG there are: no significant change Interpretation: no acute changes, other (RBBB) - Radiology Data Radiology results: report reviewed, image reviewed interpreted by me: Chest x-ray negative - Medical Decision Making Patient is 57-year-old female that presents emergency room with complaints of chest pain radiating to her neck and head. Patient will be admitted to the hospitalist service. Patient will need ACS rule out. Patient had a CTA of the chest and neck due to her presentation. Patient(CT positive for multiple suspicious nodules and lymphadenopathy. Discussed all results with patient. Patient agrees with plan of care and admission. Patient's cardiac workup is negative. Patient will need further evaluation for her chest pain and pulmonary nodules. Patient found to have relative hypotension and patient was given fluids. Patient's blood pressure improved. - Differential Diagnosis chest pain. ACS. Shortness of breath. Critical Care Time: Yes Critical care attestation.: If time is entered above; I have spent that time in minutes in the direct care of this critically ill patient, excluding procedure time. Critical Care Time: 35 minutes ED Disposition Clinical Impression: SOB (shortness of breath), Pulmonary nodule HTN (hypertension) Qualifiers: Hypertension type: essential hypertension Qualified Code(s): I10 - Essential (primary) hypertension Chest pain Qualifiers: Chest pain type: unspecified Qualified Code(s): R07.9 - Chest pain, unspecified Hypotension Qualifiers: Hypotension type: unspecified hypotension type Qualified Code(s): I95.9 - Hypotension, unspecified Disposition: DC-09 OP ADMIT IP TO THIS HOSP Is pt being admited?: Yes Does the pt Need Aspirin: No Condition: Critical Time of Disposition: 21:47
--- NOTE | 2018-07-03 19:51 | XRay Report ---
PROCEDURE: Chest. TECHNIQUE: PA and lateral chest radiographs were obtained. HISTORY: Chest pain. COMPARISONS: Chest 04/12/2018. Dictation not available. FINDINGS: The heart and mediastinum appear normal. The lungs are clear and well expanded. There is faint calcif ication in the aortic arch. There are no pleural effusions. The soft tissues and regional skeleton ar e unremarkable. IMPRESSION: No evidence of acute disease. This document is electronically signed by Claudy Chew MD., Jul 03 2018 07:49:00 PM ET
[2018-07-03 20:21] LABS: Bacteria,Urine 1+ /HPF (Negative); Bilirubin,Urine NEG (Negative); Blood,Urine NEG (Negative); Color,Urine Straw (Yellow); Protein,Urine <15 mg/dL mg/dL (Negative); Urobilinogen,Urine < 2.0 mg/dL (<2.0)
--- NOTE | 2018-07-03 20:56 | Cat Scan Report ---
PROCEDURE: CT ANGIO NECK TECHNIQUE: Computerized tomographic angiography of the neck was performed after the IV injection of iodinated nonionic contrast including image processing. The image data was postprocessed using 2-dime nsional multiplanar reformatted (MPR) and 3-dimensional (MIP and/or volume rendered) techniques. CT DOSE LENGTH PRODUCT: 533.6 mGycm HISTORY: sob. cp radiating to neck COMPARISONS: None . Note: Assessment of carotid artery stenosis is based on measurement of the distal internal carotid a rtery diameter as the denominator for stenosis calculations and the [place] Symptomatic Caroti d Endarterectomy Trial (NASCET) stenosis criteria. FINDINGS: Sinuses: Normal . Non vascular cervical structures: No significant abnormality . Aortic arch: Normal . Right carotid artery: Normal . Left carotid artery: Normal . Vertebral arteries: There is a dominant left vertebral artery. The right vertebral artery is diminut patti throughout its course, likely a developmental finding . Mediastinal adenopathy is noted. IMPRESSION: No arterial occlusion or stenosis. Dominant left vertebral artery. This document is electronically signed by Jayne Crow MD., Jul 03 2018 08:54:24 PM ET
--- NOTE | 2018-07-03 21:14 | Cat Scan Report ---
PROCEDURE: CT ANGIO CHEST TECHNIQUE: Computerized tomographic angiography of the chest was performed after the IV injection of iodinated nonionic contrast including image processing. The image data was postprocessed using 2-di mensional multiplanar reformatted (MPR) and 3-dimensional (MIP and/or volume rendered) techniques. Au tomated exposure control, adjustment of mA and/or kV according to patient size, or iterative reconstr uction dose optimization techniques were utilized. CT DOSE LENGTH PRODUCT: 313 mGycm HISTORY: sob. cp radiating to neck COMPARISONS: None . FINDINGS: Heart and pericardium: No pericardial effusion or thickening. Thoracic aorta: No aneurysm or dissection. Pulmonary vasculature: Normal. Lymph nodes: Extensive bilateral mediastinal and hilar adenopathy. Hilar nodes measure up to 12 mm s hort axis. There are bilateral enlarged paratracheal lymph nodes, measuring up to 1 cm short axis. Ao rticopulmonary and subcarinal enlarged nodes are also present Lungs: There are numerous bilateral pulmonary nodules, mostly throughout the right lung, measuring u p to 4 mm. Pleural space: No effusion, thickening, or pneumothorax. Musculoskeletal structures: No significant abnormality. Upper abdominal structures: No significant abnormality. IMPRESSION: Extensive bilateral mediastinal and hilar adenopathy and numerous bilateral pulmonary nodules, concer mary for metastatic/malignant process . This document is electronically signed by Jayne Crow MD., Jul 03 2018 09:11:11 PM ET
--- NOTE | 2018-07-03 21:55 | History and Physical Report ---
History of Present Illness Date of examination: 07/03/18 History of present illness: 57-year-old woman with a history of hypertension comes emergency room with complaints of chest pain located in the left substernal area described as sharp, intermittent for 5 minutes, intensity 5/10, no radiation, cannot identify exacer bating or relieving factors. Admits to shortness breath, palpitation, no nausea vomiting, diaphoresis. Has a left tibial fracture, sedentary lifestyle Review of systems Constitutional: no weight loss, chills, fever Ears, eyes, nose, mouth and throat: no nasal congestion, no nasal discharge, no sinus pressure, no vision change, no red eye. Neck: No neck pain or rigidity. Cardiovascular: + palpitations, chest pain Respiratory: no cough, +shortness of breath Gastrointestinal: no hematochezia, abdominal pain Genitourinary : no frequency , no hematuria Musculoskeletal: no joint swelling or muscle ache Integumentary: no rash, no pruritis Neurological: no parathesias, no focal weakness Endocrine: no cold or heat intolerance, no polyuria or polydipsia Hematologic/Lymphatic: no easy bruising, no easy bleeding, no gland swelling Allergic/Immunologic: no urticaria, no angioedema. PAST MEDICAL HISTORY:hypertension PAST SURGICAL HISTORY: None SOCIAL HISTORY: + alcohol, Denies drugs, tobacco FAMILY HISTORY: Hypertension Medications and Allergies Allergies Allergy/AdvReac Type Severity Reaction Status Date / Time coconut Allergy Swelling Verified 07/03/18 17:50 ibuprofen [From Motrin] Allergy Unknown Verified 07/03/18 19:40 Home Medications Medication Instructions Recorded Confirmed Last Taken Type Acetaminophen [Acetaminophen TAB] 325 mg PO Q4H PRN #15 tablet 07/10/18 Unknown Rx Aspirin [Adult Aspirin] 81 mg PO DAILY #30 07/10/18 07/04/18 Unknown Rx Folic Acid [Folvite] 1 mg PO QDAY #30 07/10/18 07/04/18 Unknown Rx Lisinopril [Zestril TAB] 20 mg PO QDAY #30 tablet 07/10/18 Unknown Rx Exam - Physical Exam Narrative exam: General Apperance: The patient lying in bed, breathing comfortable HEENT: Normocephalic, atraumatic. Pupils equally round and reactive to light, EOMI, no sclericterus or JVD or thyromegaly or nodule. , no carotid bruit, muc ous membranes moist, no exudate or erythema Heart: S1-S2, regular is rhythm Lungs: Clear to auscultation bilaterally, breathing comfortable Abdomen: Positive bowel sounds, soft, nontender, nondistended, no organomegaly Extremities: No edema cyanosis clubbing Skin: no rash, nodule, warm and dry Neuro: cranial nerves 2-12 intact, speech is fluent, motor/sensory intact - Constitutional Vitals: Temp Pulse Resp BP Pulse Ox 97.9 F 98 H 21 126/79 98 07/03/18 17:56 07/03/18 20:13 07/03/18 20:13 07/03/18 20:13 07/03/18 20:13 Results - Labs CBC & Chem 7: 07/09/18 06:25 07/09/18 06:25 Labs: Abnormal lab results 07/03/18 07/03/18 Range/Units 18:34 18:34 RBC 3.51 L (3.65-5.03) M/mm3 MCV 98 H (79-97) fl MCH 34 H (28-32) pg Sodium 133 L (137-145) mmol/L Potassium 3.3 L (3.6-5.0) mmol/L Chloride 89.9 L (98-107) mmol/L BUN 21 H (7-17) mg/dL Glucose 124 H (65-100) mg/dL - Imaging and Cardiology EKG: image reviewed Chest x-ray: image reviewed Assessment and Plan Assessment Lung nodules concerning for malignancy Chest pain mostly secondary to the above Hypertension Plan Admit to medicine Consult oncology, check cardiac enzymes Continue appropiate outpatient medications IV morphine, DVT prophylaxis
[2018-07-03] MEDS ORDERED: ZOFRAN IV PRN (21:57)
[2018-07-03] MEDS ORDERED: SODIUM CHLORIDE FLUSH SYRINGE 10 ML IV PRN (21:57)
[2018-07-03] MEDS ORDERED: TYLENOL PO PRN (21:57)
[2018-07-04] MEDS: SODIUM CHLORIDE FLUSH SYRINGE 10 ML IV SCH ×3 (01:20→21:24)
[2018-07-04] MEDS: NACL 0.9% 1000 ML 1,000 ML IV SCH (04:55)
[2018-07-04 05:59] LABS: Basophils # (Auto) 0.1 K/mm3 (0.0-0.1); Eosinophils # (Auto) 0.2 K/mm3 (0.0-0.4); Eosinophils % (Auto) 2.7 % (0.0-4.3); Hematocrit 33.1 % (30.3-42.9); Hemoglobin 11.7 gm/dl (10.1-14.3); Lymphocytes # (Auto) 1.2 K/mm3 (1.2-5.4); Lymphocytes % (Auto) 17.4 % (13.4-35.0); Mean Corpuscular HGB Conc 35 % (30-34); Mean Corpuscular Volume 97 fl (79-97); Monocytes # (Auto) 0.5 K/mm3 (0.0-0.8); Monocytes % (Auto) 7.9 % (0.0-7.3); Platelet Count 185 K/mm3 (140-440); Red Blood Count 3.41 M/mm3 (3.65-5.03); Red Cell Distribution Width 13.7 % (13.2-15.2)
[2018-07-04 06:18] LABS: Calcium 9.2 mg/dL (8.4-10.2)
[2018-07-04] MEDS: LOVENOX SUB-Q SCH (09:55)
--- NOTE | 2018-07-04 10:29 | Consultation ---
History of Present Illness - Reason for Consult Consult date: 07/04/18 mediastinal and hilar lymphadenopathy - History of Present Illness Patient with a history of chest pain 1 day that she describes as left deep chest pain. Her chest pain is resolved. CT of the chest was performed which de monstrates mediastinal and hilar lymphadenopathy. Medications and Allergies Allergies Allergy/AdvReac Type Severity Reaction Status Date / Time coconut Allergy Swelling Verified 07/03/18 17:50 ibuprofen [From Motrin] Allergy Unknown Verified 07/03/18 19:40 Home Medications Medication Instructions Recorded Confirmed Last Taken Type Gemfibrozil [Lopid] 1 tab PO BID 04/10/18 04/12/18 04/12/18 History hydroCHLOROthiazide 25 mg PO DAILY 04/12/18 04/12/18 04/12/18 History [Hydrochlorothiazide] Folic Acid 1 tab PO DAILY #30 04/14/18 Unknown Rx Lisinopril [Zestril TAB] 40 mg PO QDAY tablet 04/14/18 Unknown Rx Baclofen [Lioresal] 10 mg PO Q8H PRN #21 tab 06/25/18 Unknown Rx HYDROcodone/ACETAMINOPHEN [[place] 1 each PO Q6H PRN #10 tablet 06/28/18 Unknown Rx 5-325 Tablet] Acetaminophen [Tylenol] 500 mg PO Q6HR #30 tablet 06/30/18 Unknown Rx Amoxicillin [Amoxicillin TAB] 875 mg PO BID #14 tablet 06/30/18 Unknown Rx Nystas/Diphen/Xyl Visc/Mylanta 30 ml MM Q4H PRN #120 ml 06/30/18 Unknown Rx [Magic Mouthwash] guaiFENesin [Robitussin] 200 mg PO TID #80 ml 06/30/18 Unknown Rx Acetaminophen [Acetaminophen TAB] 1,000 mg PO Q6HR #30 tablet 07/01/18 Unknown Rx Active Meds: Active Medications Acetaminophen (Tylenol) 650 mg PO Q4H PRN PRN Reason: Pain MILD(1-3)/Fever >100.5/TOBAR Enoxaparin Sodium (Lovenox) 40 mg SUB-Q QDAY SOPHIA Last Admin: 07/04/18 09:55 Dose: 40 mg Documented by: Sodium Chloride (Nacl 0.9% 1000 Ml) 1,000 mls @ 75 mls/hr IV DIRECT SOPHIA Last Admin: 07/04/18 04:55 Dose: 75 mls/hr Documented by: Morphine Sulfate (Morphine) 2 mg IV Q4H PRN PRN Reason: Pain, Moderate (4-6) Ondansetron HCl (Zofran) 4 mg IV Q8H PRN PRN Reason: Nausea And Vomiting Sodium Chloride (Sodium Chloride Flush Syringe 10 Ml) 10 ml IV BID SOPHIA Last Admin: 07/04/18 09:55 Dose: 10 ml Documented by: Sodium Chloride (Sodium Chloride Flush Syringe 10 Ml) 10 ml IV PRN PRN PRN Reason: LINE FLUSH Review of Systems All systems: negative Exam - Constitutional Vitals: Temp Pulse Resp BP Pulse Ox 98.4 F 90 18 129/76 100 07/04/18 07:19 07/04/18 04:00 07/04/18 07:19 07/04/18 07:19 07/04/18 08:05 General appearance: Present: no acute distress - EENT Eyes: Present: PERRL, EOM intact ENT: hearing intact - Neck Neck: Present: supple, normal ROM - Respiratory Respiratory effort: normal - Abdominal General gastrointestinal: Present: deferred Female genitourinary: Present: deferred - Rectal Rectal Exam: deferred - Psychiatric Psychiatric: appropriate mood/affect, cooperative Results - Labs CBC & Chem 7: 07/04/18 05:22 07/04/18 05:22 Labs: Abnormal lab results 07/03/18 07/03/18 07/03/18 Range/Units 18:34 18:34 21:57 RBC 3.51 L (3.65-5.03) M/mm3 MCV 98 H (79-97) fl MCH 34 H (28-32) pg MCHC (30-34) % [place] % (Auto) (0.0-7.3) % Seg Neutrophils % (40.0-70.0) % D-Dimer 546.52 H (0-234) ng/mlDDU Sodium 133 L (137-145) mmol/L Potassium 3.3 L (3.6-5.0) mmol/L Chloride 89.9 L (98-107) mmol/L BUN 21 H (7-17) mg/dL Glucose 124 H (65-100) mg/dL 07/04/18 07/04/18 Range/Units 05:22 05:22 RBC 3.41 L (3.65-5.03) M/mm3 MCV (79-97) fl MCH 34 H (28-32) pg MCHC 35 H (30-34) % [place] % (Auto) 7.9 H (0.0-7.3) % Seg Neutrophils % 71.0 H (40.0-70.0) % D-Dimer (0-234) ng/mlDDU Sodium 135 L (137-145) mmol/L Potassium 3.5 L (3.6-5.0) mmol/L Chloride 94.3 L (98-107) mmol/L BUN (7-17) mg/dL Glucose (65-100) mg/dL - Imaging and Cardiology CT scan - chest: report reviewed, image reviewed Assessment and Plan Patient will need further evaluation with a CT of the abdomen and pelvis with IV contrast. If the patient needs biopsy of her mediastinal and hilar nodes, she will need bronchoscopic biopsy.
--- NOTE | 2018-07-04 14:41 | Progress Note ---
Assessment and Plan Assessment and plan: Pulmonary nodules. The pulmonary nodules are concerning for malignancy. Oncology consultation pending. CT-guided biopsy. Follow-up tumor markers. Pulmonary consultation for possible bronchoscopy. Chest pain. Etiology likely secondary to above. Follow cardiac isoenzymes. Hypertension. Continue antihypertensive medications. History Interval history: No new issues overnight. Hospitalist Physical - Constitutional Vitals: Temp Pulse Resp BP Pulse Ox 98.7 F 88 17 123/73 97 07/04/18 11:55 07/04/18 11:55 07/04/18 12:03 07/04/18 11:55 07/04/18 11:55 General appearance: Present: no acute distress - EENT Eyes: Present: PERRL, EOM intact ENT: hearing intact, clear oral mucosa, dentition normal - Neck Neck: Present: supple, normal ROM - Respiratory Respiratory effort: normal Respiratory: bilateral: CTA - Cardiovascular Rhythm: regular Heart Sounds: Present: S1 & S2. Absent: gallop, rub - Extremities Extremities: no ischemia, No edema, Full ROM - Abdominal General gastrointestinal: soft, non-tender, non-distended, normal bowel sounds - Integumentary Integumentary: Present: clear, warm, dry - Neurologic Neurologic: CNII-XII intact, moves all extremities Results - Labs CBC & Chem 7: 07/04/18 05:22 07/04/18 05:22 Labs: Laboratory Last Values WBC 6.8 K/mm3 (4.5-11.0) 07/04/18 05:22 RBC 3.41 M/mm3 (3.65-5.03) L 07/04/18 05:22 Hgb 11.7 gm/dl (10.1-14.3) 07/04/18 05:22 Hct 33.1 % (30.3-42.9) 07/04/18 05:22 MCV 97 fl (79-97) 07/04/18 05:22 MCH 34 pg (28-32) H 07/04/18 05:22 MCHC 35 % (30-34) H 07/04/18 05:22 RDW 13.7 % (13.2-15.2) 07/04/18 05:22 Plt Count 185 K/mm3 (140-440) 07/04/18 05:22 Lymph % (Auto) 17.4 % (13.4-35.0) 07/04/18 05:22 [place] % (Auto) 7.9 % (0.0-7.3) H 07/04/18 05:22 Eos % (Auto) 2.7 % (0.0-4.3) 07/04/18 05:22 Baso % (Auto) 1.0 % (0.0-1.8) 07/04/18 05:22 Lymph # 1.2 K/mm3 (1.2-5.4) 07/04/18 05:22 [place] # 0.5 K/mm3 (0.0-0.8) 07/04/18 05:22 Eos # 0.2 K/mm3 (0.0-0.4) 07/04/18 05:22 Baso # 0.1 K/mm3 (0.0-0.1) 07/04/18 05:22 Seg Neutrophils % 71.0 % (40.0-70.0) H 07/04/18 05:22 Seg Neutrophils # 4.8 K/mm3 (1.8-7.7) 07/04/18 05:22 546.52 ng/mlDDU (0-234) H 07/03/18 21:57 Sodium 135 mmol/L (137-145) L 07/04/18 05:22 Potassium 3.5 mmol/L (3.6-5.0) L 07/04/18 05:22 Chloride 94.3 mmol/L (98-107) L 07/04/18 05:22 Carbon Dioxide 25 mmol/L (22-30) 07/04/18 05:22 19 mmol/L 07/04/18 05:22 BUN 17 mg/dL (7-17) 07/04/18 05:22 1.2 mg/dL (0.7-1.2) 07/04/18 05:22 Estimated GFR 56 ml/min 07/04/18 05:22 14 % 07/04/18 05:22 Glucose 94 mg/dL (65-100) 07/04/18 05:22 POC Glucose 99 (70-105) 07/04/18 11:14 Calcium 9.2 mg/dL (8.4-10.2) 07/04/18 05:22 0.40 mg/dL (0.1-1.2) 07/03/18 18:34 AST 22 units/L (5-40) 07/03/18 18:34 ALT 11 units/L (7-56) 07/03/18 18:34 93 units/L (35-129) 07/03/18 18:34 < 0.010 ng/mL (0.00-0.029) 07/03/18 18:34 6.9 g/dL (6.3-8.2) 07/03/18 18:34 3.9 g/dL (3.9-5) 07/03/18 18:34 1.3 % 07/03/18 18:34 Straw (Yellow) 07/03/18 20:10 Clear (Clear) 07/03/18 20:10 6.0 (5.0-7.0) 07/03/18 20:10 Ur Specific [place] 1.013 (1.003-1.030) 07/03/18 20:10 <15 mg/dl mg/dL (Negative) 07/03/18 20:10 Neg mg/dL (Negative) 07/03/18 20:10 Neg mg/dL (Negative) 07/03/18 20:10 Neg (Negative) 07/03/18 20:10 Neg (Negative) 07/03/18 20:10 Neg (Negative) 07/03/18 20:10 < 2.0 mg/dL (<2.0) 07/03/18 20:10 Ur Leukocyte Esterase Tr (Negative) 07/03/18 20:10 1.0 /HPF (0.0-6.0) 07/03/18 20:10 1.0 /HPF (0.0-6.0) 07/03/18 20:10 U Epithel Cells (Auto) 1.0 /HPF (0-13.0) 07/03/18 20:10 1+ /HPF (Negative) 07/03/18 20:10 Active Medications - Current Medications Current Medications: Generic Name Dose Route Start Last Admin Trade Name Freq PRN Reason Stop Dose Admin Acetaminophen 650 mg 07/03/18 21:57 Tylenol PO Q4H PRN Pain MILD(1-3)/Fever >100.5/TOBAR Enoxaparin Sodium 40 mg 07/04/18 10:00 07/04/18 09:55 Lovenox SUB-Q 40 mg QDAY SOPHIA Administration Sodium Chloride 1,000 mls @ 75 mls/hr 07/03/18 23:00 07/04/18 04:55 Nacl 0.9% 1000 Ml IV 75 mls/hr DIRECT SOPHIA Administration Morphine Sulfate 2 mg 07/03/18 21:57 Morphine IV Q4H PRN Pain, Moderate (4-6) Ondansetron HCl 4 mg 07/03/18 21:57 Zofran IV Q8H PRN Nausea And Vomiting Sodium Chloride 10 ml 07/03/18 22:00 07/04/18 09:55 Sodium Chloride Flush Syringe 10 Ml IV 10 ml BID SOPHIA Administration Sodium Chloride 10 ml 07/03/18 21:57 Sodium Chloride Flush Syringe 10 Ml IV PRN PRN LINE FLUSH
--- NOTE | 2018-07-04 18:19 | Cat Scan Report ---
PROCEDURE: CT ABDOMEN PELVIS W CON TECHNIQUE: Computerized axial tomography of the abdomen and pelvis was performed after the IV inject ion of iodinated nonionic contrast. Sagittal and coronal reformatted images obtained. CT DOSE LENGTH PRODUCT: 844.3 mGycm HISTORY: lymphadenopathy COMPARISONS: Chest CT July 03, 2018 . FINDINGS: Lung bases demonstrate no consolidation or effusion. Punctate pulmonary nodules noted. Please see gricelda or chest CT description Liver, spleen and pancreas unremarkable. Density in the gallbladder representing vicarious excretion of contrast. No biliary dilatation Adrenal glands unremarkable. Kidneys normal enhancement. Symmetric secretion of contrast. No hydronephrosis. No obstruction. Urete rs are nondilated Anteverted uterus. Contracted bladder. No adnexal mass Minimal atherosclerotic calcification of the aorta. No aneurysm. Mesenteric vessels patent. No retroperitoneal adenopathy. No pelvic sidewall adenopathy. No renal adenopathy No bowel obstruction. Diverticulosis. No diverticulitis. Normal appendix. Omentum and mesentery unrem arkable. Umbilical hernia contains fat and anterior margin mid transverse colon. Subcutaneous stranding and gas to the right of midline compatible with injection site No acute bony abnormality IMPRESSION: The pelvis demonstrate no adenopathy or mass. Diverticulosis. No diverticulitis Umbilical hernia containing fat and anterior wall transverse colon This document is electronically signed by Kaveh Curran MD., Jul 04 2018 06:17:06 PM ET
--- NOTE | 2018-07-04 19:55 | Event Note ---
Date: 07/04/18 [id number]
--- NOTE | 2018-07-05 02:16 | Consultation ---
HISTORY OF PRESENT ILLNESS: I saw the patient, a 57 years old female with past history of hypertension, who came to the hospital with chest pain ____. During this admission, the patient was found to have multiple lung lesions and lymph nodes. I have been asked to evaluate the patient for possible neoplasm. At this time, no headache, no visual disturbances, no ear discharge. History of chest pain is present. No abdominal pain, no vomiting, no diarrhea, no dysuria. The patient had mammograms in the past. No hematemesis, no hematochezia, no hematuria. PAST MEDICAL HISTORY: Includes hypertension. PAST SURGICAL HISTORY: None. SOCIAL HISTORY: History of alcohol use is present. FAMILY HISTORY: Hypertension. ALLERGIES: To COCONUT and IBUPROFEN. PHYSICAL EXAMINATION: VITAL SIGNS: Temperature 98.9, pulse 98, respirations 20, BP 146/80. HEENT: No pallor, no icterus. NECK: No neck lymph nodes. HEART: S1, S2. LUNGS: Clear to auscultation. ABDOMEN: Soft. No liver or spleen is palpable. BREASTS: [place] present. No mass. EXTREMITIES: No calf tenderness. NEUROLOGIC: Alert, awake, oriented. LABORATORY DATA: White count is 6.8, hemoglobin 11.7, MCV 97, platelets 185. Potassium 3.5, creatinine 1.2, calcium is 9.2, bilirubin 0.4. RADIOLOGY: CT chest was done. This showed extensive bilateral mediastinal and hilar lymph nodes. There also paraaortic lymph nodes and numerous bilateral pulmonary nodules, measuring up to 4 mm. ASSESSMENT AND PLAN: 1. Lung nodules. 2. Hilar and mediastinal lymph nodes. 3. CT abdomen did not show any liver lesions. 4. There is no clinically breast mass. 5. We will do tumor markers. 6. History of chest pain. 7. History of hypertension. 8. Interventional Radiology consultation for possible biopsy. JOB# [id number] NM/NTS
[2018-07-05] MEDS: LOVENOX SUB-Q SCH (10:40)
--- NOTE | 2018-07-05 12:32 | Progress Note ---
Assessment and Plan Assessment and plan: Pulmonary nodules. The pulmonary nodules are concerning for malignancy. Oncology consultation pending. CT-guided biopsy. Follow-up tumor markers. Pulmonary consultation for possible bronchoscopy. Chest pain. Etiology likely secondary to above. Follow cardiac isoenzymes. Hypertension. Continue antihypertensive medications. History Interval history: No new issues overnight. Hospitalist Physical - Constitutional Vitals: Temp Pulse Resp BP Pulse Ox 98.6 F 91 H 18 136/66 99 07/05/18 11:33 07/05/18 11:33 07/05/18 11:33 07/05/18 11:33 07/05/18 11:33 General appearance: Present: no acute distress - EENT Eyes: Present: PERRL, EOM intact ENT: hearing intact, clear oral mucosa, dentition normal - Neck Neck: Present: supple, normal ROM - Respiratory Respiratory effort: normal Respiratory: bilateral: CTA - Cardiovascular Rhythm: regular Heart Sounds: Present: S1 & S2. Absent: gallop, rub - Extremities Extremities: no ischemia, No edema, Full ROM - Abdominal General gastrointestinal: soft, non-tender, non-distended, normal bowel sounds - Integumentary Integumentary: Present: clear, warm, dry - Neurologic Neurologic: CNII-XII intact, moves all extremities Results - Labs CBC & Chem 7: 07/04/18 05:22 07/04/18 05:22 Labs: Laboratory Last Values WBC 6.8 K/mm3 (4.5-11.0) 07/04/18 05:22 RBC 3.41 M/mm3 (3.65-5.03) L 07/04/18 05:22 Hgb 11.7 gm/dl (10.1-14.3) 07/04/18 05:22 Hct 33.1 % (30.3-42.9) 07/04/18 05:22 MCV 97 fl (79-97) 07/04/18 05:22 MCH 34 pg (28-32) H 07/04/18 05:22 MCHC 35 % (30-34) H 07/04/18 05:22 RDW 13.7 % (13.2-15.2) 07/04/18 05:22 Plt Count 185 K/mm3 (140-440) 07/04/18 05:22 Lymph % (Auto) 17.4 % (13.4-35.0) 07/04/18 05:22 [place] % (Auto) 7.9 % (0.0-7.3) H 07/04/18 05:22 Eos % (Auto) 2.7 % (0.0-4.3) 07/04/18 05:22 Baso % (Auto) 1.0 % (0.0-1.8) 07/04/18 05:22 Lymph # 1.2 K/mm3 (1.2-5.4) 07/04/18 05:22 [place] # 0.5 K/mm3 (0.0-0.8) 07/04/18 05:22 Eos # 0.2 K/mm3 (0.0-0.4) 07/04/18 05:22 Baso # 0.1 K/mm3 (0.0-0.1) 07/04/18 05:22 Seg Neutrophils % 71.0 % (40.0-70.0) H 07/04/18 05:22 Seg Neutrophils # 4.8 K/mm3 (1.8-7.7) 07/04/18 05:22 546.52 ng/mlDDU (0-234) H 07/03/18 21:57 Sodium 135 mmol/L (137-145) L 07/04/18 05:22 Potassium 3.5 mmol/L (3.6-5.0) L 07/04/18 05:22 Chloride 94.3 mmol/L (98-107) L 07/04/18 05:22 Carbon Dioxide 25 mmol/L (22-30) 07/04/18 05:22 19 mmol/L 07/04/18 05:22 BUN 17 mg/dL (7-17) 07/04/18 05:22 1.2 mg/dL (0.7-1.2) 07/04/18 05:22 Estimated GFR 56 ml/min 07/04/18 05:22 14 % 07/04/18 05:22 Glucose 94 mg/dL (65-100) 07/04/18 05:22 POC Glucose 99 (70-105) 07/04/18 11:14 Calcium 9.2 mg/dL (8.4-10.2) 07/04/18 05:22 0.40 mg/dL (0.1-1.2) 07/03/18 18:34 AST 22 units/L (5-40) 07/03/18 18:34 ALT 11 units/L (7-56) 07/03/18 18:34 93 units/L (35-129) 07/03/18 18:34 < 0.010 ng/mL (0.00-0.029) 07/03/18 18:34 6.9 g/dL (6.3-8.2) 07/03/18 18:34 3.9 g/dL (3.9-5) 07/03/18 18:34 1.3 % 07/03/18 18:34 Straw (Yellow) 07/03/18 20:10 Clear (Clear) 07/03/18 20:10 6.0 (5.0-7.0) 07/03/18 20:10 Ur Specific [place] 1.013 (1.003-1.030) 07/03/18 20:10 <15 mg/dl mg/dL (Negative) 07/03/18 20:10 Neg mg/dL (Negative) 07/03/18 20:10 Neg mg/dL (Negative) 07/03/18 20:10 Neg (Negative) 07/03/18 20:10 Neg (Negative) 07/03/18 20:10 Neg (Negative) 07/03/18 20:10 < 2.0 mg/dL (<2.0) 07/03/18 20:10 Ur Leukocyte Esterase Tr (Negative) 07/03/18 20:10 1.0 /HPF (0.0-6.0) 07/03/18 20:10 1.0 /HPF (0.0-6.0) 07/03/18 20:10 U Epithel Cells (Auto) 1.0 /HPF (0-13.0) 07/03/18 20:10 1+ /HPF (Negative) 07/03/18 20:10 Active Medications - Current Medications Current Medications: Generic Name Dose Route Start Last Admin Trade Name Freq PRN Reason Stop Dose Admin Acetaminophen 650 mg 07/03/18 21:57 Tylenol PO Q4H PRN Pain MILD(1-3)/Fever >100.5/TOBAR Enoxaparin Sodium 40 mg 07/04/18 10:00 07/05/18 10:40 Lovenox SUB-Q 40 mg QDAY SOPIHA Administration Sodium Chloride 1,000 mls @ 75 mls/hr 07/03/18 23:00 07/04/18 04:55 Nacl 0.9% 1000 Ml IV 75 mls/hr DIRECT SOPHIA Administration Morphine Sulfate 2 mg 07/03/18 21:57 Morphine IV Q4H PRN Pain, Moderate (4-6) Ondansetron HCl 4 mg 07/03/18 21:57 Zofran IV Q8H PRN Nausea And Vomiting Sodium Chloride 10 ml 07/03/18 22:00 07/04/18 21:24 Sodium Chloride Flush Syringe 10 Ml IV 10 ml BID SOPHIA Administration Sodium Chloride 10 ml 07/03/18 21:57 Sodium Chloride Flush Syringe 10 Ml IV PRN PRN LINE FLUSH
--- NOTE | 2018-07-05 13:22 | Event Note ---
Date: 07/05/18 None of the lymphadenopathy is accessible to percutaneous biopsy. If biopsy needed, consider pulmonology consult for bronchoscopic guided bx.
[2018-07-05] MEDS: SODIUM CHLORIDE FLUSH SYRINGE 10 ML IV SCH ×2 (19:28→21:32)
[2018-07-05] MEDS: NACL 0.9% 1000 ML 1,000 ML IV SCH (22:56)
--- NOTE | 2018-07-06 08:32 | Hem/Onc Progress Note ---
Assessment and Plan 1. Lung nodules. 2. Hilar and mediastinal lymph nodes. 3. CT abdomen did not show any liver lesions. 4. There is no clinically breast mass. 5. tumor markers. 6. History of chest pain. 7. History of hypertension. 8. Interventional Radiology consultation for possible biopsy. CT abdo done - no liver lesions pulm consult - Patient Problems (1) Mediastinal adenopathy Current Visit: Yes Status: Acute Subjective Date of service: 07/06/18 Principal diagnosis: lung mass Interval history: no pain Objective - Constitutional Vitals: Last Vital Signs Temp 97.9 F 07/06/18 04:32 Pulse 82 07/06/18 04:32 Resp 18 07/06/18 04:32 BP 144/87 07/06/18 04:32 Pulse Ox 99 07/06/18 04:32 Pain Intensity (0-10): denies any pain General appearance: no acute distress Performance status: 3-limited selfcare - EENT Eyes: PERRL ENT: hearing intact, clear oral mucosa Lymph node exam: bilateral cervical - Neck Neck: normal ROM - Respiratory Respiratory effort: Positive: normal Respiratory: bilateral: diminished - Cardiovascular Heart Sounds: Present: S1 & S2 Extremities: No edema, normal temperature - Gastrointestinal General gastrointestinal: Present: soft, non-tender Rectal Exam: deferred - Genitourinary Female genitourinary: Present: deferred - Integumentary Integumentary: warm - Musculoskeletal Musculoskeletal: strength equal bilaterally - Neurologic Neurologic: moves all extremities Medications & Allergies - Medications Allergies/Adverse Reactions: Allergies coconut Allergy (Verified 07/03/18 17:50) Swelling ibuprofen [From Motrin] Allergy (Verified 07/03/18 19:40) Unknown Pt IS able to take Asprin Home Medications: Home Medications Medication Instructions Recorded Confirmed Last Taken Type RX: Gemfibrozil [Lopid] 1 tab PO BID 04/10/18 07/04/18 04/12/18 History RX: hydroCHLOROthiazide 25 mg PO DAILY 04/12/18 07/04/18 04/12/18 History [Hydrochlorothiazide] RX: Lisinopril [Zestril TAB] 40 mg PO QDAY tablet 04/14/18 07/04/18 Unknown Rx Aspirin [Adult Aspirin] 81 mg PO DAILY 07/04/18 07/04/18 Unknown History RX: Folic Acid [Folvite] 1 mg PO QDAY 07/04/18 07/04/18 Unknown History Active Medications: Generic Name Dose Route Start Last Admin Trade Name Freq PRN Reason Stop Dose Admin Acetaminophen 650 mg 07/03/18 21:57 Tylenol PO Q4H PRN Pain MILD(1-3)/Fever >100.5/TOBAR Enoxaparin Sodium 40 mg 07/04/18 10:00 07/05/18 10:40 Lovenox SUB-Q 40 mg QDAY SOPHIA Administration Sodium Chloride 1,000 mls @ 75 mls/hr 07/03/18 23:00 07/05/18 22:56 Nacl 0.9% 1000 Ml IV 75 mls/hr DIRECT SOPHIA Administration Morphine Sulfate 2 mg 07/03/18 21:57 Morphine IV Q4H PRN Pain, Moderate (4-6) Ondansetron HCl 4 mg 07/03/18 21:57 Zofran IV Q8H PRN Nausea And Vomiting Sodium Chloride 10 ml 07/03/18 22:00 07/05/18 21:32 Sodium Chloride Flush Syringe 10 Ml IV 10 ml BID SOPHIA Administration Sodium Chloride 10 ml 07/03/18 21:57 Sodium Chloride Flush Syringe 10 Ml IV PRN PRN LINE FLUSH
[2018-07-06] MEDS: LOVENOX SUB-Q SCH (09:09)
[2018-07-06] MEDS: SODIUM CHLORIDE FLUSH SYRINGE 10 ML IV SCH ×2 (09:15→21:07)
--- NOTE | 2018-07-06 10:27 | Progress Note ---
Assessment and Plan Assessment and plan: Pulmonary nodules. The pulmonary nodules are concerning for malignancy. Oncology consultation pending. CT-guided biopsy. Follow-up tumor markers. Pulmonary consultation for possible bronchoscopy. Chest pain. Etiology likely secondary to above. Follow cardiac isoenzymes. Hypertension. Continue antihypertensive medications. History Interval history: No new issues overnight. Hospitalist Physical - Constitutional Vitals: Temp Pulse Resp BP Pulse Ox 98.3 F 92 H 16 145/80 100 07/06/18 09:03 07/06/18 09:03 07/06/18 09:03 07/06/18 09:03 07/06/18 09:03 General appearance: Present: no acute distress - EENT Eyes: Present: PERRL, EOM intact ENT: hearing intact, clear oral mucosa, dentition normal - Neck Neck: Present: supple, normal ROM - Respiratory Respiratory effort: normal Respiratory: bilateral: CTA - Cardiovascular Rhythm: regular Heart Sounds: Present: S1 & S2. Absent: gallop, rub - Extremities Extremities: no ischemia, No edema, Full ROM - Abdominal General gastrointestinal: soft, non-tender, non-distended, normal bowel sounds - Integumentary Integumentary: Present: clear, warm, dry - Neurologic Neurologic: CNII-XII intact, moves all extremities Results - Labs CBC & Chem 7: 07/04/18 05:22 07/04/18 05:22 Labs: Laboratory Last Values WBC 6.8 K/mm3 (4.5-11.0) 07/04/18 05:22 RBC 3.41 M/mm3 (3.65-5.03) L 07/04/18 05:22 Hgb 11.7 gm/dl (10.1-14.3) 07/04/18 05:22 Hct 33.1 % (30.3-42.9) 07/04/18 05:22 MCV 97 fl (79-97) 07/04/18 05:22 MCH 34 pg (28-32) H 07/04/18 05:22 MCHC 35 % (30-34) H 07/04/18 05:22 RDW 13.7 % (13.2-15.2) 07/04/18 05:22 Plt Count 185 K/mm3 (140-440) 07/04/18 05:22 Lymph % (Auto) 17.4 % (13.4-35.0) 07/04/18 05:22 [place] % (Auto) 7.9 % (0.0-7.3) H 07/04/18 05:22 Eos % (Auto) 2.7 % (0.0-4.3) 07/04/18 05:22 Baso % (Auto) 1.0 % (0.0-1.8) 07/04/18 05:22 Lymph # 1.2 K/mm3 (1.2-5.4) 07/04/18 05:22 [place] # 0.5 K/mm3 (0.0-0.8) 07/04/18 05:22 Eos # 0.2 K/mm3 (0.0-0.4) 07/04/18 05:22 Baso # 0.1 K/mm3 (0.0-0.1) 07/04/18 05:22 Seg Neutrophils % 71.0 % (40.0-70.0) H 07/04/18 05:22 Seg Neutrophils # 4.8 K/mm3 (1.8-7.7) 07/04/18 05:22 546.52 ng/mlDDU (0-234) H 07/03/18 21:57 Sodium 135 mmol/L (137-145) L 07/04/18 05:22 Potassium 3.5 mmol/L (3.6-5.0) L 07/04/18 05:22 Chloride 94.3 mmol/L (98-107) L 07/04/18 05:22 Carbon Dioxide 25 mmol/L (22-30) 07/04/18 05:22 19 mmol/L 07/04/18 05:22 BUN 17 mg/dL (7-17) 07/04/18 05:22 1.2 mg/dL (0.7-1.2) 07/04/18 05:22 Estimated GFR 56 ml/min 07/04/18 05:22 14 % 07/04/18 05:22 Glucose 94 mg/dL (65-100) 07/04/18 05:22 POC Glucose 99 (70-105) 07/04/18 11:14 Calcium 9.2 mg/dL (8.4-10.2) 07/04/18 05:22 0.40 mg/dL (0.1-1.2) 07/03/18 18:34 AST 22 units/L (5-40) 07/03/18 18:34 ALT 11 units/L (7-56) 07/03/18 18:34 93 units/L (35-129) 07/03/18 18:34 < 0.010 ng/mL (0.00-0.029) 07/03/18 18:34 6.9 g/dL (6.3-8.2) 07/03/18 18:34 3.9 g/dL (3.9-5) 07/03/18 18:34 1.3 % 07/03/18 18:34 Straw (Yellow) 07/03/18 20:10 Clear (Clear) 07/03/18 20:10 6.0 (5.0-7.0) 07/03/18 20:10 Ur Specific [place] 1.013 (1.003-1.030) 07/03/18 20:10 <15 mg/dl mg/dL (Negative) 07/03/18 20:10 Neg mg/dL (Negative) 07/03/18 20:10 Neg mg/dL (Negative) 07/03/18 20:10 Neg (Negative) 07/03/18 20:10 Neg (Negative) 07/03/18 20:10 Neg (Negative) 07/03/18 20:10 < 2.0 mg/dL (<2.0) 07/03/18 20:10 Ur Leukocyte Esterase Tr (Negative) 07/03/18 20:10 1.0 /HPF (0.0-6.0) 07/03/18 20:10 1.0 /HPF (0.0-6.0) 07/03/18 20:10 U Epithel Cells (Auto) 1.0 /HPF (0-13.0) 07/03/18 20:10 1+ /HPF (Negative) 07/03/18 20:10 Active Medications - Current Medications Current Medications: Generic Name Dose Route Start Last Admin Trade Name Freq PRN Reason Stop Dose Admin Acetaminophen 650 mg 07/03/18 21:57 Tylenol PO Q4H PRN Pain MILD(1-3)/Fever >100.5/TOBAR Enoxaparin Sodium 40 mg 07/04/18 10:00 07/06/18 09:09 Lovenox SUB-Q 40 mg QDAY SOPHIA Administration Sodium Chloride 1,000 mls @ 75 mls/hr 07/03/18 23:00 07/05/18 22:56 Nacl 0.9% 1000 Ml IV 75 mls/hr DIRECT SOPHIA Administration Morphine Sulfate 2 mg 07/03/18 21:57 Morphine IV Q4H PRN Pain, Moderate (4-6) Ondansetron HCl 4 mg 07/03/18 21:57 Zofran IV Q8H PRN Nausea And Vomiting Sodium Chloride 10 ml 07/03/18 22:00 07/06/18 09:15 Sodium Chloride Flush Syringe 10 Ml IV Not Given BID SOPHIA Sodium Chloride 10 ml 07/03/18 21:57 Sodium Chloride Flush Syringe 10 Ml IV PRN PRN LINE FLUSH
[2018-07-06] MEDS: NACL 0.9% 1000 ML 1,000 ML IV SCH (11:49)
--- NOTE | 2018-07-06 21:16 | Consultation ---
History of Present Illness Consult date: 07/06/18 Reason for consult: chest pain History of present illness: PULMONARY AND CRITICAL CARE CONSULTATION DR. Francisco thank you for asking us to participate in the care of this patient. 57-year-old woman with a history of hypertension comes emergency room with complaints of chest pain located in the left substernal area described as sharp, intermittent for 5 minutes, intensity 5/10, no radiation, cannot identify exacerbating or relieving factors. Admits to shortness breath, palpitation, no nausea vomiting, diaphoresis. Has a left tibial fracture, sedentary lifestyle Patient sleeping at this time. Unable to get further history. Past History Past Medical History: hypertension Medications and Allergies Allergies Allergy/AdvReac Type Severity Reaction Status Date / Time coconut Allergy Swelling Verified 07/03/18 17:50 ibuprofen [From Motrin] Allergy Unknown Verified 07/03/18 19:40 Home Medications Medication Instructions Recorded Confirmed Last Taken Type Gemfibrozil [Lopid] 1 tab PO BID 04/10/18 07/04/18 04/12/18 History hydroCHLOROthiazide 25 mg PO DAILY 04/12/18 07/04/18 04/12/18 History [Hydrochlorothiazide] Lisinopril [Zestril TAB] 40 mg PO QDAY tablet 04/14/18 07/04/18 Unknown Rx Aspirin [Adult Aspirin] 81 mg PO DAILY 07/04/18 07/04/18 Unknown History Folic Acid [Folvite] 1 mg PO QDAY 07/04/18 07/04/18 Unknown History Active Meds: Active Medications Acetaminophen (Tylenol) 650 mg PO Q4H PRN PRN Reason: Pain MILD(1-3)/Fever >100.5/TOBAR Last Admin: 07/06/18 21:06 Dose: 650 mg Documented by: Enoxaparin Sodium (Lovenox) 40 mg SUB-Q QDAY [facility] Last Admin: 07/06/18 09:09 Dose: 40 mg Documented by: Sodium Chloride (Nacl 0.9% 1000 Ml) 1,000 mls @ 75 mls/hr IV DIRECT [facility] Last Admin: 07/06/18 11:49 Dose: 75 mls/hr Documented by: Morphine Sulfate (Morphine) 2 mg IV Q4H PRN PRN Reason: Pain, Moderate (4-6) Ondansetron HCl (Zofran) 4 mg IV Q8H PRN PRN Reason: Nausea And Vomiting Sodium Chloride (Sodium Chloride Flush Syringe 10 Ml) 10 ml IV BID SOPHIA Last Admin: 07/06/18 21:07 Dose: 10 ml Documented by: Sodium Chloride (Sodium Chloride Flush Syringe 10 Ml) 10 ml IV PRN PRN PRN Reason: LINE FLUSH Review of Systems All systems: negative Physical Examination Vital signs: Vital Signs Temp Pulse Resp BP Pulse Ox 97.9 F 109 H 20 100/66 99 07/03/18 17:56 07/03/18 17:56 07/03/18 17:56 07/03/18 17:56 07/03/18 17:56 General appearance: no acute distress, asleep Eyes: non-icteric ENT: oropharynx moist Neck: supple, no JVD Ascultation: Bilateral: clear Cardiovascular: regular rate and rhythm Gastrointestinal: normoactive bowel sounds, soft, non-tender Integumentary: normal Extremities: no cyanosis, no edema Musculoskeletal: no deformities Gait: other (Patient sleeping) non-focal exam, pupils equal and round other (Patient sleeping) Results - Laboratory Findings CBC and BMP: 07/07/18 05:08 07/07/18 05:08 PT/INR, D-dimer 546.52 ng/mlDDU (0-234) H 07/03/18 21:57 Abnormal lab findings: Abnormal Labs 07/03/18 07/03/18 07/03/18 18:34 18:34 21:57 RBC 3.51 L MCV 98 H MCH 34 H MCHC [place] % (Auto) Seg Neutrophils % D-Dimer 546.52 H Sodium 133 L Potassium 3.3 L Chloride 89.9 L BUN 21 H Glucose 124 H 07/04/18 07/04/18 05:22 05:22 RBC 3.41 L MCV MCH 34 H MCHC 35 H [place] % (Auto) 7.9 H Seg Neutrophils % 71.0 H D-Dimer Sodium 135 L Potassium 3.5 L Chloride 94.3 L BUN Glucose - Diagnostic Findings Chest x-ray: report reviewed (Reported no acute disease.), image reviewed CT scan - chest: report reviewed, image reviewed Additional studies: CT of chest done on 07/03/18 FINDINGS: Heart and pericardium: No pericardial effusion or thickening. Thoracic aorta: No aneurysm or dissection. Pulmonary vasculature: Normal. Lymph nodes: Extensive bilateral mediastinal and hilar adenopathy. Hilar nodes measure up to 12 mm short axis. There are bilateral enlarged paratracheal lymph nodes, measuring up to 1 cm short axis. Aorticopulmonary and subcarinal enlarged nodes are also present Lungs: There are numerous bilateral pulmonary nodules, mostly throughout the right lung, measuring up to 4 mm. Pleural space: No effusion, thickening, or pneumothorax. Musculoskeletal structures: No significant abnormality. Upper abdominal structures: No significant abnormality. IMPRESSION: Extensive bilateral mediastinal and hilar adenopathy and numerous bilateral pulmonary nodules, concerning for metastatic/malignant process . Assessment and Plan 57-year-old woman with a history of hypertension comes emergency room with complaints of chest pain located in the left substernal area described as sharp, intermittent for 5 minutes, intensity 5/10, no radiation, cannot identify exacerbating or relieving factors. Admits to shortness breath, palpitation, no nausea vomiting, diaphoresis. Has a left tibial fracture, sedentary lifestyle Patient sleeping at this time. Unable to get further histor - Patient Problems (1) Chest pain Current Visit: Yes Status: Acute Qualifiers: Chest pain type: unspecified Qualified Code(s): R07.9 - Chest pain, unspecified Plan to address problem: Recommend cardiology evaluation. Also recommend upper GI series for GE reflux. (2) Pulmonary nodule Current Visit: Yes Status: Acute Plan to address problem: Appears not big enough nodule to get resentative specimens either by bronchoscopy or by percutaneous needle biopsy. (3) Mediastinal adenopathy Current Visit: Yes Status: Acute Plan to address problem: Differential possible granulomatous disease like sarcoidosis or fungal infections or TB. Also R/O Malignancy. Patient has no active signs of TB. No cough, no fever, no night sweats. Applying PPD. Obtaining AMARJIT level Recommend thoracic surgery evaluation for mediastinoscopy. (4) Hypotension Current Visit: Yes Status: Acute Qualifiers: Hypotension type: unspecified hypotension type Qualified Code(s): I95.9 - Hypotension, unspecified Plan to address problem: Patient blood pressure cam up Patient to days blood pressure 142/72.
[2018-07-07] MEDS: NACL 0.9% 1000 ML 1,000 ML IV SCH ×2 (00:21→13:10)
[2018-07-07 06:14] LABS: BUN/Creatinine Ratio 9; Blood Urea Nitrogen 8 mg/dL (7-17); Calcium 9.5 mg/dL (8.4-10.2); Hemolysis Index 8
[2018-07-07 06:22] LABS: Basophils % (Auto) 0.7 % (0.0-1.8); Eosinophils # (Auto) 0.4 K/mm3 (0.0-0.4); Eosinophils % (Auto) 7.7 % (0.0-4.3); Hematocrit 30.8 % (30.3-42.9); Hemoglobin 10.8 gm/dl (10.1-14.3); Lymphocytes # (Auto) 0.9 K/mm3 (1.2-5.4); Lymphocytes % (Auto) 17.8 % (13.4-35.0); Mean Corpuscular HGB Conc 35 % (30-34); Mean Corpuscular Volume 99 fl (79-97); Monocytes # (Auto) 0.6 K/mm3 (0.0-0.8); Monocytes % (Auto) 10.9 % (0.0-7.3); Platelet Count 161 K/mm3 (140-440); Red Blood Count 3.11 M/mm3 (3.65-5.03); Red Cell Distribution Width 13.6 % (13.2-15.2)
--- NOTE | 2018-07-07 07:00 | Hem/Onc Progress Note ---
Assessment and Plan 1. Lung nodules. 2. Hilar and mediastinal lymph nodes. 3. CT abdomen did not show any liver lesions. 4. There is no clinically breast mass. 5. tumor markers. 6. History of chest pain. 7. History of hypertension. 8. Interventional Radiology consultation for possible biopsy. CT abdo done - no liver lesions pulm consult - done IR suggested bronch bx CA 125 not elevated - Patient Problems (1) Mediastinal adenopathy Current Visit: Yes Status: Acute Subjective Date of service: 07/07/18 Principal diagnosis: lung lesions and LN in chest Interval history: seen by pulm team ambulating Objective - Constitutional Vitals: Last Vital Signs Temp 98.0 F 07/07/18 04:22 Pulse 74 07/07/18 04:22 Resp 18 07/07/18 04:22 BP 148/85 07/07/18 04:22 Pulse Ox 99 07/07/18 04:22 Pain Intensity (0-10): denies any pain General appearance: no acute distress Performance status: 3-limited selfcare - EENT Eyes: PERRL, EOM intact ENT: hearing intact Lymph node exam: negative cervical - Neck Neck: supple, normal ROM - Respiratory Respiratory effort: Positive: normal Respiratory: bilateral: CTA - Cardiovascular Heart Sounds: Present: S1 & S2 Extremities: No edema, normal temperature - Gastrointestinal General gastrointestinal: Present: soft, non-tender Rectal Exam: deferred - Genitourinary Female genitourinary: Present: deferred - Integumentary Integumentary: warm - Musculoskeletal Musculoskeletal: strength equal bilaterally - Neurologic Neurologic: moves all extremities - Labs Lab Results: Laboratory Results - last 24 hr 07/04/18 07/07/18 07/07/18 10:37 05:08 05:08 WBC 5.2 RBC 3.11 L Hgb 10.8 Hct 30.8 MCV 99 H MCH 35 H MCHC 35 H RDW 13.6 Plt Count 161 Lymph % (Auto) 17.8 [place] % (Auto) 10.9 H Eos % (Auto) 7.7 H Baso % (Auto) 0.7 Lymph # 0.9 L [place] # 0.6 Eos # 0.4 Baso # 0.0 Seg Neutrophils % 62.9 Seg Neutrophils # 3.3 Sodium 142 D Potassium 4.0 Chloride 104.1 Carbon Dioxide 24 Anion Gap 18 BUN 8 Creatinine 0.9 Estimated GFR > 60 BUN/Creatinine Ratio 9 Glucose 104 H Calcium 9.5 CA 125 Antigen 7 Medications & Allergies - Medications Allergies/Adverse Reactions: Allergies coconut Allergy (Verified 07/03/18 17:50) Swelling ibuprofen [From Motrin] Allergy (Verified 07/03/18 19:40) Unknown Pt IS able to take Asprin Home Medications: Home Medications Medication Instructions Recorded Confirmed Last Taken Type Gemfibrozil [Lopid] 1 tab PO BID 04/10/18 07/04/18 04/12/18 History hydroCHLOROthiazide 25 mg PO DAILY 04/12/18 07/04/18 04/12/18 History [Hydrochlorothiazide] Lisinopril [Zestril TAB] 40 mg PO QDAY tablet 04/14/18 07/04/18 Unknown Rx Aspirin [Adult Aspirin] 81 mg PO DAILY 07/04/18 07/04/18 Unknown History Folic Acid [Folvite] 1 mg PO QDAY 07/04/18 07/04/18 Unknown History Active Medications: Generic Name Dose Route Start Last Admin Trade Name Freq PRN Reason Stop Dose Admin Acetaminophen 650 mg 07/03/18 21:57 07/06/18 21:06 Tylenol PO 650 mg Q4H PRN Administration Pain MILD(1-3)/Fever >100.5/TOBAR Enoxaparin Sodium 40 mg 07/04/18 10:00 07/06/18 09:09 Lovenox SUB-Q 40 mg QDAY SOPHIA Administration Sodium Chloride 1,000 mls @ 75 mls/hr 07/03/18 23:00 07/07/18 00:21 Nacl 0.9% 1000 Ml IV 75 mls/hr DIRECT SOPHIA Administration Morphine Sulfate 2 mg 07/03/18 21:57 Morphine IV Q4H PRN Pain, Moderate (4-6) Ondansetron HCl 4 mg 07/03/18 21:57 Zofran IV Q8H PRN Nausea And Vomiting Sodium Chloride 10 ml 07/03/18 22:00 07/06/18 21:07 Sodium Chloride Flush Syringe 10 Ml IV 10 ml BID SOPHIA Administration Sodium Chloride 10 ml 07/03/18 21:57 Sodium Chloride Flush Syringe 10 Ml IV PRN PRN LINE FLUSH
[2018-07-07] MEDS: SODIUM CHLORIDE FLUSH SYRINGE 10 ML IV SCH ×2 (09:57→22:06)
[2018-07-07] MEDS: LOVENOX SUB-Q SCH (09:58)
--- NOTE | 2018-07-07 10:21 | Progress Note ---
Assessment and Plan Assessment and plan: Pulmonary nodules. The pulmonary nodules are concerning for malignancy. Oncology following. Follow-up tumor markers. Pulmonary to perform bronchoscopy per Nursing. Chest pain. Etiology likely secondary to above. Follow cardiac isoenzymes. Consider stress thallium after bronchoscopy Hypertension. Continue antihypertensive medications. History Interval history: No new issues overnight. Patient reportedly for bronchoscopy this morning. Hospitalist Physical - Constitutional Vitals: Temp Pulse Resp BP Pulse Ox 98.6 F 71 18 137/75 97 07/07/18 07:56 07/07/18 07:56 07/07/18 07:56 07/07/18 07:56 07/07/18 07:56 General appearance: Present: no acute distress - EENT Eyes: Present: PERRL, EOM intact ENT: hearing intact, clear oral mucosa, dentition normal - Neck Neck: Present: supple, normal ROM - Respiratory Respiratory effort: normal Respiratory: bilateral: CTA - Cardiovascular Rhythm: regular Heart Sounds: Present: S1 & S2. Absent: gallop, rub - Extremities Extremities: no ischemia, No edema, Full ROM - Abdominal General gastrointestinal: soft, non-tender, non-distended, normal bowel sounds - Integumentary Integumentary: Present: clear, warm, dry - Neurologic Neurologic: CNII-XII intact, moves all extremities Results - Labs CBC & Chem 7: 07/07/18 05:08 07/07/18 05:08 Labs: Laboratory Last Values WBC 5.2 K/mm3 (4.5-11.0) 07/07/18 05:08 RBC 3.11 M/mm3 (3.65-5.03) L 07/07/18 05:08 Hgb 10.8 gm/dl (10.1-14.3) 07/07/18 05:08 Hct 30.8 % (30.3-42.9) 07/07/18 05:08 MCV 99 fl (79-97) H 07/07/18 05:08 MCH 35 pg (28-32) H 07/07/18 05:08 MCHC 35 % (30-34) H 07/07/18 05:08 RDW 13.6 % (13.2-15.2) 07/07/18 05:08 Plt Count 161 K/mm3 (140-440) 07/07/18 05:08 Lymph % (Auto) 17.8 % (13.4-35.0) 07/07/18 05:08 [place] % (Auto) 10.9 % (0.0-7.3) H 07/07/18 05:08 Eos % (Auto) 7.7 % (0.0-4.3) H 07/07/18 05:08 Baso % (Auto) 0.7 % (0.0-1.8) 07/07/18 05:08 Lymph # 0.9 K/mm3 (1.2-5.4) L 07/07/18 05:08 [place] # 0.6 K/mm3 (0.0-0.8) 07/07/18 05:08 Eos # 0.4 K/mm3 (0.0-0.4) 07/07/18 05:08 Baso # 0.0 K/mm3 (0.0-0.1) 07/07/18 05:08 Seg Neutrophils % 62.9 % (40.0-70.0) 07/07/18 05:08 Seg Neutrophils # 3.3 K/mm3 (1.8-7.7) 07/07/18 05:08 546.52 ng/mlDDU (0-234) H 07/03/18 21:57 Sodium 142 mmol/L (137-145) D 07/07/18 05:08 Potassium 4.0 mmol/L (3.6-5.0) 07/07/18 05:08 Chloride 104.1 mmol/L (98-107) 07/07/18 05:08 Carbon Dioxide 24 mmol/L (22-30) 07/07/18 05:08 18 mmol/L 07/07/18 05:08 BUN 8 mg/dL (7-17) 07/07/18 05:08 0.9 mg/dL (0.7-1.2) 07/07/18 05:08 Estimated GFR > 60 ml/min 07/07/18 05:08 9 % 07/07/18 05:08 Glucose 104 mg/dL (65-100) H 07/07/18 05:08 POC Glucose 99 (70-105) 07/04/18 11:14 Calcium 9.5 mg/dL (8.4-10.2) 07/07/18 05:08 0.40 mg/dL (0.1-1.2) 07/03/18 18:34 AST 22 units/L (5-40) 07/03/18 18:34 ALT 11 units/L (7-56) 07/03/18 18:34 93 units/L (35-129) 07/03/18 18:34 < 0.010 ng/mL (0.00-0.029) 07/03/18 18:34 6.9 g/dL (6.3-8.2) 07/03/18 18:34 3.9 g/dL (3.9-5) 07/03/18 18:34 1.3 % 07/03/18 18:34 7 U/mL (<35) 07/04/18 10:37 Straw (Yellow) 07/03/18 20:10 Clear (Clear) 07/03/18 20:10 6.0 (5.0-7.0) 07/03/18 20:10 Ur Specific [place] 1.013 (1.003-1.030) 07/03/18 20:10 <15 mg/dl mg/dL (Negative) 07/03/18 20:10 Neg mg/dL (Negative) 07/03/18 20:10 Neg mg/dL (Negative) 07/03/18 20:10 Neg (Negative) 07/03/18 20:10 Neg (Negative) 07/03/18 20:10 Neg (Negative) 07/03/18 20:10 < 2.0 mg/dL (<2.0) 07/03/18 20:10 Ur Leukocyte Esterase Tr (Negative) 07/03/18 20:10 1.0 /HPF (0.0-6.0) 07/03/18 20:10 1.0 /HPF (0.0-6.0) 07/03/18 20:10 U Epithel Cells (Auto) 1.0 /HPF (0-13.0) 07/03/18 20:10 1+ /HPF (Negative) 07/03/18 20:10 Active Medications - Current Medications Current Medications: Generic Name Dose Route Start Last Admin Trade Name Freq PRN Reason Stop Dose Admin Acetaminophen 650 mg 07/03/18 21:57 07/06/18 21:06 Tylenol PO 650 mg Q4H PRN Administration Pain MILD(1-3)/Fever >100.5/TOBAR Enoxaparin Sodium 40 mg 07/04/18 10:00 07/07/18 09:58 Lovenox SUB-Q Not Given QDAY SOPHIA Sodium Chloride 1,000 mls @ 75 mls/hr 07/03/18 23:00 07/07/18 00:21 Nacl 0.9% 1000 Ml IV 75 mls/hr DIRECT SOPHIA Administration Morphine Sulfate 2 mg 07/03/18 21:57 Morphine IV Q4H PRN Pain, Moderate (4-6) Ondansetron HCl 4 mg 07/03/18 21:57 Zofran IV Q8H PRN Nausea And Vomiting Sodium Chloride 10 ml 07/03/18 22:00 07/07/18 09:57 Sodium Chloride Flush Syringe 10 Ml IV 10 ml BID SOPHIA Administration Sodium Chloride 10 ml 07/03/18 21:57 Sodium Chloride Flush Syringe 10 Ml IV PRN PRN LINE FLUSH
--- NOTE | 2018-07-07 13:57 | Progress Note ---
Assessment and Plan 57-year-old woman with a history of hypertension comes emergency room with complaints of chest pain located in the left substernal area described as sharp, intermittent for 5 minutes, intensity 5/10, no radiation, cannot identify exacerbating or relieving factors. Admits to shortness breath, palpitation, no nausea vomiting, diaphoresis. Has a left tibial fracture, sedentary lifestyle Patient sleeping at this time. Unable to get further history. 07/07/18 Patient awake. Patient is on room air. No acute respiratory distress. O2 sat uration 97%. Patient denies cough, chest pain, or shortness of breath at this time. Patient has episode of left sided chest pain for about 10-15 minutes few days ago. Recommend cardiology evaluation also. Recommend workup for GE reflux. Patient denies fever, chills, night sweats - Patient Problems (1) Chest pain Current Visit: Yes Status: Acute Qualifiers: Chest pain type: unspecified Qualified Code(s): R07.9 - Chest pain, unspecified Plan to address problem: Recommend cardiology evaluation. Also recommend upper GI series for GE reflux. (2) Pulmonary nodule Current Visit: Yes Status: Acute Plan to address problem: Appears not big enough nodule to get hospital insurance representative specimens either by bronchoscopy or by percutaneous needle biopsy. (3) Mediastinal adenopathy Current Visit: Yes Status: Acute Plan to address problem: Differential possible granulomatous disease like sarcoidosis or fungal infections or TB. Also R/O Malignancy. Patient has no active signs of TB. No cough, no fever, no night sweats. Applying PPD. Obtaining AMARJIT level Recommend thoracic surgery evaluation for mediastinoscopy. (4) Hypotension Current Visit: Yes Status: Acute Qualifiers: Hypotension type: unspecified hypotension type Qualified Code(s): I95.9 - Hypotension, unspecified Plan to address problem: Patient blood pressure cam up Patient to days blood pressure 148/85 Subjective Date of service: 07/07/18 Principal diagnosis: lung lesions and LN in chest Interval history: Patient awake. Patient is on room air. No acute respiratory distress. O2 saturation 97%. Patient denies cough, chest pain, or shortness of breath at this time. Patient has episode of left sided chest pain for about 10-15 minutes few days ago. Recommend cardiology evaluation also. Recommend workup for GE reflux. Patient denies fever, chills, night sweats. Objective Vital Signs - 12hr 07/07/18 07/07/18 07/07/18 04:22 07:56 10:00 Temperature 98.0 F 98.6 F Pulse Rate 74 71 74 Respiratory 18 18 18 Rate Blood Pressure 148/85 137/75 O2 Sat by Pulse 99 97 Oximetry 07/07/18 11:54 Temperature 98.3 F Pulse Rate 76 Respiratory 18 Rate Blood Pressure 148/85 O2 Sat by Pulse 97 Oximetry Constitutional: no acute distress, asleep Eyes: non-icteric ENT: oropharynx moist Neck: supple, no JVD Ascultation: Bilateral: clear Cardiovascular: regular rate and rhythm Gastrointestinal: normoactive bowel sounds, soft, non-tender Integumentary: normal Extremities: no cyanosis, no edema Neurologic: non-focal exam, pupils equal and round Psychiatric: other (Patient sleeping) CBC and BMP: 07/07/18 05:08 07/07/18 05:08 ABG, PT/INR, D-dimer: PT/INR, D-dimer 546.52 ng/mlDDU (0-234) H 07/03/18 21:57 Abnormal lab findings: Abnormal Labs 07/03/18 07/03/18 07/03/18 18:34 18:34 21:57 RBC 3.51 L MCV 98 H MCH 34 H MCHC [place] % (Auto) Eos % (Auto) Lymph # Seg Neutrophils % D-Dimer 546.52 H Sodium 133 L Potassium 3.3 L Chloride 89.9 L BUN 21 H Glucose 124 H 07/04/18 07/04/18 07/07/18 05:22 05:22 05:08 RBC 3.41 L 3.11 L MCV 99 H MCH 34 H 35 H MCHC 35 H 35 H [place] % (Auto) 7.9 H 10.9 H Eos % (Auto) 7.7 H Lymph # 0.9 L Seg Neutrophils % 71.0 H D-Dimer Sodium 135 L Potassium 3.5 L Chloride 94.3 L BUN Glucose 07/07/18 05:08 RBC MCV MCH MCHC [place] % (Auto) Eos % (Auto) Lymph # Seg Neutrophils % D-Dimer Sodium Potassium Chloride BUN Glucose 104 H
[2018-07-07] MEDS: MORPHINE IV PRN (20:14)
[2018-07-07] MEDS ORDERED: APLISOL ID ONE (22:00)
[2018-07-08] MEDS: MORPHINE IV PRN ×2 (02:16→20:30)
[2018-07-08] MEDS: NACL 0.9% 1000 ML 1,000 ML IV SCH ×2 (02:22→20:30)
[2018-07-08] MEDS: LOVENOX SUB-Q SCH (11:01)
--- NOTE | 2018-07-08 11:33 | Hem/Onc Progress Note ---
Assessment and Plan 1. Lung nodules. 2. Hilar and mediastinal lymph nodes. 3. CT abdomen did not show any liver lesions. 4. There is no clinically breast mass. 5. tumor markers. 6. History of chest pain. 7. History of hypertension. 8. Interventional Radiology consultation for possible biopsy. CT abdo done - no liver lesions pulm consult - done CA 125 not elevated 07/08 - d/w Dr Gilbert - mediastenoscopic bx suggested - ? OP follow up d/w RN - cardio inx being evaluated - Patient Problems (1) Mediastinal adenopathy Current Visit: Yes Status: Acute Subjective Date of service: 07/08/18 Principal diagnosis: chest LN andlung lesions Interval history: d/w dr Bradford Objective - Constitutional Vitals: Last Vital Signs Temp 98.2 F 07/08/18 08:01 Pulse 74 07/08/18 08:01 Resp 18 07/08/18 08:01 BP 150/81 07/08/18 08:01 Pulse Ox 100 07/08/18 08:01 Pain Intensity (0-10): denies any pain General appearance: no acute distress Performance status: 3-limited selfcare - EENT Eyes: EOM intact ENT: clear oral mucosa Lymph node exam: negative cervical - Neck Neck: normal ROM - Respiratory Respiratory effort: Positive: normal Respiratory: bilateral: diminished - Cardiovascular Heart Sounds: Present: S1 & S2 Extremities: No edema - Gastrointestinal General gastrointestinal: Present: soft, non-tender Rectal Exam: deferred - Genitourinary Female genitourinary: Present: deferred - Integumentary Integumentary: warm - Musculoskeletal Musculoskeletal: strength equal bilaterally - Neurologic Neurologic: moves all extremities - Labs Lab Results: Laboratory Results - last 24 hr 07/07/18 16:46 POC ABG pH 7.444 POC ABG pCO2 37.7 POC ABG pO2 95 POC ABG HCO3 25.9 POC ABG Total CO2 27 POC ABG O2 Sat 98 POC ABG Base Excess 2 FiO2 21 Medications & Allergies - Medications Allergies/Adverse Reactions: Allergies coconut Allergy (Verified 07/03/18 17:50) Swelling ibuprofen [From Motrin] Allergy (Verified 07/03/18 19:40) Unknown Pt IS able to take Asprin Home Medications: Home Medications Medication Instructions Recorded Confirmed Last Taken Type Gemfibrozil [Lopid] 1 tab PO BID 04/10/18 07/04/18 04/12/18 History hydroCHLOROthiazide 25 mg PO DAILY 04/12/18 07/04/18 04/12/18 History [Hydrochlorothiazide] Lisinopril [Zestril TAB] 40 mg PO QDAY tablet 04/14/18 07/04/18 Unknown Rx Aspirin [Adult Aspirin] 81 mg PO DAILY 07/04/18 07/04/18 Unknown History Folic Acid [Folvite] 1 mg PO QDAY 07/04/18 07/04/18 Unknown History Active Medications: Generic Name Dose Route Start Last Admin Trade Name Freq PRN Reason Stop Dose Admin Acetaminophen 650 mg 07/03/18 21:57 07/06/18 21:06 Tylenol PO 650 mg Q4H PRN Administration Pain MILD(1-3)/Fever >100.5/TOBAR Enoxaparin Sodium 40 mg 07/04/18 10:00 07/08/18 11:01 Lovenox SUB-Q 40 mg QDAY SOPHIA Administration Sodium Chloride 1,000 mls @ 75 mls/hr 07/03/18 23:00 07/08/18 02:22 Nacl 0.9% 1000 Ml IV 75 mls/hr DIRECT SOPHIA Administration Morphine Sulfate 2 mg 07/03/18 21:57 07/08/18 02:16 Morphine IV 2 mg Q4H PRN Administration Pain, Moderate (4-6) Ondansetron HCl 4 mg 07/03/18 21:57 Zofran IV Q8H PRN Nausea And Vomiting Sodium Chloride 10 ml 07/03/18 22:00 07/07/18 22:06 Sodium Chloride Flush Syringe 10 Ml IV 10 ml BID SOPHIA Administration Sodium Chloride 10 ml 07/03/18 21:57 Sodium Chloride Flush Syringe 10 Ml IV PRN PRN LINE FLUSH
--- NOTE | 2018-07-08 17:03 | Progress Note ---
Assessment and Plan Assessment and plan: Patient is a 57 yo woman with a history of hypertension who presents with chest pains, troponin T negative x 2 but D-Dimer was elevated so CTA chest done * CTA chest IMPRESSION: Extensive bilateral mediastinal and hilar adenopathy and numerous bilateral pulmonary nodules, concerning for metastatic/malignant process . * CTA neck IMPRESSION: No arterial occlusion or stenosis. Dominant left vertebral artery. * CT abd/pelvis with contrast IMPRESSION: The pelvis demonstrate no adenopathy or mass. Diverticulosis. No diverticulitis Umbilical hernia containing fat and anterior wall transverse colon Chest pains, atypical: stress test in am Bilateral Lung nodules, too small for Bronchoscopy or needle aspiration per Dr. Hyde: [facility] patient extensively on how to follow up the lung nodules with serial chest scans of the chest Hyponatremia, dehydration, resolved Hypokalemia, treated, stable ARF, tubular stasis with vasomotor nephropathy, poa, resolved, Cr went from 1.2 to 0.9 Elevated D-Dimer Drop in platelet but still normal: stop DVT prophylaxis Stress test in am, if negative then d/c home PPD placed on left forearm 07/07/18 around 9pm History Interval history: Patient was seen and examined. Follow-up on current diagnosis chest pains, resolved. No overnight events reported to me. Patient denies any chest pain, shortness breath, nausea/vomiting or severe headaches. Imaging, nursing note, chart, labs and old chart reviewed. Discussed with patient. Hospitalist Physical - Physical exam Narrative exam: Gen: WDWN, NAD, Awake, Alert, Orientated HEENT: NCAT, EOMI, PERRL, OP Clear Neck: supple, no adenopathy, no thyromegaly, no JVD CVS/Heart: RRR, normal S1S2, pulses present bilaterally Chest/Lungs: CTA B, Symmetrical chest expansion, good air entry bilaterally GI/Abdomen: soft, NTND, good bowel sounds, no guarding or rebound /Bladder: no suprapubic tenderness, no CVA or paraspinal tenderness Extermity/Skin: no c/c/e, no obvious rash MSK: FROM x 4 Neuro: CN 2-12 grossly intact, no new focal deficits Psych: calm - Constitutional Vitals: Temp Pulse Resp BP Pulse Ox 98.5 F 76 18 147/76 99 07/08/18 16:27 07/08/18 16:27 07/08/18 16:27 07/08/18 16:27 07/08/18 16:27 General appearance: Present: no acute distress Results - Labs CBC & Chem 7: 07/07/18 05:08 07/07/18 05:08 Labs: Laboratory Last Values WBC 5.2 K/mm3 (4.5-11.0) 07/07/18 05:08 RBC 3.11 M/mm3 (3.65-5.03) L 07/07/18 05:08 Hgb 10.8 gm/dl (10.1-14.3) 07/07/18 05:08 Hct 30.8 % (30.3-42.9) 07/07/18 05:08 MCV 99 fl (79-97) H 07/07/18 05:08 MCH 35 pg (28-32) H 07/07/18 05:08 MCHC 35 % (30-34) H 07/07/18 05:08 RDW 13.6 % (13.2-15.2) 07/07/18 05:08 Plt Count 161 K/mm3 (140-440) 07/07/18 05:08 Lymph % (Auto) 17.8 % (13.4-35.0) 07/07/18 05:08 [place] % (Auto) 10.9 % (0.0-7.3) H 07/07/18 05:08 Eos % (Auto) 7.7 % (0.0-4.3) H 07/07/18 05:08 Baso % (Auto) 0.7 % (0.0-1.8) 07/07/18 05:08 Lymph # 0.9 K/mm3 (1.2-5.4) L 07/07/18 05:08 [place] # 0.6 K/mm3 (0.0-0.8) 07/07/18 05:08 Eos # 0.4 K/mm3 (0.0-0.4) 07/07/18 05:08 Baso # 0.0 K/mm3 (0.0-0.1) 07/07/18 05:08 Seg Neutrophils % 62.9 % (40.0-70.0) 07/07/18 05:08 Seg Neutrophils # 3.3 K/mm3 (1.8-7.7) 07/07/18 05:08 546.52 ng/mlDDU (0-234) H 07/03/18 21:57 POC ABG pH 7.444 (7.35-7.45) 07/07/18 16:46 POC ABG pCO2 37.7 (35-45) 07/07/18 16:46 POC ABG pO2 95 (80-105) 07/07/18 16:46 POC ABG HCO3 25.9 (22-26 mml/L) 07/07/18 16:46 POC ABG Total CO2 27 (23-27mmol/L) 07/07/18 16:46 POC ABG O2 Sat 98 07/07/18 16:46 POC ABG Base Excess 2 ((-2) - (+3)mmol/L) 07/07/18 16:46 21 % 07/07/18 16:46 Sodium 142 mmol/L (137-145) D 07/07/18 05:08 Potassium 4.0 mmol/L (3.6-5.0) 07/07/18 05:08 Chloride 104.1 mmol/L (98-107) 07/07/18 05:08 Carbon Dioxide 24 mmol/L (22-30) 07/07/18 05:08 18 mmol/L 07/07/18 05:08 BUN 8 mg/dL (7-17) 07/07/18 05:08 0.9 mg/dL (0.7-1.2) 07/07/18 05:08 Estimated GFR > 60 ml/min 07/07/18 05:08 9 % 07/07/18 05:08 Glucose 104 mg/dL (65-100) H 07/07/18 05:08 POC Glucose 99 (70-105) 07/04/18 11:14 Calcium 9.5 mg/dL (8.4-10.2) 07/07/18 05:08 0.40 mg/dL (0.1-1.2) 07/03/18 18:34 AST 22 units/L (5-40) 07/03/18 18:34 ALT 11 units/L (7-56) 07/03/18 18:34 93 units/L (35-129) 07/03/18 18:34 < 0.010 ng/mL (0.00-0.029) 07/03/18 18:34 6.9 g/dL (6.3-8.2) 07/03/18 18:34 3.9 g/dL (3.9-5) 07/03/18 18:34 1.3 % 07/03/18 18:34 15 U/mL (<34) 07/05/18 04:27 7 U/mL (<35) 07/04/18 10:37 Straw (Yellow) 07/03/18 20:10 Clear (Clear) 07/03/18 20:10 6.0 (5.0-7.0) 07/03/18 20:10 Ur Specific [place] 1.013 (1.003-1.030) 07/03/18 20:10 <15 mg/dl mg/dL (Negative) 07/03/18 20:10 Neg mg/dL (Negative) 07/03/18 20:10 Neg mg/dL (Negative) 07/03/18 20:10 Neg (Negative) 07/03/18 20:10 Neg (Negative) 07/03/18 20:10 Neg (Negative) 07/03/18 20:10 < 2.0 mg/dL (<2.0) 07/03/18 20:10 Ur Leukocyte Esterase Tr (Negative) 07/03/18 20:10 1.0 /HPF (0.0-6.0) 07/03/18 20:10 1.0 /HPF (0.0-6.0) 07/03/18 20:10 U Epithel Cells (Auto) 1.0 /HPF (0-13.0) 07/03/18 20:10 1+ /HPF (Negative) 07/03/18 20:10 Active Medications - Current Medications Current Medications: Generic Name Dose Route Start Last Admin Trade Name Freq PRN Reason Stop Dose Admin Acetaminophen 650 mg 07/03/18 21:57 07/06/18 21:06 Tylenol PO 650 mg Q4H PRN Administration Pain MILD(1-3)/Fever >100.5/TOBAR Enoxaparin Sodium 40 mg 07/04/18 10:00 07/08/18 11:01 Lovenox SUB-Q 40 mg QDAY SOPHIA Administration Sodium Chloride 1,000 mls @ 75 mls/hr 07/03/18 23:00 07/08/18 02:22 Nacl 0.9% 1000 Ml IV 75 mls/hr DIRECT SOPHIA Administration Morphine Sulfate 2 mg 07/03/18 21:57 07/08/18 02:16 Morphine IV 2 mg Q4H PRN Administration Pain, Moderate (4-6) Ondansetron HCl 4 mg 07/03/18 21:57 Zofran IV Q8H PRN Nausea And Vomiting Sodium Chloride 10 ml 07/03/18 22:00 07/07/18 22:06 Sodium Chloride Flush Syringe 10 Ml IV 10 ml BID SOPHIA Administration Sodium Chloride 10 ml 07/03/18 21:57 Sodium Chloride Flush Syringe 10 Ml IV PRN PRN LINE FLUSH
[2018-07-08] MEDS: SODIUM CHLORIDE FLUSH SYRINGE 10 ML IV SCH ×2 (22:07→22:08)
[2018-07-09] MEDS: MORPHINE IV PRN ×2 (06:43→22:42)
[2018-07-09 07:16] LABS: Hematocrit 30.7 % (30.3-42.9); Hemoglobin 10.5 gm/dl (10.1-14.3); Mean Corpuscular HGB Conc 34 % (30-34); Mean Corpuscular Volume 99 fl (79-97); Platelet Count 172 K/mm3 (140-440); Red Cell Distribution Width 14.3 % (13.2-15.2)
[2018-07-09 07:37] LABS: BUN/Creatinine Ratio 11; Blood Urea Nitrogen 10 mg/dL (7-17); Calcium 9.1 mg/dL (8.4-10.2); Hemolysis Index 2
--- NOTE | 2018-07-09 07:40 | Hem/Onc Progress Note ---
Assessment and Plan 1. Lung nodules. 2. Hilar and mediastinal lymph nodes. 3. CT abdomen did not show any liver lesions. 4. There is no clinically breast mass. 5. tumor markers. 6. History of chest pain. 7. History of hypertension. 8. Interventional Radiology consultation for possible biopsy. CT abdo done - no liver lesions pulm consult - done CA 125 not elevated 07/09 - mediastenoscopic bx suggested - ? OP follow up - Patient Problems (1) Mediastinal adenopathy Current Visit: Yes Status: Acute Subjective Date of service: 07/09/18 Principal diagnosis: lung and chest lesions Interval history: no chest pain Objective - Constitutional Vitals: Last Vital Signs Temp 98.1 F 07/09/18 04:19 Pulse 69 07/09/18 04:19 Resp 18 07/09/18 07:13 BP 126/68 07/09/18 04:19 Pulse Ox 98 07/09/18 04:19 Pain Intensity (0-10): denies any pain General appearance: no acute distress Performance status: 2- selfcare, ambulatory - EENT Eyes: EOM intact ENT: hearing intact, clear oral mucosa Lymph node exam: negative cervical - Neck Neck: normal ROM - Respiratory Respiratory effort: Positive: normal Respiratory: bilateral: CTA - Cardiovascular Heart Sounds: Present: S1 & S2 Extremities: No edema - Gastrointestinal General gastrointestinal: Present: soft, non-tender Rectal Exam: deferred - Genitourinary Female genitourinary: Present: deferred - Integumentary Integumentary: warm - Musculoskeletal Musculoskeletal: strength equal bilaterally - Neurologic Neurologic: moves all extremities - Psychiatric Psychiatric: appropriate mood/affect - Labs Lab Results: Laboratory Results - last 24 hr 07/05/18 07/09/18 07/09/18 04:27 06:25 06:25 WBC 4.9 RBC 3.10 L Hgb 10.5 Hct 30.7 MCV 99 H MCH 34 H MCHC 34 RDW 14.3 Plt Count 172 Sodium 142 Potassium 4.2 Chloride 103.9 Carbon Dioxide 26 Anion Gap 16 BUN 10 Creatinine 0.9 Estimated GFR > 60 BUN/Creatinine Ratio 11 Glucose 91 Calcium 9.1 Troponin T < 0.010 CA 19-9 Antigen 15 Medications & Allergies - Medications Allergies/Adverse Reactions: Allergies coconut Allergy (Verified 07/03/18 17:50) Swelling ibuprofen [From Motrin] Allergy (Verified 07/03/18 19:40) Unknown Pt IS able to take Asprin Home Medications: Home Medications Medication Instructions Recorded Confirmed Last Taken Type Gemfibrozil [Lopid] 1 tab PO BID 04/10/18 07/04/18 04/12/18 History hydroCHLOROthiazide 25 mg PO DAILY 04/12/18 07/04/18 04/12/18 History [Hydrochlorothiazide] Lisinopril [Zestril TAB] 40 mg PO QDAY tablet 04/14/18 07/04/18 Unknown Rx Aspirin [Adult Aspirin] 81 mg PO DAILY 07/04/18 07/04/18 Unknown History Folic Acid [Folvite] 1 mg PO QDAY 07/04/18 07/04/18 Unknown History Active Medications: Generic Name Dose Route Start Last Admin Trade Name Freq PRN Reason Stop Dose Admin Acetaminophen 650 mg 07/03/18 21:57 07/06/18 21:06 Tylenol PO 650 mg Q4H PRN Administration Pain MILD(1-3)/Fever >100.5/TOBAR Enoxaparin Sodium 40 mg 07/04/18 10:00 07/08/18 11:01 Lovenox SUB-Q 40 mg QDAY SOPHIA Administration Sodium Chloride 1,000 mls @ 75 mls/hr 07/03/18 23:00 07/08/18 20:30 Nacl 0.9% 1000 Ml IV 75 mls/hr DIRECT SOPHIA Administration Morphine Sulfate 2 mg 07/03/18 21:57 07/09/18 06:43 Morphine IV 2 mg Q4H PRN Administration Pain, Moderate (4-6) Ondansetron HCl 4 mg 07/03/18 21:57 Zofran IV Q8H PRN Nausea And Vomiting Sodium Chloride 10 ml 07/03/18 22:00 07/08/18 22:08 Sodium Chloride Flush Syringe 10 Ml IV 10 ml BID SOPHIA Administration Sodium Chloride 10 ml 07/03/18 21:57 Sodium Chloride Flush Syringe 10 Ml IV PRN PRN LINE FLUSH
[2018-07-09] MEDS ORDERED: LEXISCAN IV ONE (08:58)
[2018-07-09] MEDS: LOVENOX SUB-Q SCH (10:44)
[2018-07-09] MEDS: SODIUM CHLORIDE FLUSH SYRINGE 10 ML IV SCH ×2 (10:45→22:37)
--- NOTE | 2018-07-09 13:35 | Progress Note ---
Assessment and Plan Assessment and plan: Patient is a 57 yo woman with a history of hypertension who presents with chest pains, troponin T negative x 2 but D-Dimer was elevated so CTA chest done * CTA chest IMPRESSION: Extensive bilateral mediastinal and hilar adenopathy and numerous bilateral pulmonary nodules, concerning for metastatic/malignant process . * CTA neck IMPRESSION: No arterial occlusion or stenosis. Dominant left vertebral artery. * CT abd/pelvis with contrast IMPRESSION: The pelvis demonstrate no adenopathy or mass. Diverticulosis. No diverticulitis Umbilical hernia containing fat and anterior wall transverse colon Chest pains, atypical, most likely costochrondritis, stress test negative Bilateral Lung nodules, too small for Bronchoscopy or needle aspiration per Dr. Hyde: Counselled patient extensively on how to follow up the lung nodules with serial chest scans of the chest Hyponatremia, dehydration, resolved Hypokalemia, treated, stable ARF, tubular stasis with vasomotor nephropathy, poa, resolved, Cr went from 1.2 to 0.9 Elevated D-Dimer, inflammatory, no PE Drop in platelet but still normal: stop DVT prophylaxis Stress test in am negative, wanted to d/c home but PPD placed on left forearm 07/07/18 around 9pm, needs to be read this evening and patient would prefer to read the PPD and go home tomorrow. Anticipated discharge tomorrow History Interval history: Patient was seen and examined. Follow-up on current diagnosis chest pains, resolved. No overnight events reported to me. Patient denies any chest pain, shortness breath, nausea/vomiting or severe headaches. Imaging, nursing note, chart, labs and old chart reviewed. Discussed with patient. Hospitalist Physical - Physical exam Narrative exam: Gen: WDWN, NAD, Awake, Alert, Orientated HEENT: NCAT, EOMI, PERRL, OP Clear Neck: supple, no adenopathy, no thyromegaly, no JVD CVS/Heart: RRR, normal S1S2, pulses present bilaterally Chest/Lungs: CTA B, Symmetrical chest expansion, good air entry bilaterally GI/Abdomen: soft, NTND, good bowel sounds, no guarding or rebound /Bladder: no suprapubic tenderness, no CVA or paraspinal tenderness Extermity/Skin: no c/c/e, no obvious rash MSK: FROM x 4 Neuro: CN 2-12 grossly intact, no new focal deficits Psych: calm - Constitutional Vitals: Temp Pulse Resp BP Pulse Ox 97.9 F 89 18 130/85 100 07/09/18 11:38 07/09/18 11:38 07/09/18 11:38 07/09/18 11:38 07/09/18 11:38 General appearance: Present: no acute distress Results - Labs CBC & Chem 7: 07/09/18 06:25 07/09/18 06:25 Labs: Laboratory Last Values WBC 4.9 K/mm3 (4.5-11.0) 07/09/18 06:25 RBC 3.10 M/mm3 (3.65-5.03) L 07/09/18 06:25 Hgb 10.5 gm/dl (10.1-14.3) 07/09/18 06:25 Hct 30.7 % (30.3-42.9) 07/09/18 06:25 MCV 99 fl (79-97) H 07/09/18 06:25 MCH 34 pg (28-32) H 07/09/18 06:25 MCHC 34 % (30-34) 07/09/18 06:25 RDW 14.3 % (13.2-15.2) 07/09/18 06:25 Plt Count 172 K/mm3 (140-440) 07/09/18 06:25 Lymph % (Auto) 17.8 % (13.4-35.0) 07/07/18 05:08 [place] % (Auto) 10.9 % (0.0-7.3) H 07/07/18 05:08 Eos % (Auto) 7.7 % (0.0-4.3) H 07/07/18 05:08 Baso % (Auto) 0.7 % (0.0-1.8) 07/07/18 05:08 Lymph # 0.9 K/mm3 (1.2-5.4) L 07/07/18 05:08 [place] # 0.6 K/mm3 (0.0-0.8) 07/07/18 05:08 Eos # 0.4 K/mm3 (0.0-0.4) 07/07/18 05:08 Baso # 0.0 K/mm3 (0.0-0.1) 07/07/18 05:08 Seg Neutrophils % 62.9 % (40.0-70.0) 07/07/18 05:08 Seg Neutrophils # 3.3 K/mm3 (1.8-7.7) 07/07/18 05:08 546.52 ng/mlDDU (0-234) H 07/03/18 21:57 POC ABG pH 7.444 (7.35-7.45) 07/07/18 16:46 POC ABG pCO2 37.7 (35-45) 07/07/18 16:46 POC ABG pO2 95 (80-105) 07/07/18 16:46 POC ABG HCO3 25.9 (22-26 mml/L) 07/07/18 16:46 POC ABG Total CO2 27 (23-27mmol/L) 07/07/18 16:46 POC ABG O2 Sat 98 07/07/18 16:46 POC ABG Base Excess 2 ((-2) - (+3)mmol/L) 07/07/18 16:46 21 % 07/07/18 16:46 Sodium 142 mmol/L (137-145) 07/09/18 06:25 Potassium 4.2 mmol/L (3.6-5.0) 07/09/18 06:25 Chloride 103.9 mmol/L (98-107) 07/09/18 06:25 Carbon Dioxide 26 mmol/L (22-30) 07/09/18 06:25 16 mmol/L 07/09/18 06:25 BUN 10 mg/dL (7-17) 07/09/18 06:25 0.9 mg/dL (0.7-1.2) 07/09/18 06:25 Estimated GFR > 60 ml/min 07/09/18 06:25 11 % 07/09/18 06:25 Glucose 91 mg/dL (65-100) 07/09/18 06:25 POC Glucose 99 (70-105) 07/04/18 11:14 Calcium 9.1 mg/dL (8.4-10.2) 07/09/18 06:25 0.40 mg/dL (0.1-1.2) 07/03/18 18:34 AST 22 units/L (5-40) 07/03/18 18:34 ALT 11 units/L (7-56) 07/03/18 18:34 93 units/L (35-129) 07/03/18 18:34 < 0.010 ng/mL (0.00-0.029) 07/09/18 06:25 6.9 g/dL (6.3-8.2) 07/03/18 18:34 3.9 g/dL (3.9-5) 07/03/18 18:34 1.3 % 07/03/18 18:34 15 U/mL (<34) 07/05/18 04:27 7 U/mL (<35) 07/04/18 10:37 Straw (Yellow) 07/03/18 20:10 Clear (Clear) 07/03/18 20:10 6.0 (5.0-7.0) 07/03/18 20:10 Ur Specific [place] 1.013 (1.003-1.030) 07/03/18 20:10 <15 mg/dl mg/dL (Negative) 07/03/18 20:10 Neg mg/dL (Negative) 07/03/18 20:10 Neg mg/dL (Negative) 07/03/18 20:10 Neg (Negative) 07/03/18 20:10 Neg (Negative) 07/03/18 20:10 Neg (Negative) 07/03/18 20:10 < 2.0 mg/dL (<2.0) 07/03/18 20:10 Ur Leukocyte Esterase Tr (Negative) 07/03/18 20:10 1.0 /HPF (0.0-6.0) 07/03/18 20:10 1.0 /HPF (0.0-6.0) 07/03/18 20:10 U Epithel Cells (Auto) 1.0 /HPF (0-13.0) 07/03/18 20:10 1+ /HPF (Negative) 07/03/18 20:10 Active Medications - Current Medications Current Medications: Generic Name Dose Route Start Last Admin Trade Name Freq PRN Reason Stop Dose Admin Acetaminophen 650 mg 07/03/18 21:57 07/06/18 21:06 Tylenol PO 650 mg Q4H PRN Administration Pain MILD(1-3)/Fever >100.5/TOBAR Enoxaparin Sodium 40 mg 07/04/18 10:00 07/09/18 10:44 Lovenox SUB-Q 40 mg QDAY SOPHIA Administration Sodium Chloride 1,000 mls @ 75 mls/hr 07/03/18 23:00 07/08/18 20:30 Nacl 0.9% 1000 Ml IV 75 mls/hr DIRECT SOPHIA Administration Morphine Sulfate 2 mg 07/03/18 21:57 07/09/18 06:43 Morphine IV 2 mg Q4H PRN Administration Pain, Moderate (4-6) Ondansetron HCl 4 mg 07/03/18 21:57 Zofran IV Q8H PRN Nausea And Vomiting Sodium Chloride 10 ml 07/03/18 22:00 07/09/18 10:45 Sodium Chloride Flush Syringe 10 Ml IV 10 ml BID SOPHIA Administration Sodium Chloride 10 ml 07/03/18 21:57 Sodium Chloride Flush Syringe 10 Ml IV PRN PRN LINE FLUSH
--- NOTE | 2018-07-09 19:52 | Event Note ---
Date: 07/09/18 Patient has mediastinal adenopathy. Patient need mediastinioscopy. Strongly recommend to refer to the thoracic surgeon for mediastinoscopy or transfer the patient to the [facility], [facility], [place] or to the [facility]. [place].
--- NOTE | 2018-07-09 19:54 | Progress Note ---
Assessment and Plan Patient awake. Patient is on room air. No acute respiratory distress. O2 saturation 100%. Patient denies cough, chest pain, or shortness of breath at this time. Patient has episode of left sided chest pain for about 10-15 minutes few days ago. Recommend cardiology evaluation also. Recommend workup for GE reflux. Patient denies fever, chills, night sweats. Patients AMARJIT level still pending. Patient has mediastinal adenopathy. Patient need mediastinioscopy. Strongly recommend to refer the patient to the thoracic surgeon for mediastinoscopy or transfer the patient to the [facility] or to the [facility]. - Patient Problems (1) Chest pain Current Visit: Yes Status: Acute Qualifiers: Chest pain type: unspecified Qualified Code(s): R07.9 - Chest pain, unspecified Plan to address problem: Recommend cardiology evaluation. Also recommend upper GI series for GE reflux. (2) Pulmonary nodule Current Visit: Yes Status: Acute Plan to address problem: Appears not big enough nodule to get retail representative specimens either by bronchoscopy or by percutaneous needle biopsy. (3) Mediastinal adenopathy Current Visit: Yes Status: Acute Plan to address problem: Differential possible granulomatous disease like sarcoidosis or fungal infections or TB. Also R/O Malignancy. Patient has no active signs of TB. No cough, no fever, no night sweats. Applying PPD. AMARJIT level still pending. Recommend thoracic surgery referal for mediastinoscopy. (4) Hypotension Current Visit: Yes Status: Acute Qualifiers: Hypotension type: unspecified hypotension type Qualified Code(s): I95.9 - Hypotension, unspecified Plan to address problem: Patient blood pressure cam up Patient to days blood pressure 152/84 Subjective Date of service: 07/09/18 Principal diagnosis: chest LN andlung lesions Interval history: Patient awake. Patient is on room air. No acute respiratory distress. O2 saturation 100%. Patient denies cough, chest pain, or shortness of breath at this time. Patient has episode of left sided chest pain for about 10-15 minutes few days ago. Recommend cardiology evaluation also. Recommend workup for GE reflux. Patient denies fever, chills, night sweats. Patients AMARJIT level still pending. Patient has mediastinal adenopathy. Patient need mediastinioscopy. Strongly recommend to refer the patient to the thoracic surgeon for mediastinoscopy or transfer the patient to the [facility] or to the [facility]. Objective Vital Signs - 12hr 07/09/18 07/09/18 07/09/18 08:01 08:53 08:58 Temperature 98.0 F Pulse Rate 73 Respiratory 18 Rate Blood Pressure 157/84 174/92 161/96 Blood Pressure [Left] O2 Sat by Pulse 99 Oximetry 07/09/18 07/09/18 07/09/18 09:12 09:14 09:16 Temperature Pulse Rate Respiratory Rate Blood Pressure 170/102 156/90 159/90 Blood Pressure [Left] O2 Sat by Pulse Oximetry 07/09/18 07/09/18 07/09/18 09:17 09:18 10:00 Temperature Pulse Rate Respiratory 18 Rate Blood Pressure 162/93 159/89 Blood Pressure [Left] O2 Sat by Pulse 97 Oximetry 07/09/18 07/09/18 07/09/18 11:36 11:38 15:20 Temperature 97.9 F 97.9 F 97.9 F Pulse Rate 89 79 Respiratory 18 18 18 Rate Blood Pressure 130/85 152/84 Blood Pressure 130/85 [Left] O2 Sat by Pulse 100 100 Oximetry Constitutional: no acute distress, alert Eyes: non-icteric ENT: oropharynx moist Neck: supple, no JVD Ascultation: Bilateral: clear Cardiovascular: regular rate and rhythm Gastrointestinal: normoactive bowel sounds, soft, non-tender Integumentary: normal Extremities: no cyanosis, no edema Neurologic: non-focal exam, pupils equal and round Psychiatric: other (Patient sleeping) CBC and BMP: 07/09/18 06:25 07/09/18 06:25 ABG, PT/INR, D-dimer: ABG POC ABG pH 7.444 (7.35-7.45) 07/07/18 16:46 POC ABG pCO2 37.7 (35-45) 07/07/18 16:46 POC ABG pO2 95 (80-105) 07/07/18 16:46 POC ABG HCO3 25.9 (22-26 mml/L) 07/07/18 16:46 POC ABG Total CO2 27 (23-27mmol/L) 07/07/18 16:46 POC ABG O2 Sat 98 07/07/18 16:46 PT/INR, D-dimer 546.52 ng/mlDDU (0-234) H 07/03/18 21:57 Abnormal lab findings: Abnormal Labs 07/03/18 07/03/18 07/03/18 18:34 18:34 21:57 RBC 3.51 L MCV 98 H MCH 34 H MCHC [place] % (Auto) Eos % (Auto) Lymph # Seg Neutrophils % D-Dimer 546.52 H Sodium 133 L Potassium 3.3 L Chloride 89.9 L BUN 21 H Glucose 124 H 07/04/18 07/04/18 07/07/18 05:22 05:22 05:08 RBC 3.41 L 3.11 L MCV 99 H MCH 34 H 35 H MCHC 35 H 35 H [place] % (Auto) 7.9 H 10.9 H Eos % (Auto) 7.7 H Lymph # 0.9 L Seg Neutrophils % 71.0 H D-Dimer Sodium 135 L Potassium 3.5 L Chloride 94.3 L BUN Glucose 07/07/18 07/09/18 05:08 06:25 RBC 3.10 L MCV 99 H MCH 34 H MCHC [place] % (Auto) Eos % (Auto) Lymph # Seg Neutrophils % D-Dimer Sodium Potassium Chloride BUN Glucose 104 H
[2018-07-09] MEDS: NACL 0.9% 1000 ML 1,000 ML IV SCH (22:36)
--- NOTE | 2018-07-09 22:59 | Treadmill Report ---
NUCLEAR CARDIAC IMAGING INDICATION FOR PROCEDURE: Chest pain. Informed consent was obtained. Rest and stress nuclear cardiac imaging was performed following the intravenous administration of 10 and 28 mCi of technetium-99m Myoview respectively per protocol. Vasodilator stress was achieved with the intravenous administration of 0.4 mg of Lexiscan per protocol. Imaging was obtained in a 180-degree arc from 45 degrees [place] to 45 degrees LPO. After data acquisition and reconstruction, the images were processed and reoriented into the vertical long, horizontal long, and horizontal short axis slices. A polar color map of the horizontal short axis slices was generated and reviewed. The rotating planar images reviewed in cinematic format on the computer console. Gated SPECT imaging demonstrates a post-stress left ventricular ejection fraction of 69%. Left ventricular segmental wall motion appears normal. Myocardial perfusion imaging demonstrates homogeneous distribution of the isotope throughout the left ventricle between stress and rest. There is no significant cavity change between stress and rest. Nuclear cardiac imaging demonstrates grossly normal post-stress left ventricular systolic function with no significant evidence for myocardial ischemia or necrosis. [facility]# [id number] TANYA/SOREN
--- NOTE | 2018-07-10 07:48 | Hem/Onc Progress Note ---
Assessment and Plan 1. Lung nodules. 2. Hilar and mediastinal lymph nodes. 3. CT abdomen did not show any liver lesions. 4. There is no clinically breast mass. 5. tumor markers. 6. History of chest pain. 7. History of hypertension. 8. Interventional Radiology consultation for possible biopsy. CT abdo done - no liver lesions pulm consult - done CA 125 not elevated mediastenoscopic bx suggested - ? OP follow up referral to nigel suggested - Patient Problems (1) Mediastinal adenopathy Status: Acute Subjective Date of service: 07/10/18 Principal diagnosis: lung and LN in chest Interval history: no chest pain Objective - Constitutional Vitals: Last Vital Signs Temp 98.4 F 07/10/18 04:12 Pulse 70 07/10/18 04:12 Resp 18 07/10/18 04:12 BP 130/69 07/10/18 04:12 Pulse Ox 98 07/10/18 04:12 Pain Intensity (0-10): denies any pain General appearance: no acute distress Performance status: 4-completely disabled - EENT Eyes: EOM intact ENT: hearing intact Lymph node exam: negative cervical - Neck Neck: supple, normal ROM - Respiratory Respiratory effort: Positive: normal Respiratory: bilateral: CTA - Cardiovascular Heart Sounds: Present: S1 & S2 Extremities: No edema, normal temperature - Gastrointestinal General gastrointestinal: Present: soft, non-tender Rectal Exam: deferred - Genitourinary Female genitourinary: Present: deferred - Integumentary Integumentary: warm - Musculoskeletal Musculoskeletal: strength equal bilaterally - Neurologic Neurologic: moves all extremities Medications & Allergies - Medications Allergies/Adverse Reactions: Allergies coconut Allergy (Verified 07/14/18 16:50) Swelling ibuprofen [From Motrin] Allergy (Verified 07/14/18 16:50) Unknown Pt IS able to take Asprin Home Medications: Home Medications Medication Instructions Recorded Confirmed Last Taken Type Acetaminophen [Acetaminophen TAB] 325 mg PO Q4H PRN #15 tablet 07/10/18 Unknown Rx Aspirin [Adult Aspirin] 81 mg PO DAILY #30 07/10/18 07/04/18 Unknown Rx Folic Acid [Folvite] 1 mg PO QDAY #30 07/10/18 07/04/18 Unknown Rx Lisinopril [Zestril TAB] 20 mg PO QDAY #30 tablet 07/10/18 Unknown Rx Naproxen [EC-Naprosyn] 375 mg PO Q8HR PRN #14 tablet. 07/14/18 Unknown Rx Active Medications: Generic Name Dose Route Start Last Admin Trade Name Sari PRN Reason Stop Dose Admin Acetaminophen 650 mg 07/03/18 21:57 07/06/18 21:06 Tylenol PO 650 mg Q4H PRN Administration Pain MILD(1-3)/Fever >100.5/TOBAR Enoxaparin Sodium 40 mg 07/04/18 10:00 07/09/18 10:44 Lovenox SUB-Q 40 mg QDAY SOPHIA Administration Sodium Chloride 1,000 mls @ 75 mls/hr 07/03/18 23:00 07/09/18 22:36 Nacl 0.9% 1000 Ml IV 75 mls/hr DIRECT SOPHIA Administration Morphine Sulfate 2 mg 07/03/18 21:57 07/09/18 22:42 Morphine IV 2 mg Q4H PRN Administration Pain, Moderate (4-6) Ondansetron HCl 4 mg 07/03/18 21:57 Zofran IV Q8H PRN Nausea And Vomiting Sodium Chloride 10 ml 07/03/18 22:00 07/09/18 22:37 Sodium Chloride Flush Syringe 10 Ml IV 10 ml BID SOPHIA Administration Sodium Chloride 10 ml 07/03/18 21:57 Sodium Chloride Flush Syringe 10 Ml IV PRN PRN LINE FLUSH
[2018-07-10 07:50] VITALS: BP 144/77
--- NOTE | 2018-07-10 08:01 | Discharge Summary ---
Providers - Providers Date of Admission: 07/03/18 21:55 Date of discharge: 07/10/18 Attending physician: NARCISA BARONE 07/03/18 22:41 Consult to Physician [CONS] Routine Comment: Consulting Provider: MERCEDES JACINTO Physician Instructions: Reason For Exam: lung nodules 07/04/18 08:38 Consult to Physician [CONS] Routine Comment: Consulting Provider: VICTOR MANUEL FUNG Physician Instructions: Reason For Exam: lung lesion bx 07/04/18 14:40 Consult to Physician [CONS] Routine Comment: Consulting Provider: BEE TALLEY Physician Instructions: Reason For Exam: pulm nodules [facility] Condition: Stable Hospital course: Patient is a 57 yo woman with a history of hypertension who presents with chest pains, troponin T negative x 2 but D-Dimer was elevated so CTA chest done * CTA chest IMPRESSION: Extensive bilateral mediastinal and hilar adenopathy and numerous bilateral pulmonary nodules, concerning for metastatic/malignant process . * CTA neck IMPRESSION: No arterial occlusion or stenosis. Dominant left vertebral artery. * CT abd/pelvis with contrast IMPRESSION: The pelvis demonstrate no adenopathy or mass. Diverticulosis. No diverticulitis Umbilical hernia containing fat and anterior wall transverse colon Chest pains, atypical, most likely costochrondritis, stress test negative Bilateral Lung nodules, too small for Bronchoscopy or needle aspiration per Dr. Hyde: Counselled patient extensively on how to follow up the lung nodules with serial chest scans of the chest Hyponatremia, dehydration, resolved Hypokalemia, treated, stable ARF, tubular stasis with vasomotor nephropathy, poa, resolved, Cr went from 1.2 to 0.9 Elevated D-Dimer, inflammatory, no PE Drop in platelet but still normal: stop DVT prophylaxis Disposition: [facility] PPD placed on left forearm 07/07/18 around 9pm and I read the PPD at 9am on 07/10/18 with 0 mm induration left forearm (negative). Disposition: TO HOME OR SELFCARE Time spent for discharge: 34 minutes Core Measure Documentation - Palliative Care Palliative Care/ Comfort Measures: Not Applicable - Core Measures Any of the following diagnoses?: none - VTE Discharge Requirements Deep Vein Thrombosis/Pulmonary Embolism Present on Admission: No Has pt received <5 days of overlap therapy or INR<2.0: No Anticoagulant overlap therapy prescribed at discharge: No Contraindication No Overlap Therapy order at DC: Not Indicated Exam - Physical Exam Narrative exam: Gen: WDWN, NAD, Awake, Alert, Orientated HEENT: NCAT, EOMI, PERRL, OP Clear Neck: supple, no adenopathy, no thyromegaly, no JVD CVS/Heart: RRR, normal S1S2, pulses present bilaterally Chest/Lungs: CTA B, Symmetrical chest expansion, good air entry bilaterally GI/Abdomen: soft, NTND, good bowel sounds, no guarding or rebound /Bladder: no suprapubic tenderness, no CVA or paraspinal tenderness Extermity/Skin: no c/c/e, no obvious rash MSK: FROM x 4 Neuro: CN 2-12 grossly intact, no new focal deficits Psych: calm - Constitutional Vitals: Temp Pulse Resp BP Pulse Ox 98.3 F 69 16 144/77 100 07/10/18 07:46 07/10/18 07:46 07/10/18 07:46 07/10/18 07:46 07/10/18 07:46 Plan Activity: other (no strenous activity until cleared by PCP) Diet: regular Additional Instructions: You have enlarged lymph nodes in your chest and you need to see a Thoracic surgeon for a procedure called mediastinoscopy. Follow up with: SHIRA FARRIS MD [Staff Physician] - 7 [facility] [Primary Care Provider[facility] - 7 Days BEE TALLEY MD [Staff Physician] - 7 Days MERCEDES JACINTO MD [Staff Physician] - 7 Days Prescriptions: Lisinopril [Zestril TAB] 20 mg PO QDAY #30 tablet
[2018-07-10] MEDS: LOVENOX SUB-Q SCH (09:25)
[2018-07-10] MEDS: SODIUM CHLORIDE FLUSH SYRINGE 10 ML IV SCH (09:25)
[2018-07-13 12:23] LABS: ANA Screen, IFA Negative (Negative)
== END 2018-07-10 10:30 | disposition home or self-care (01) | DRG 205 ==
LOC: ED 17:45 → 4A 21:55 → OBSVTOIN 21:55
PROVIDERS: ADMIT Internal Medicine; ATTEND Internal Medicine
PROC: 4A033R1 Measurement of Arterial Saturation, Peripheral, Percutaneous Approach (ICD-10-PCS; principal; 2018-07-07)
DX: M94.0 Chondrocostal junction syndrome [Tietze] (principal); N17.0 Acute kidney failure with tubular necrosis; E87.1 Hypo-osmolality and hyponatremia; I95.9 Hypotension, unspecified; E78.00 Pure hypercholesterolemia, unspecified; R59.0 Localized enlarged lymph nodes; E86.0 Dehydration; E87.6 Hypokalemia; R91.1 Solitary pulmonary nodule; I10 Essential (primary) hypertension; Z82.49 Family history of ischemic heart disease and other diseases of the circulatory system; Z88.8 Allergy status to other drugs, medicaments and biological substances; Z88.6 Allergy status to analgesic agent; Z79.899 Other long term (current) drug therapy
CPT/HCPCS: 36415; 36600; 70498; 71046; 71275; 74177; 78452; 80048; 80053; 81001; 82106; 82164; 82378; 82803; 82962; 84484; 85025; 85027; 85379; 86038; 86300; 86301; 86304; 93005; 93010; 93017; G0378; A9502; J1650; J2270; J2785; J7030; Q9967

== ENCOUNTER 2018-07-10 22:38 | Emergency (ER) | payer SELFPAY ==
[2018-07-11] MEDS ORDERED: TYLENOL PO ONE (00:16)
[2018-07-11] MEDS ORDERED: TYLENOL ONE (00:19)
[2018-07-11 00:47] VITALS: BP 111/70
== END 2018-07-11 02:00 | disposition left against medical advice (07) ==
LOC: ED 22:38
DX: M79.672 Pain in left foot (principal); Z53.21 Procedure and treatment not carried out due to patient leaving prior to being seen by health care provider

== ENCOUNTER 2018-07-14 16:49 | Emergency (ER) | payer OTHER ==
--- NOTE | 2018-07-14 17:15 | Emergency Department Report ---
Chief Complaint: Extremity Injury, Upper Stated Complaint: (L) SIDE NUMB Time Seen by Provider: 07/14/18 17:12 - HPI History of Present Illness: This is a 57 y.o. F that presents to ER with tingling to left fingers x 4 days. Patient states she was discharged from this ER 07/10/18. States while hospitalized IV infiltrated and caused numbness and tingling to left hand every since. Denies recent injury. - Exam Vital Signs: Vital Signs 07/14/18 17:12 Temperature 98.6 F Pulse Rate 75 Respiratory 16 Rate Blood Pressure 147/78 [Right] O2 Sat by Pulse 97 Oximetry MSE screening note: Focused history and physical exam performed. Due to findings the following was ordered: ED Disposition for MSE Condition: Stable
--- NOTE | 2018-07-14 20:39 | Emergency Department Report ---
Upper Extremity - HPI Chief Complaint: Extremity Injury, Upper Stated Complaint: (L) SIDE NUMB Time Seen by Provider: 07/14/18 17:12 Other History: Pt presents to the ED with c/o left hand tingling that began on 07/10. she states she had blood drawn on 07/10 and began having the tingling after. she denies any pain, edema, increased warmth, drainage, or weakness. she denies any complete numbness. she denies any PMHx. she does not have a PCP. pt has unknown allergy to ibuprofen. states has taken aspirin and naproxen. ED Review of Systems ROS: Stated complaint: (L) SIDE NUMB Other details as noted in HPI Comment: All other systems reviewed and negative ED Past Medical Hx - Past Medical History Hx Hypertension: Yes Hx Congestive Heart Failure: No Hx Diabetes: No Hx Asthma: No Hx COPD: No Additional medical history: high cholestrol. anemia. L foot fx - Social History Smoking Status: Never Smoker Substance Use Type: Alcohol - Medications Home Medications: Home Medications Medication Instructions Recorded Confirmed Last Taken Type Acetaminophen [Acetaminophen TAB] 325 mg PO Q4H PRN #15 tablet 07/10/18 Unknown Rx Aspirin [Adult Aspirin] 81 mg PO DAILY #30 07/10/18 07/04/18 Unknown Rx Folic Acid [Folvite] 1 mg PO QDAY #30 07/10/18 07/04/18 Unknown Rx Lisinopril [Zestril TAB] 20 mg PO QDAY #30 tablet 07/10/18 Unknown Rx Naproxen [EC-Naprosyn] 375 mg PO Q8HR PRN #14 tablet. 07/14/18 Unknown Rx Upper Extremity Exam - Exam General: Vital signs noted. No distress. Alert and acting appropriately. Arm Exam: No Arm/Humerus Tenderness, No Arm Deformity Elbow: Yes Normal Range of Motion in Elbow, No Elbow Tenderness, No Elbow Deformity Forearm: No Forearm Tenderness, No Forearm Deformity, No Pain with Pronation, No Pain with Supination Wrist: Yes Normal ROM in Wrist, No Wrist Tenderness, No Wrist Deformity, No Snuffbox Tenderness, No Pain with Axial Thumb Compression Hand: Yes Normal ROM in Digit(s), No Hand Tenderness, No Hand Deformity, No Digit Tenderness, No Digit(s) Deformity, No Tendon Dysfunction CMS Exam: Yes Normal Distal Pulses, Yes Normal Capillary Refill, Yes Normal Distal Sensation (pt sensation is fully intact in the left hand to light touch and deep touch, FROM of the left hand, no edema of the hand, no erythema, no increased warmth, no signs of infection, pt has 2+ radial pulse), No Broken Skin ED Course Vital Signs 07/14/18 17:12 Temperature 98.6 F Pulse Rate 75 Respiratory 16 Rate Blood Pressure 147/78 [Right] O2 Sat by Pulse 97 Oximetry ED Medical Decision Making - Medical Decision Making Pt presents to the ED with c/o left hand tingling that began on 07/10. she states she had blood drawn on 07/10 and began having the tingling after. she denies any pain, edema, increased warmth, drainage, or weakness. she denies any complete numbness. she denies any PMHx. she does not have a PCP. pt has unknown allergy to ibuprofen. states has taken aspirin and naproxen. pt has FROM of the fingers, hand, and wrist, no edema, no deformity, no visualized abnormality, radial pulse intact, no sensory deficit on exam. May use nicolasa bandage during the day. may apply heating pad. can take anti-inflammatory as needed. follow up with a primary care doctor in the next 2-3 days. return to the emergency room for any new or worsening symptoms. Critical care attestation.: If time is entered above; I have spent that time in minutes in the direct care of this critically ill patient, excluding procedure time. ED Disposition Clinical Impression: Hand tingling Qualifiers: Laterality: left Qualified Code(s): R20.2 - Paresthesia of skin Disposition: DC-01 TO HOME OR SELFCARE Is pt being admited?: No Does the pt Need Aspirin: No Condition: Stable Additional Instructions: May use nicolasa bandage during the day. may apply heating pad. can take anti- inflammatory as needed. follow up with a primary care doctor in the next 2-3 days. return to the emergency room for any new or worsening symptoms. Prescriptions: Naproxen [EC-Naprosyn] 375 mg PO Q8HR PRN #14 tablet.dr LUND Reason: Pain, Moderate (4-6) Referrals: BUCKY MENDEZ MD [Primary Care Provider] - 2-3 Days Time of Disposition: 20:38 Print Language: KINYARWANDA
[2018-07-14 20:52] VITALS: BP 144/87
== END 2018-07-14 20:58 | disposition home or self-care (01) ==
LOC: ED 16:49
DX: M79.642 Pain in left hand (principal); R20.2 Paresthesia of skin; I10 Essential (primary) hypertension; E78.00 Pure hypercholesterolemia, unspecified; Z86.2 Personal history of diseases of the blood and blood-forming organs and certain disorders involving the immune mechanism; Z88.6 Allergy status to analgesic agent; Z91.018 Allergy to other foods
CPT/HCPCS: 99282

== ENCOUNTER 2018-07-18 21:24 | Emergency (ER) | payer SELFPAY ==
--- NOTE | 2018-07-18 21:30 | Emergency Department Report ---
Stated Complaint: RIGHT FOOR PAIN Time Seen by Provider: 07/18/18 21:30 - HPI History of Present Illness: 2 day hx r foot pain she has fungal infection on bottom of foot as she tells me from walking in same wet shoes all the time. - ROS Review of Systems: fungal lesion of foot she has had before no cp no sob no abd pain no fever - Exam Vital Signs: Vital Signs 07/18/18 21:31 Temperature 98.0 F Pulse Rate 77 Respiratory 16 Rate Blood Pressure 139/80 O2 Sat by Pulse 99 Oximetry Physical Exam: a/o x 4 no focal def ambulatory s1s2 lungs cta abd snt fungus at the bottom of foot MSE screening note: Focused history and physical exam performed. Due to findings the following was ordered: discussed with pt and she will use otc meds no life threatening condition on exam. Patient discussed with doctor:: BERE FLORENTINO ED Disposition for MSE Condition: Stable
[2018-07-18 21:32] VITALS: BP 139/80
== END 2018-07-18 21:30 | disposition left against medical advice (07) ==
LOC: ED 21:24
DX: M79.671 Pain in right foot (principal); Z53.21 Procedure and treatment not carried out due to patient leaving prior to being seen by health care provider

== ENCOUNTER 2018-08-04 21:15 | Emergency (ER) | payer SELFPAY ==
[2018-08-04 21:51] LABS: Basophils % (Auto) 1.2 % (0.0-1.8); Eosinophils % (Auto) 1.2 % (0.0-4.3); Hematocrit 35.6 % (30.3-42.9); Hemoglobin 12.1 gm/dl (10.1-14.3); Lymphocytes # (Auto) 1.9 K/mm3 (1.2-5.4); Lymphocytes % (Auto) 45.8 % (13.4-35.0); Mean Corpuscular HGB Conc 34 % (30-34); Mean Corpuscular Volume 99 fl (79-97); Monocytes # (Auto) 0.4 K/mm3 (0.0-0.8); Monocytes % (Auto) 8.4 % (0.0-7.3); Platelet Count 183 K/mm3 (140-440); Red Blood Count 3.59 M/mm3 (3.65-5.03); Red Cell Distribution Width 16.5 % (13.2-15.2)
--- NOTE | 2018-08-04 21:53 | Emergency Department Report ---
ED Neuro Deficit HPI - General Chief Complaint: Neuro Symptoms/Deficit Stated Complaint: LEFT SIDE PAIN SWOLLEN EYE Time Seen by Provider: 08/04/18 21:27 Source: patient Mode of arrival: Ambulatory Limitations: Physical Limitation - History of Present Illness Initial Comments: 57-year-old female presents to ED with complaint of left-sided pain and diffi culty seeing out of her left eye since getting off of work. Triage note states pt reports weakness, however, upon clarification she confirms pain, NOT weakness. Presenting Symptoms: Present: Blurred/Loss of Vision History of same: No Severity: moderate On Anticoagulants: No Associated Symptoms: other (reports pain to left arm and leg) - Related Data Home Medications: Previous Rx's Medication Instructions Recorded Last Taken Type Acetaminophen [Acetaminophen TAB] 325 mg PO Q4H PRN #15 tablet 07/10/18 Unknown Rx Aspirin [Adult Aspirin] 81 mg PO DAILY #30 07/10/18 Unknown Rx Folic Acid [Folvite] 1 mg PO QDAY #30 07/10/18 Unknown Rx Lisinopril [Zestril TAB] 20 mg PO QDAY #30 tablet 07/10/18 Unknown Rx Naproxen [EC-Naprosyn] 375 mg PO Q8HR PRN #14 tablet. 07/14/18 Unknown Rx Allergies/Adverse Reactions: Allergies Allergy/AdvReac Type Severity Reaction Status Date / Time coconut Allergy Swelling Verified 07/14/18 16:50 ibuprofen [From Motrin] Allergy Unknown Verified 07/14/18 16:50 ED Review of Systems ROS: Stated complaint: LEFT SIDE PAIN SWOLLEN EYE Other details as noted in HPI Comment: All other systems reviewed and negative Eyes: vision change Musculoskeletal: other (left arm and leg pain) ED Past Medical Hx - Past Medical History Hx Hypertension: Yes Hx Congestive Heart Failure: No Hx Diabetes: No Hx Asthma: No Hx COPD: No Additional medical history: high cholestrol. anemia. L foot fx - Social History Smoking Status: Current Every Day Smoker Substance Use Type: Alcohol - Medications Home Medications: Home Medications Medication Instructions Recorded Confirmed Last Taken Type Acetaminophen [Acetaminophen TAB] 325 mg PO Q4H PRN #15 tablet 07/10/18 Unknown Rx Aspirin [Adult Aspirin] 81 mg PO DAILY #30 07/10/18 07/04/18 Unknown Rx Folic Acid [Folvite] 1 mg PO QDAY #30 07/10/18 07/04/18 Unknown Rx Lisinopril [Zestril TAB] 20 mg PO QDAY #30 tablet 07/10/18 Unknown Rx Naproxen [EC-Naprosyn] 375 mg PO Q8HR PRN #14 tablet. 07/14/18 Unknown Rx ED Neuro Physical Exam - General Limitations: Physical Limitation General appearance: alert, in no apparent distress, appears intoxicated Suspected Stroke: No - Head Head exam: Present: normocephalic - Eye Eye exam: Present: PERRL, EOMI, periorbital swelling (left eyelids swollen shut), other (normal vision when left eyelids are opened) - ENT ENT exam: Present: mucous membranes moist - Neck Neck exam: Present: normal inspection - Respiratory Respiratory exam: Present: normal lung sounds bilaterally. Absent: respiratory distress - Cardiovascular Cardiovascular Exam: Present: regular rate, normal rhythm - GI/Abdominal GI/Abdominal exam: Present: soft. Absent: distended, tenderness - Extremities Exam Extremities exam: Present: normal inspection, full ROM. Absent: tenderness, calf tenderness - NIHSS Assessment Interval: Baseline 1a. Level of Consciousness: alert/keenly responsive 1b. LOC Questions: answers both correctly 1c. LOC Commands: performs tasks correctly 2. Best Gaze: normal 3. Visual: no visual loss 4. Facial Palsy: normal symmetrical movement 5b. Motor Arm Right: drift 5a. Motor Arm Left: drift 6a. Motor Leg Left: drift 6b. Motor Leg Right: drift 7. Limb Ataxia: absent 8. Sensory: normal 9. Best Language: no aphasia 10. Dysarthria: normal 11. Extinction/Inattention: no abnormality Total Score: 4 Stroke Severity: Minor Stroke - Psychiatric Psychiatric exam: Present: normal affect, normal mood - Skin Skin exam: Present: warm, dry, intact, normal color ED Course Vital Signs 08/04/18 08/04/18 08/04/18 21:38 21:45 22:00 Pulse Rate 91 H 83 Respiratory 21 14 Rate Blood Pressure 134/80 O2 Sat by Pulse 96 97 Oximetry 08/04/18 08/04/18 22:15 23:43 Pulse Rate Respiratory Rate Blood Pressure 107/67 106/67 O2 Sat by Pulse 97 Oximetry - Reevaluation(s) Reevaluation #1: 08/04/18 21:52 Stroke alert canceled after evaluation of pt. She is complaining of left sided pain, not weakness. Also reports she is unable to see out of her left eye, however, left eye is swollen shut. Pt does not know why. When I ask pt to separate her eye lids, she reports normal vision. Pt reports ETOH tonight. States she and her coworkers went out for drinks after work. Reevaluation #2: 08/05/18 05:45 Pt has been sleeping comfortably during ED stay. ETOH initially 360. Pt currently A&O x3. Edema to eyelid has improved, pt able to open eye. Ambulates well without assistance, steady gait. Pt appears to be clinically sober at this time. Will discharge home. - Lab Data Result diagrams: 08/04/18 21:40 08/04/18 21:40 Lab Results 08/04/18 08/04/18 08/04/18 Range/Units 21:40 21:40 21:40 WBC 4.2 L (4.5-11.0) K/mm3 RBC 3.59 L (3.65-5.03) M/mm3 Hgb 12.1 (10.1-14.3) gm/dl Hct 35.6 (30.3-42.9) % MCV 99 H (79-97) fl MCH 34 H (28-32) pg MCHC 34 (30-34) % RDW 16.5 H (13.2-15.2) % Plt Count 183 (140-440) K/mm3 Lymph % (Auto) 45.8 H (13.4-35.0) % Mesa % (Auto) 8.4 H (0.0-7.3) % Eos % (Auto) 1.2 (0.0-4.3) % Baso % (Auto) 1.2 (0.0-1.8) % Lymph # 1.9 (1.2-5.4) K/mm3 Mesa # 0.4 (0.0-0.8) K/mm3 Eos # 0.0 (0.0-0.4) K/mm3 Baso # 0.0 (0.0-0.1) K/mm3 Seg Neutrophils % 43.4 (40.0-70.0) % Seg Neutrophils # 1.8 (1.8-7.7) K/mm3 PT 13.3 (12.2-14.9) Sec. INR 1.04 (0.87-1.13) APTT 31.5 (24.2-36.6) Sec. Thrombin Time (15.1-19.6) Sec. Sodium 142 (137-145) mmol/L Potassium 4.0 (3.6-5.0) mmol/L Chloride 104.1 (98-107) mmol/L Carbon Dioxide 22 (22-30) mmol/L Anion Gap 20 mmol/L BUN 14 (7-17) mg/dL Creatinine 1.3 H (0.7-1.2) mg/dL Estimated GFR 51 ml/min BUN/Creatinine Ratio 11 % Glucose 99 (65-100) mg/dL POC Glucose (70-105) Calcium 9.3 (8.4-10.2) mg/dL Troponin T < 0.010 (0.00-0.029) ng/mL Plasma/Serum Alcohol (0-0.07) % 08/04/18 08/04/18 08/04/18 Range/Units 21:40 21:42 21:48 WBC (4.5-11.0) K/mm3 RBC (3.65-5.03) M/mm3 Hgb (10.1-14.3) gm/dl Hct (30.3-42.9) % MCV (79-97) fl MCH (28-32) pg MCHC (30-34) % RDW (13.2-15.2) % Plt Count (140-440) K/mm3 Lymph % (Auto) (13.4-35.0) % Mesa % (Auto) (0.0-7.3) % Eos % (Auto) (0.0-4.3) % Baso % (Auto) (0.0-1.8) % Lymph # (1.2-5.4) K/mm3 [place] # (0.0-0.8) K/mm3 Eos # (0.0-0.4) K/mm3 Baso # (0.0-0.1) K/mm3 Seg Neutrophils % (40.0-70.0) % Seg Neutrophils # (1.8-7.7) K/mm3 PT (12.2-14.9) Sec. INR (0.87-1.13) APTT (24.2-36.6) Sec. Thrombin Time 16.9 (15.1-19.6) Sec. Sodium (137-145) mmol/L Potassium (3.6-5.0) mmol/L Chloride (98-107) mmol/L Carbon Dioxide (22-30) mmol/L Anion Gap mmol/L BUN (7-17) mg/dL Creatinine (0.7-1.2) mg/dL Estimated GFR ml/min BUN/Creatinine Ratio % Glucose (65-100) mg/dL POC Glucose 98 (70-105) Calcium (8.4-10.2) mg/dL Troponin T (0.00-0.029) ng/mL Plasma/Serum Alcohol 0.36 H (0-0.07) % - EKG Data -: EKG Interpreted by Me EKG shows normal: sinus rhythm, axis, QRS complexes, ST-T waves Interpretation: no acute changes, other (RBBB) - Differential Diagnosis CVA, ETOH intoxication Critical care attestation.: If time is entered above; I have spent that time in minutes in the direct care of this critically ill patient, excluding procedure time. ED Disposition Clinical Impression: Alcohol intoxication, Edema of left eyelid Disposition: DC-01 TO HOME OR SELFCARE Is pt being admited?: No Condition: Stable Instructions: Alcohol Intoxication (ED) Referrals: BUCKY MENDEZ MD [Primary Care Provider] - 3-5 Days Time of Disposition: 05:47
--- NOTE | 2018-08-04 21:55 | Cat Scan Report ---
PROCEDURE: CT HEAD/BRAIN WO CON TECHNIQUE: Computerized tomography of the head was performed without contrast material. CT DOSE LENGTH PRODUCT: 920.5 mGycm HISTORY: neuro deficits <6hrs or sx present upon awakening COMPARISONS: None . FINDINGS: There is no evidence of an acute intracranial process, intracranial hemorrhage or mass effect. The ventricles are normal size. There is atherosclerotic vascular calcification of the internal carotid arteries and vertebral arteri es bilaterally at the skull base. The visualized portions of the orbits, paranasal and mastoid sinuses are unremarkable. The bony structures are unremarkable. There is no evidence of fracture. There is mild left periorbital facial soft tissue swelling. IMPRESSION: 1. No evidence of an acute intracranial process, intracranial hemorrhage or mass effect. 2. Atherosclerotic vascular calcification. 3. Left facial periorbital soft tissue swelling. The findings of no evidence of acute infarct and no evidence of intracranial hemorrhage were reported to Dr. Ledesma at 9:49 PM August 04, 2018. This document is electronically signed by Bri Marie MD., August 04 2018 09:53:58 PM ET
[2018-08-04 22:00] LABS: INR 1.04 (0.87-1.13)
[2018-08-04 22:01] LABS: Partial Thromboplastin Time 31.5 Sec. (24.2-36.6)
[2018-08-04 22:10] LABS: BUN/Creatinine Ratio 11; Blood Urea Nitrogen 14 mg/dL (7-17); Calcium 9.3 mg/dL (8.4-10.2); Hemolysis Index 11
[2018-08-05] MEDS ORDERED: TYLENOL PO ONE (01:06)
[2018-08-05 06:24] VITALS: BP 116/84
== END 2018-08-05 06:03 | disposition home or self-care (01) ==
LOC: ED 21:15
DX: H02.846 Edema of left eye, unspecified eyelid (principal); F10.929 Alcohol use, unspecified with intoxication, unspecified; I10 Essential (primary) hypertension; E78.00 Pure hypercholesterolemia, unspecified; Z88.6 Allergy status to analgesic agent; Z91.018 Allergy to other foods
CPT/HCPCS: 36415; 70450; 80048; 82962; 84484; 85025; 85610; 85670; 85730; 93005; 93010; 99284; G0480; 80320

== ENCOUNTER 2018-08-05 20:31 | Emergency (ER) | payer SELFPAY ==
[2018-08-05 21:05] VITALS: BP 127/86
--- NOTE | 2018-08-05 21:08 | Event Note ---
ED Screening Note Date of service: 08/05/18 Time: 21:04 ED Screening Note: 57 y/o female c/o left arm pain today. This initial assessment/diagnostic orders/clinical plan/treatment(s) is/are subject to change based on patients health status, clinical progression and re- assessment by fellow clinical providers in the ED. Further treatment and workup at subsequent clinical providers discretion. Patient/guardian urged not to elope from the ED as their condition may be serious if not clinically assessed and managed. Initial orders include:
--- NOTE | 2018-08-05 21:17 | Emergency Department Report ---
Chief Complaint: Extremity Injury, Upper Stated Complaint: LT ARM PAIN - HPI History of Present Illness: 57 y/o female comes in for left arm pain. Report - Exam Vital Signs: Vital Signs 08/05/18 21:03 Temperature 98.2 F Pulse Rate 89 Respiratory 18 Rate Blood Pressure 127/86 O2 Sat by Pulse 98 Oximetry MSE screening note: Focused history and physical exam performed. Due to findings the following was ordered: ED Disposition for MSE Condition: Stable
[2018-08-05] MEDS ORDERED: NORCO 5/325 PO ONE (22:32)
--- NOTE | 2018-08-05 23:28 | XRay Report ---
PROCEDURE: XR HAND 3+V LT TECHNIQUE: Left hand radiographs, PA, lateral, and oblique views. HISTORY: Left hand pain hand wrist pain COMPARISONS: None . FINDINGS: Fracture (s) and/or Dislocation(s): None . Alignment: Normal . Joint space(s): Normal . Soft tissues: Normal . Bone mineralization: Normal . IMPRESSION: Normal Examination . This document is electronically signed by Zahida Duncan DO., August 05 2018 11:26:22 PM ET
--- NOTE | 2018-08-05 23:43 | Emergency Department Report ---
Upper Extremity - HPI Chief Complaint: Extremity Injury, Upper Stated Complaint: LT ARM PAIN Time Seen by Provider: 08/05/18 22:25 Upper Extremity: Left Wrist Occurred When: Today Mechanism: Hit with Object Severity: mild Symptoms: Yes Pain with Movement, No Deformity, No Limited Range of Movement, No Numbness, No Weakness, No Swelling, No Bruising/Ecchymosis, No Laceration or Abrasion Other History: pt states wrist she hit her wrist versus door at [employer] accidentaly, no wound swelling or bleeding , states pain with movement ED Review of Systems ROS: Stated complaint: LT ARM PAIN Other details as noted in HPI Constitutional: denies: chills, fever Eyes: denies: eye pain, eye discharge, vision change ENT: denies: ear pain, throat pain Respiratory: denies: cough, shortness of breath, wheezing Cardiovascular: denies: chest pain, palpitations Endocrine: no symptoms reported Gastrointestinal: denies: abdominal pain, nausea, diarrhea Genitourinary: denies: urgency, dysuria, discharge Musculoskeletal: other (wrist pain). denies: back pain, joint swelling, arthralgia Skin: denies: rash, lesions Neurological: denies: headache, weakness, paresthesias Psychiatric: denies: anxiety, depression Hematological/Lymphatic: denies: easy bleeding, easy bruising ED Past Medical Hx - Past Medical History Previous Medical History?: Yes Hx Hypertension: Yes Hx Congestive Heart Failure: No Hx Diabetes: No Hx Asthma: No Hx COPD: No Additional medical history: high cholestrol. anemia. L foot fx - Surgical History Past Surgical History?: No - Social History Smoking Status: Never Smoker Substance Use Type: Alcohol - Medications Home Medications: Home Medications Medication Instructions Recorded Confirmed Last Taken Type Acetaminophen [Acetaminophen TAB] 325 mg PO Q4H PRN #15 tablet 07/10/18 Unknown Rx Aspirin [Adult Aspirin] 81 mg PO DAILY #30 07/10/18 07/04/18 Unknown Rx Folic Acid [Folvite] 1 mg PO QDAY #30 07/10/18 07/04/18 Unknown Rx Lisinopril [Zestril TAB] 20 mg PO QDAY #30 tablet 07/10/18 Unknown Rx Naproxen [EC-Naprosyn] 375 mg PO Q8HR PRN #14 clifford. 07/14/18 Unknown Rx Acetaminophen [Acetaminophen TAB] 650 mg PO Q6HR PRN #30 tablet 08/05/18 Unknown Rx Upper Extremity Exam - Exam General: Vital signs noted. No distress. Alert and acting appropriately. Head and Torso: No HEENT Abnormality, No Neck Tenderness, No Chest/Lungs Abnormality, No Abdominal Tenderness, No Back Tenderness Shoulder Exam: Yes Normal Range of Motion in Shoulder, No Shoulder Tenderness, No Clavicle Tenderness, No Shoulder Deformity, No AC Joint Tenderness Arm Exam: No Arm/Humerus Tenderness, No Arm Deformity Elbow: No Elbow Tenderness, No Normal Range of Motion in Elbow, No Elbow Deformity Forearm: No Forearm Tenderness, No Forearm Deformity, No Pain with Pronation, No Pain with Supination Wrist: Yes Wrist Tenderness, Yes Normal ROM in Wrist, No Wrist Deformity, No Snuffbox Tenderness, No Pain with Axial Thumb Compression Hand: Yes Normal ROM in Digit(s), No Hand Tenderness, No Hand Deformity, No Digit Tenderness, No Digit(s) Deformity, No Tendon Dysfunction CMS Exam: Yes Normal Distal Pulses, Yes Normal Capillary Refill, Yes Normal Distal Sensation, No Broken Skin ED Course Vital Signs 08/05/18 21:03 Temperature 98.2 F Pulse Rate 89 Respiratory 18 Rate Blood Pressure 127/86 O2 Sat by Pulse 98 Oximetry ED Medical Decision Making - Radiology Data Radiology results: report reviewed, image reviewed Ordering Physician: LISA JADE Date of Service: 08/05/18 Procedure(s): XR ankle 3+V RT Accession Number(s): [id number] cc: LISA JADE Fluoro Time In Minutes: PROCEDURE: XR ANKLE 3+V RT TECHNIQUE: Right ankle radiographs, AP, lateral, and oblique views. HISTORY: twisted right ankle COMPARISONS: None . FINDINGS: Fracture (s) and/or Dislocation(s): A small ossific density measuring about 1 mm is noted at the tip of the lateral malleolus. . Alignment: Normal . Joint space(s): Normal . Soft tissues: Moderate degree soft tissue swelling is noted over the lateral malleolus. . Bone mineralization: Normal . Foreign bodies: None . Calcaneal spurring: None . IMPRESSION: Tiny ossific density at the tip of the lateral malleolus may represent a small evulsion fracture. Otherwise negative study.. 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 Critical care attestation.: If time is entered above; I have spent that time in minutes in the direct care of this critically ill patient, excluding procedure time. ED Disposition Clinical Impression: Arm pain Qualifiers: Laterality: left Qualified Code(s): M79.602 - Pain in left arm Disposition: DC-01 TO HOME OR SELFCARE Is pt being admited?: No Does the pt Need Aspirin: No Condition: Stable Instructions: Wrist Injury (ED) Prescriptions: Acetaminophen [Acetaminophen TAB] 650 mg PO Q6HR PRN #30 tablet PRN Reason: Pain Referrals: BUCKY MENDEZ MD [Primary Care Provider] - 3-5 Days Forms: Work/School Release Form(ED) Time of Disposition: 23:41
== END 2018-08-05 23:57 | disposition home or self-care (01) ==
LOC: ED 20:31
DX: M79.602 Pain in left arm (principal); I10 Essential (primary) hypertension; E78.00 Pure hypercholesterolemia, unspecified; Z88.5 Allergy status to narcotic agent; Z91.018 Allergy to other foods; Z86.2 Personal history of diseases of the blood and blood-forming organs and certain disorders involving the immune mechanism; Z79.82 Long term (current) use of aspirin; Z79.899 Other long term (current) drug therapy
CPT/HCPCS: 99283